=== PATIENT | female | born 1995 | race Caucasian/White ===

== ENCOUNTER 2018-02-06 08:43 | Inpatient (IN) | payer OTHER, SELFPAY ==
[2018-02-06] MEDS ORDERED: MIDAZOLAM HCL 2 MG/2 ML INJ IV PRN (10:30)
[2018-02-06] MEDS ORDERED: PROMETHAZINE 25 MG/ML VIAL IM PRN (10:30)
[2018-02-06] MEDS ORDERED: PENICILLIN G POT 5 MU/100 ML VIAL IV ONE (10:30)
[2018-02-06] MEDS ORDERED: CARBOPROST TROME 250 MCG/ML IM PRN (10:30)
[2018-02-06] MEDS ORDERED: METHYLERGONOVINE 0.2MG/ML AMP IM PRN (10:30)
[2018-02-06] MEDS ORDERED: MEPERIDINE HCL 25 MG/0.5 ML IV PRN (10:30)
[2018-02-06] MEDS ORDERED: Ringers Lactate 1,000 ML IV PRN (10:30)
[2018-02-06] MEDS ORDERED: BUTORPHANOL 1 MG/ML INJ IV PRN (10:30)
[2018-02-06] MEDS ORDERED: ROPIVACAINE HCL 100 ML IV PRN (10:43)
[2018-02-06] MEDS ORDERED: ROPIVACAINE HCL 0.2% 20ML AMP IV ONE (10:45)
[2018-02-06] MEDS ORDERED: FENTANYL CITR 100 MCG/2 ML IV ONE (10:45)
[2018-02-06 10:46] LABS: RPR Titer ND
[2018-02-06 10:49] LABS: Urine Appearance CLEAR; Urine Bilirubin NEGATIVE (NEG); Urine Blood NEGATIVE (NEG); Urine Color YELLOW; Urine Glucose NEGATIVE (NEG); Urine Protein NEGATIVE (NEG); Urine Specific Gravity 1.015 (1.005-1.030); Urine pH 6.5 (5.0-7.0)
[2018-02-06 10:54] LABS: Absolute Lymphocytes (CBC) 2.3 K/uL (0.7-4.9); Absolute Monocytes 0.8 K/uL (0.1-1.3); Absolute Neutrophil 10.4 K/uL (1.8-8.0); Basophils % 0.1 % (0-1.3); Eosinophils % 0.5 % (0-4.4); Hematocrit 31.7 % (36.0-45.0); Lymphocytes % 16.9 % (15.3-44.8); MCV 86.1 fL (80-100); MPV 8.7 fL (7.6-11.3); Monocytes % 5.7 % (3.3-12.3); RBC Red Blood Cell Count 3.69 M/uL (3.86-4.86)
[2018-02-06] MEDS ORDERED: Ringers Lactate 1,000 ML IV SCH (11:00)
[2018-02-06] MEDS ORDERED: OXYTOCIN/LR 20 UNIT/1,000 ML BAG IV SCH ×2 (11:00→18:00)
[2018-02-06 11:07] LABS: Urine Microscopic Reflex ORDER UMIC
[2018-02-06 11:14] LABS: Urine Bacteria <20 /HPF (<20); Urine Culture Reflex Order REFLEXED; Urine RBC <5 /HPF (NONE SEEN)
[2018-02-06 11:15] LABS: Urine Trichomonas PRESENT (NONE SEEN)
[2018-02-06 11:34] LABS: Glucose Level 83 mg/dL (65-120)
[2018-02-06 14:02] VITALS: BMI 35.4
--- NOTE | 2018-02-06 14:52 | PREOPHP ---
Date of Admission: 02/06/2018 Aisha Marie is a 22-year-old primigravida, 39 weeks 6 days, followed by [facility], but was not good ke eping her visits. Does not know her beta strep status. Discussion with the patient and she has been started on penicillin prophylaxis. Came into our institution in active labor. She is 4 cm on admis syed. She is now 5 cm, 70% effaced, vertex, well applied. Rupture of membranes, very light meconium . FHTs normal, reactive. We are attempting to get [facility] records, but at this point, they are not avai lable. She says she has had a very uneventful up to this point. The family history is noncontributory. The past medical history is noncontributory. She has no allergies. Physical exam is clear. HEENT clear. Pupils equal, round, reactive to light and accommodation. Con junctivae well perfused. No oral, lingual, or buccal lesions. The heart and lungs are grossly olvin l. Breast checks not done. Fundal height compatible with 39 weeks. Extremities are clear and cervi mike exam is as stated, 5 cm, 70% effaced, vertex, -1 station, and dick every 2-3 minutes. Anticipate delivery relatively soon. JAZMYNE/HEIDE Voice ID: [id number]
[2018-02-06] MEDS ORDERED: LIDOCAINE 2% INJ, 20 mL 20 ML ONE ×2 (16:50→17:04)
[2018-02-06] MEDS ORDERED: PENICILLIN 2.5 MU in NA CHLORIDE 0.9% 100 ML IV SCH (17:00)
--- NOTE | 2018-02-06 17:07 | PN ---
The patient is now 5 to 5.5 cm, 90% effaced, vertex, -1 station. She got her epidural. She cannot r eally feel anything. We may have to cut it back as time goes on. Baby still looks real good on the monitor. She will start doing pelvic rocks as I think the baby is in occiput posterior position and we expect more rapid progress once the baby rotates. JAZMYNE/HEIDE Voice ID: [id number] Report ID: [id number]
[2018-02-06] MEDS ORDERED: IBUPROFEN 200 MG TAB PO PRN (17:16)
[2018-02-06] MEDS ORDERED: DOCUSATE NA/SENNA CONC 1 TAB PO PRN (17:16)
[2018-02-06] MEDS ORDERED: DIPHENHYDRAMINE 25 MG TAB/CAP PO PRN (17:16)
[2018-02-06] MEDS ORDERED: BISACODYL 10 MG RECTAL SUPP RECT PRN (17:16)
[2018-02-06] MEDS ORDERED: Oxycodone HCl/Acetaminophen 1 TAB TAB PO PRN (17:16)
[2018-02-06] MEDS ORDERED: ACETAMINOPHEN 500 MG TAB PO PRN (17:16)
[2018-02-06] MEDS ORDERED: metroNIDAZOLE 500 MG TABLET PO ONE (18:49)
[2018-02-06] MEDS ORDERED: metroNIDAZOLE 500 MG TABLET ONE (20:01)
--- NOTE | 2018-02-06 22:43 | PREOPHP ---
Date of Admission: 02/06/2018 She is now complete, pushing quite well. Anticipate delivery relatively soon. JAZMYNE/HEIDE Voice ID: [id number]
[2018-02-06] MEDS: Oxycodone HCl/Acetaminophen 1 TAB TAB PO PRN (22:50)
[2018-02-06 23:48] LABS: RPR (Rapid Plasma Reagin) NON-REACT (NON-REACT)
--- NOTE | 2018-02-07 04:20 | OP ---
Surgeon: Emmanuel Tucker MD A 22-year-old primigravida, seen at [facility]. However, she did not attend regularly. Came into our [facility] itution. No records available. A 39 weeks and 6 days, best estimate. A 4 cm on admission. The patient received epidural anesthesia at 5 cm. Ruptured membranes with very light meconium. Ba by looked good throughout the labor. Second stage of about 30 minutes. Spontaneous vaginal delivery of a 9-pound and 3-ounce male infant. Mild shoulder dystocia. Apgars in my estimation 7 and 9 at 1 and 5 minutes. Midline second-degree laceration and 2 first-degree lacerations involving both labia minora. All sutured with 2-0 chromic after local infiltration. Melgar delivery of the placenta, wh ich was inspected and noted to be intact and normal. Estimated blood loss 400 cc. The patient had u nknown strep status, was given 2 doses of penicillin during the labor, 5 million units initial dose, 2.5 million second dose. Tolerated all procedures well. Final Diagnoses: Intrauterine gestation, 39 weeks and 6 days. Drop in delivery, epidural anesthesia , penicillin prophylaxis, mild shoulder dystocia. JAZMYNE/HEIDE Voice ID: [id number] Report ID: [id number]
[2018-02-07 07:31] VITALS: BP 125/65; TEMP 98
[2018-02-07] MEDS: Oxycodone HCl/Acetaminophen 1 TAB TAB PO PRN ×2 (09:30→19:45)
--- NOTE | 2018-02-08 05:47 | DS ---
Date of Discharge: 02/07/2018 Hospital Course: Radha Dumas 22-year-old, drop-in patient [facility] although she admits she did not go t o her visits on the regular on a regular basis, 39 weeks 6 days, best estimates. Patient came in act seamus labor 4 cm on admission. During the labor, received epidural anesthesia. Second stage of about 20-30 minutes. Spontaneous vaginal delivery of a 9 pounds, 3 ounce male , Apgars 9 at 7 and 9 according to me, 6 and 9 according the nurse, but I had the baby in my hands during the first minute. A midline second degree laceration, simulating episiotomy, repaired with 2-0 chromic, bilateral first -degree lacerations on the labia minora, both sides sutured with 2-0 chromic 2-3 stitches each side. Melgar delivery of the placenta, which was inspected and noted to be intact and normal. Estimated b lood loss approximately 400 cc. Unknown beta strep status. The patient received penicillin x2 durin g the labor. afebrile, ambulating and voiding. Lochia is normal. She will be dismissed later this evening. She can return to my office in 6 weeks for followup, or follow up with [facility], dis missed with tramadol for analgesia and full instructions. No post epidural problems. It was noted t hat she had Trichomonas in her urine. She has been treated for that and knows how this is transmitte d. Information printed has been given. Final Diagnoses: 1.Term intrauterine 39 weeks 6 days. 2.Vaginal delivery. 3.Epidural anesthesia. 4.Penicillin prophylaxis. 5.Mild shoulder dystocia. 6.Trichomonas vaginitis. JAZMYNE/HEIDE Voice ID: [id number] Report ID: [id number]
[2018-02-08 13:16] LABS: HBsAG Nonreactive (Nonreactive)
== END 2018-02-07 20:30 | disposition home or self-care (01) | DRG 774 ==
LOC: L&D 08:43 → 2ND-WC 09:22
PROVIDERS: ADMIT Specialist; ATTEND Specialist
PROC: 10907ZC Drainage of Amniotic Fluid, Therapeutic from Products of Conception, Via Natural or Artificial Opening (ICD-10-PCS; principal; 2018-02-06)
PROC: 10E0XZZ Delivery of Products of Conception, External Approach (ICD-10-PCS; 2018-02-06)
PROC: 0KQM0ZZ Repair Perineum Muscle, Open Approach (ICD-10-PCS; 2018-02-06)
DX: O70.1 Second degree perineal laceration during delivery (principal); O98.32 Other infections with a predominantly sexual mode of transmission complicating childbirth; Z37.0 Single live birth; O86.13 Vaginitis following delivery; O66.0 Obstructed labor due to shoulder dystocia; A59.01 Trichomonal vulvovaginitis; Z3A.39 39 weeks gestation of pregnancy
CPT/HCPCS: 36415; 81003; 81015; 82947; 85025; 86592; 86762; 86900; 86901; 87086; 87088; 87340; G0433; J2210; J2590; J2795; J3010

== ENCOUNTER 2021-01-20 15:24 | Emergency (ER) | payer OTHER ==
--- OUTSIDE RECORDS SUMMARY | 2021-01-20 15:27 | XMS REPORT | Continuity of Care Document ---
:1995 Author Organization [facility] t Address [address] [place] [address] Care Team Providers Name Role Phone Singer DIEZ Attending Clinician Mahamed HEADLEY Attending Clinician Doctor Unassigned, Name Attending Clinician Unavailable Problems This patient has no known problems. Allergies, Adverse Reactions, Alerts This patient has no known allergies or adverse reactions. Medications This patient has no known medications. Procedures This patient has no known procedures. Encounters Start End Encounter Admission Attending Care Care Encounter Source Date/Time Date/Time Type Type Clinicians Facility Department ID 2020-10-06 2020-10-06 Emergency Ge Tolbert [facility] [id number] 16:25:00 20:28:00 Ming Irby [id number] [place] [id number] [place] [id number] 2020-10-06 2020-10-06 Orders Doctor PIZANO [id number] 00:00:00 00:00:00 Only UnassHIEN white [id number] [place] [id number] 2019-04-17 2019-04-17 Orders Doctor PIZANO [id number] 00:00:00 00:00:00 Only UnassignedHIEN [id number] [place] [id number] Results This patient has no known results.
--- NOTE | 2021-01-20 17:31 | RAD REPORT ---
EXAM DESCRIPTION: RAD - Chest Single View - 01/20/2021 5:21 pm CLINICAL HISTORY: Cough;Chest pain Chest pain. COMPARISON: No comparisons FINDINGS: Portable technique limits examination quality. The lungs are grossly clear. The heart is normal in size. No displaced fractures. IMPRESSION: No acute intrathoracic process suspected.
--- NOTE | 2021-01-20 17:46 | ER ---
Nurse's Notes [facility] Name: Aisha Marie Age: 25 yrs Sex: Female : 1995 Arrival Date: 01/20/2021 Time: 15:27 Bed 16 Private MD: Diagnosis: Acute upper respiratory infection, unspecified;Other chest pain Presentation: 01/20 16:18 Chief complaint: Patient states: Woke up last night with dry cough and now every time I ca1 cough, makes my arm and chest hurt real bad. But no chest pain without the cough. Reports nausea x 4 - 5 days. Denies runny nose, congestion, fever. Also reports pain on throat. Coronavirus screen:. Ebola Screen: Patient negative for fever greater than or equal to 101.5 degrees Fahrenheit, and additional compatible Ebola Virus Disease symptoms Patient denies exposure to infectious person. Patient denies travel to an Ebola-affected area in the 21 days before illness onset. No symptoms or risks identified at this time. Initial Sepsis Screen: Does the patient meet any 2 criteria? No. Patient's initial sepsis screen is negative. Does the patient have a suspected source of infection? No. Patient's initial sepsis screen is negative. Risk Assessment: Do you want to hurt yourself or someone else? Patient reports no desire to harm self or others. Onset of symptoms was January 20, 2021. 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 - Social history:: Smoking status: Patient denies any tobacco usage or history of. Screenin:44 Abuse screen: Denies threats or abuse. Nutritional screening: No deficits noted. tw2 Tuberculosis screening: No symptoms or risk factors identified. Fall Risk None identified. Assessment: 16:30 General: Appears in no apparent distress. obese, well groomed, Behavior is calm, tw2 cooperative, appropriate for age. Pain: Pain does not radiate. Pain began 2-3 days ago. Neuro: Level of Consciousness is awake, alert, obeys commands, Oriented to person, place, time, situation. Cardiovascular: Patient's skin is warm and dry. Respiratory: Reports cough that is non-productive, persistent Airway is patent Respiratory effort is even, unlabored, Respiratory pattern is regular, symmetrical. GI: No signs and/or symptoms were reported involving the gastrointestinal system. : No signs and/or symptoms were reported regarding the genitourinary system. Musculoskeletal: Range of motion: intact in all extremities. 17:40 Reassessment: Patient appears in no apparent distress at this time. No changes from tw2 previously documented assessment. Patient and/or family updated on plan of care and expected duration. Pain level reassessed. Patient is alert, oriented x 3, equal unlabored respirations, skin warm/dry/pink. provider at bedside at this time. 18:40 Reassessment: Patient appears in no apparent distress at this time. No changes from tw2 previously documented assessment. Patient and/or family updated on plan of care and expected duration. Pain level reassessed. Patient is alert, oriented x 3, equal unlabored respirations, skin warm/dry/pink. Vital Signs: 16:18 BP 118 / 61; Pulse 96; Resp 18 S; Temp 97.1(TE); Pulse Ox 99% on R/A; Weight 108.86 kg ca1 (R); Height 5 ft. 5 in. (165.10 cm) (R); Pain 6/10; 16:18 Body Mass Index 39.94 (108.86 kg, 165.10 cm) ca1 ED Course: 15:27 Patient arrived in ED. as 16:21 Triage completed. ca1 16:22 Arm band placed on right wrist. ca1 16:26 Bed in low position. Call light in reach. Pulse ox on. NIBP on. tw2 16:27 Radha Leigh RN is Primary Nurse. tw2 16:27 Freddy Shay PA is PHCP. jr8 16:28 Tad Shaffer MD is Attending Physician. jr8 16:32 Strep Sent. ca1 16:44 Patient maintains SpO2 saturation greater than 95% on room air. tw2 17:21 XRAY Chest (1 view) In Process Unspecified. EDMS 18:41 No provider procedures requiring assistance completed. Patient did not have IV access tw2 during this emergency room visit. Administered Medications: No medications were administered Outcome: 17:45 Discharge ordered by . enrrique 18:41 Patient left the ED. kj1 18:41 Discharged to home ambulatory, with family. tw2 18:41 Condition: stable 18:41 Discharge instructions given to patient, family, Instructed on discharge instructions, follow up and referral plans. Demonstrated understanding of instructions, follow-up care. Signatures: Dispatcher [employer] EDMS Rachel Miles Josh, PA PA jr8 Radha Leigh RN RN tw2 Crystal Morales RN RN ca1 Lor Slaughter kj1 Corrections: (The following items were deleted from the chart) 17:43 16:32 CORONAVIRUS+MR.LAB.BRZ drawn and sent. oliva SPARKS
--- NOTE | 2021-01-20 17:46 | EDPHYS ---
Physician Documentation [facility] Name: Aisha Marie Age: 25 yrs Sex: Female : 1995 Arrival Date: 01/20/2021 Time: 15:27 Bed 16 Private MD: ED Physician Tad Shaffer HPI: 01/20 16:56 This 25 yrs old Female presents to ER via Ambulatory with complaints of r/o jr8 covid, Chest Pain, Cough. 17:43 Patient stated that she has had cough with pain from coughing along with sore throat jr8 and hoarseness. Denies fevers or other symptoms . Severity of symptoms: At their worst the symptoms were mild in the emergency department the symptoms are unchanged. The patient has not experienced similar symptoms in the past. The patient has not recently seen a physician. 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 - Social history:: Smoking status: Patient denies any tobacco usage or history of. ROS: 17:43 Eyes: Negative for injury, pain, redness, and discharge, Neck: Negative for injury, jr8 pain, and swelling, Abdomen/GI: Negative for abdominal pain, nausea, vomiting, diarrhea, and constipation, Back: Negative for injury and pain, MS/Extremity: Negative for injury and deformity, Skin: Negative for injury, rash, and discoloration, Neuro: Negative for headache, weakness, numbness, tingling, and seizure. 17:43 ENT: Positive for sore throat. 17:43 Cardiovascular: Positive for chest pain, with cough, Negative for edema, orthopnea, palpitations, paroxysmal nocturnal dyspnea. 17:43 Respiratory: Positive for cough, Negative for dyspnea on exertion, shortness of breath, sputum production, wheezing. Exam: 17:43 Eyes: Pupils equal round and reactive to light, extra-ocular motions intact. Lids and jr8 lashes normal. Conjunctiva and sclera are non-icteric and not injected. Cornea within normal limits. Periorbital areas with no swelling, redness, or edema. ENT: Nares patent. No nasal discharge, no septal abnormalities noted. Tympanic membranes are normal and external auditory canals are clear. Oropharynx with no redness, swelling, or masses, exudates, or evidence of obstruction, uvula midline. Mucous membranes moist. Neck: Trachea midline, no thyromegaly or masses palpated, and no cervical lymphadenopathy. Supple, full range of motion without nuchal rigidity, or vertebral point tenderness. No Meningismus. Chest/axilla: Normal chest wall appearance and motion. Nontender with no deformity. No lesions are appreciated. Cardiovascular: Regular rate and rhythm with a normal S1 and S2. No gallops, murmurs, or rubs. Normal PMI, no JVD. No pulse deficits. Respiratory: Lungs have equal breath sounds bilaterally, clear to auscultation and percussion. No rales, rhonchi or wheezes noted. No increased work of breathing, no retractions or nasal flaring. Abdomen/GI: Soft, non-tender, with normal bowel sounds. No distension or tympany. No guarding or rebound. No evidence of tenderness throughout. Back: No spinal tenderness. No costovertebral tenderness. Full range of motion. Skin: Warm, dry with normal turgor. Normal color with no rashes, no lesions, and no evidence of cellulitis. MS/ Extremity: Pulses equal, no cyanosis. Neurovascular intact. Full, normal range of motion. Neuro: Awake and alert, GCS 15, oriented to person, place, time, and situation. Cranial nerves II-XII grossly intact. Motor strength 5/5 in all extremities. Sensory grossly intact. Cerebellar exam normal. Normal gait. Vital Signs: 16:18 BP 118 / 61; Pulse 96; Resp 18 S; Temp 97.1(TE); Pulse Ox 99% on R/A; Weight 108.86 kg ca1 (R); Height 5 ft. 5 in. (165.10 cm) (R); Pain 6/10; 16:18 Body Mass Index 39.94 (108.86 kg, 165.10 cm) ca1 MDM: 16:28 Patient medically screened. jr8 17:43 Data reviewed: vital signs, nurses notes, lab test result(s), radiologic studies, plain jr8 films. Data interpreted: Pulse oximetry: on room air is 99 %. Interpretation: normal. Counseling: I had a detailed discussion with the patient and/or guardian regarding: the historical points, exam findings, and any diagnostic results supporting the discharge/admit diagnosis, lab results, radiology results, the need for outpatient follow up, a family practitioner, to return to the emergency department if symptoms worsen or persist or if there are any questions or concerns that arise at home. 01/20 16:25 Order name: Strep; Complete Time: 17:59 ca1 01/20 16:53 Order name: XRAY Chest (1 view); Complete Time: 17:33 jr8 01/20 17:57 Order name: Throat Culture EDMS 01/20 18:22 Order name: SARS-COV-2 RT PCR; Complete Time: 18:42 EDMS Administered Medications: No medications were administered Disposition: 19:07 Co-signature as Attending Physician, Tad Shaffer MD. rn Disposition: 01/20/21 17:45 Discharged to Home. Impression: Acute upper respiratory infection, unspecified, Other chest pain. - Condition is Stable. - Discharge Instructions: Chest Wall Pain, Upper Respiratory Infection, Adult. - Prescriptions for ketorolac 10 mg Oral tablet - take 1 tablet by ORAL route every 6 hours not to exceed 40 mg in 24hrs; 12 tablet. Prednisone 20 mg Oral Tablet - take 1 tablet by ORAL route once daily for 5 days; 5 tablet. Tessalon Perles 100 mg Oral Capsule - take 1 capsule by ORAL route every 8 hours As needed; 15 capsule. - Medication Reconciliation Form, Thank You Letter, Antibiotic Education, Prescription Opioid Use, Work release form, Family Work Release form. - Follow up: Private Physician; When: As needed; Reason: Recheck today's complaints, Continuance of care, Re-evaluation by your physician. - Problem is new. - Symptoms have improved. Signatures: Dispatcher [employer] EDVA Tad Shaffer MD MD rn Roszak, Josh, PA PA jr8 Crystal Morales RN RN ca1 Lor Slaughter kj1 Corrections: (The following items were deleted from the chart) 17:43 16:24 CORONAVIRUS+MR.LAB.BRZ ordered. [facility] 17:45 17:45 01/20/2021 17:45 Discharged to Home. Impression: Acute upper respiratory jr8 infection, unspecified. Condition is Stable. Forms are Work release form, Family Work Release, Medication Reconciliation Form, Thank You Letter, Antibiotic Education, Prescription Opioid Use. Follow up: Private Physician; When: As needed; Reason: Recheck today's complaints, Continuance of care, Re-evaluation by your physician. Problem is new. Symptoms have improved. jr8 18:41 17:45 01/20/2021 17:45 Discharged to Home. Impression: Acute upper respiratory kj1 infection, unspecified; Other chest pain. Condition is Stable. Forms are Work release form, Family Work Release, Medication Reconciliation Form, Thank You Letter, Antibiotic Education, Prescription Opioid Use. Follow up: Private Physician; When: As needed; Reason: Recheck today's complaints, Continuance of care, Re-evaluation by your physician. Problem is new. Symptoms have improved. jr8
[2021-01-20 18:53] VITALS: BP 118/61; TEMP 97.1; O2SAT 99
== END 2021-01-20 18:41 | disposition home or self-care (01) ==
LOC: ER 15:24
DX: J06.9 Acute upper respiratory infection, unspecified (principal); Z20.822 Contact with and (suspected) exposure to COVID-19
CPT/HCPCS: 87070; 87081; 71045; 99284; U0003

== ENCOUNTER 2025-01-17 15:05 | Emergency (ER) | payer SELFPAY ==
--- OUTSIDE RECORDS SUMMARY | 2025-01-17 15:14 | XMS REPORT | Continuity of Care Document ---
Author Name Unknown Address [address] [facility] [address] [place] [address] [facility] Address [address] [facility] [place] [address] Care Team Providers Care Communications Tower Technician Name Role Phone NO PHYSICIAN, . Primary Care Physician Unavailab MÓNICA Turk Attending Clinician UnavailELISE Bhakta Attending Clinician Unavailable ELISE IRBY Attending Clinician Unavailable CIARA TOLENTINO Attending Clinician Unavailable LINDY BLAIR Attending Clinician Unavailable Doctor Unassigned, [place] Attending Clinician Yasmine Dwyer MA Attending Clinician UnavailTRINITY Juarez Attending Clinician Unavailable Trinity Crabtree MD Attending Clinician Parker Dent CRNA Attending Clinician Stan Pike CRNA Attending Clinician Argueta MD, Kimberly Attending Clinician Only, Ad[facility] Test Attending Clinician Unavailable 2, [facility] Attending Clinician Unavailable HEATHER MOORE Attending Clinician UnavailHEATHER Yadav Attending Clinician Unavaila Brittany Ruano PA-C Attending Clinician [phone] Yin Morales MD Attending Clinician [phone] CARLENE Attending Clinician Unavailable Jannet_Lydia Attending Clinician Unavailable ARMANDO LOPEZ Attending Clinician Unavail able HI NUNEZ Attending Clinician Unavailable Mónica Marquez MD Attending Clinician [phone] Hi Basilio Attending Clinician [phone] Pob, [facility] Main Attending Clinician UnavailGe Pace DO Attending Clinician [phone] MÓNICA MARQUEZ Admitting Clinician Unavailabl RAMO Gong Admitting Clinician Unavailab ELISE Espino Admitting Clinician Unavailable LINDY BLAIR Admitting Clinician Unavailable TRINITY CRABTREE Admitting Clinician Unavailable Trinity Crabtree MD Admitting Clinician [phone] CARLENE Admitting Clinician Unavailable Andreia Admitting Clinician Unavailable Mónica Marquez MD Admitting Clinician [phone] Payers Payer Name Policy Type Policy Number Effective Date Expirati on Date Source [facility] MEDICAID [id number] 2019 00:00:00 [facility] [id number] 2021 00:00:00 [facility] (MEDICAID REPLACEMENT - HMO) [id number] Problems Condition Name Condition Details Condition Category Status Onset Date Resolution Date Last Treatment Date Treating Clinician Comments Source Encounter for elective induction of labor Encounter for elective induction of labor Disease Active 05-16 00:00: 00 [facility] Liveborn infant, of faith , born in hospital by vaginal delivery Liveborn , of faith , born in hospital by vaginal delivery Disease Active 05-16 00:00: 00 [facility] Insufficie nt care in third trimester Insufficie nt care in third trimester Disease Active 05-03 00:00: 00 [facility] Rubella non-immune status, antepartum Rubella non-immune status, antepartum Disease Active 8 00:00: 00 [facility] Obesity in Obesity in Disease Active 8 00:00: 00 [facility] High-risk in third trimester High-risk in third trimester Disease Active 8 00:00: 00 [facility] Anemia of mother in , antepartum Anemia of mother in , antepartum Disease Active 8 00:00: 00 [facility] GBS (group B Streptococ cus carrier), +RV culture, 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), +RV culture, currently Disease Active 8 00:00: 00 [facility] Anemia of mother in , antepartum Anemia of mother in , antepartum Disease Active 8 00:00: 00 [facility] Abnormal maternal glucose tolerance, antepartum Abnormal maternal glucose tolerance, antepartum Disease Active 730 00:00: 00 [facility] Anxiety Anxiety Problem Active 2020-10 014 00:00: 00 [facility] Attention deficit hyperactiv ity disorder Attention Deficit Hyperactiv ity Disorder Problem Active 2020-10 014 00:00: 00 [facility] Closed displaced fracture of proximal phalanx of left ring finger, initial encounter Closed displaced fracture of proximal phalanx of left ring finger, initial encounter Disease Active 05-05 00:00: 00 Overview: Formattin g of this note might be different from the original. Added automatic ally from request for surgery [id number] [facility] Obesity (BMI 30-39.9) Obesity (BMI 30-39.9) Disease Active 7-17 00:00: 00 [facility] Positive depression screening Positive depression screening Disease Active 02-04 00:00: 00 [facility] History of bipolar disorder History of bipolar disorder Disease Active 02-04 00:00: 00 [facility] Unspecifie d acute lower respirator y infection Unspecifie d acute lower respirator y infection Disease Resolve d 2021-0 7-30 00:00: 00 2022-05-03 00:00:00 2022-05-03 10:06:24 [facility] Morbid obesity with body mass index of 40.0-49.9 Morbid obesity with body mass index of 40.0-49.9 Disease Resolve d 2021-0 7-22 00:00: 00 2022-05-03 00:00:00 2022-05-03 10:06:44 [facility] Anemia, Anemia, Disease Resolve d 2018-0 7-19 00:00: 00 2022-05-03 00:00:00 2022-05-03 10:05:48 [facility] Back pain affecting in third trimester Back pain affecting in third trimester Disease Resolve d 2018-0 6-17 00:00: 00 2022-05-03 00:00:00 2022-05-03 10:05:52 [facility] Trichomona l vaginitis during in third trimester Trichomona l vaginitis during in third trimester Disease Resolve d 2018-0 5-07 00:00: 00 2022-05-03 00:00:00 2022-05-03 10:05:40 [facility] (normal spontaneou s vaginal delivery) (normal spontaneou s vaginal delivery) Disease Resolve d 2018-0 7-19 00:00: 00 2019-06-04 00:00:00 2019-06-04 15:19:04 [facility] Single live Single live Disease Resolve d 2019-0 7-19 00:00: 00 2019-06-04 00:00:00 2019-06-04 15:19:07 [facility] 39 weeks gestation of 39 weeks gestation of Disease Resolve d 2019-0 7-18 00:00: 00 2019-06-04 00:00:00 2019-06-04 15:19:02 [facility] Labor and delivery indication for care or interventi on Labor and delivery indication for care or interventi on Disease Resolve d 2019-0 7-17 00:00: 00 2019-06-04 00:00:00 2019-06-04 15:19:03 [facility] Primigravi da in third trimester Primigravi da in third trimester Disease Resolve d 05 00:00: 00 2019-02-04 00:00:00 2019-02-04 14:04:11 [facility] Contracept seamus management Contracept seamus management Disease Resolve d 10-29 00:00: 00 2019-02-04 00:00:00 2019-02-04 14:04:18 [facility]mate in correction al facility Inmate in correction al facility Disease Resolve d 10-29 00:00: 00 2019-02-04 00:00:00 2019-02-04 14:07:51 [facility] Bipolar 1 disorder Bipolar 1 disorder Disease Resolve d 10-08 00:00: 00 2017-12-03 00:00:00 2017-12-03 14:14:07 [facility] ADHD (attention deficit hyperactiv ity disorder) ADHD (attention deficit hyperactiv ity disorder) Disease Resolve d 10-08 00:00: 00 2017-12-03 00:00:00 2017-12-03 14:14:10 [facility] History of depression History of depression Disease Resolve d 10-08 00:00: 00 2017-12-03 00:00:00 2017-12-03 14:14:14 [facility] Dysmenorrh ea Dysmenorrh ea Disease Resolve d 10-08 00:00: 00 2017-10-29 00:00:00 2017-10-29 14:00:00 [facility] Allergies, Adverse Reactions, Alerts Allergy Name Allergy Type Status Severity Reaction(s) Onset Date Inactive Date Treating Clinician Comments Source [place] - Intraven ous Propensi ty to adverse reaction to drug Active 03-28 00:00: 00 NO KNOWN ALLERGIE S Drug Class Active [facility] Social History Social Habit Start Date Stop Date Quantity Comments Source ASSERTION [facility] Gender [facility] Alcoh[facility] beverage intake 2023-10-23 00:00:00 2023-10-23 00:00:00 Ex-drinker (finding) [facility] Alcohol intake 2023-09-03 00:00:00 2023-09-03 00:00:00 Ex-drinker (finding) [facility] History of Social function 2023-06-22 00:00:00 2023-06-22 00:00:00 [facility] Exposure to SARS-CoV-2 (event) 2022-05-06 00:00:00 2022-05-16 05:36:00 Not sure [facility] Tobacco use and exposure 2022-04-21 00:00:00 2022-04-21 00:00:00 Smokeless tobacco non-user [facility] Sex assigned at 1995 00:00:00 1995 00:00:00 [facility] Smoking Status Start Date Stop Date Source Former Smoker [facility] Never smoked tobacco [facility] Medications Ordered Medication Name Filled Medication Name Start Date Stop Date Current Medication? Ordering Clinician Indication Dosage Frequency Signature (SIG) Comments Components Source Nitrofurant oin (Macrobid *) 100 Mg CAP Nitrofurant oin (Macrobid *) 100 Mg CAP 12-17 23:03: 00 [facility] FENTanyl PF (SUBLIMAZE (PF)) injection 75 mcg 03-29 23:30: 00 03-29 22:25 :00 No 75ug 75 mcg, Slow IV Push, ONCE, 1 dose, On 03/29/24 at 1830, STAT [facility] morpHINE (4 mg/mL) injection 4 mg 03-29 21:45: 00 03-29 21:39 :00 No 4mg 4 mg, Slow IV Push, ONCE, 1 dose, On 03/29/24 at 1645, STAT [facility] ondansetron (ZOFRAN (PF)) injection 4 mg 03-29 21:30: 00 03-29 20:42 :00 No 4mg 4 mg, Slow IV Push, ONCE, 1 dose, On 03/29/24 at 1630, PETER [facility] NaCl 0.9% (NS) bolus infusion 1,000 mL 03-29 21:30: 00 03-29 22:20 :00 No 1000mL at 999 mL/hr, 1,000 mL, IV Infusion, ONCE, 1 dose, On 03/29/24 at 1630, STAT [facility] iopamidol (ISOVUE 370-500 mL) injection 130 mL 03-29 21:15: 00 03-29 21:12 :00 No [id number] 130mL 130 mL, Intravenou s, ONCE, 1 dose, On 03/29/24 at 1615, Routine [facility] cefTRIAXone (ROCEPHIN) 1,000 mg in NaCl 0.9% (NS) 100 mL MINI-BAG 03-29 21:00: 00 03-29 22:20 :00 No 1000mg 1,000 mg, IV Piggyback, ONCE, 1 dose, On 03/29/24 at 1600, Administer over 30 Minutes, 100 mL, Reason for Anti-Infec tive: Documented Infection, Documented Infection Site: Urine, Duration of Therapy: Once (ED) [facility] pantoprazol e (PROTONIX) injection 40 mg 03-29 20:30: 00 03-29 20:42 :00 No 40mg 40 mg, Slow IV Push, ONCE, 1 dose, On 03/29/24 at 1530 [facility] pantoprazol e 40 mg EC tablet 03-29 00:00: 00 Yes [id number] 40mg Take 1 tablet by mouth in the morning. [facility] ondansetron 4 mg disintegrat ing tablet 03-29 00:00: 00 Yes [id number] 4mg Take 1 tablet by mouth every 4 (four) hours as needed for Nausea and Vomiting (N/V). [facility] cephALEXin 500 mg capsule 03-29 00:00: 00 04-06 04:59 :00 No [id number] 500mg Take 1 capsule by mouth in the morning and 1 capsule at noon and 1 capsule in the evening. Do all this for 7 days. [facility] buPROPion XL (WELLBUTRIN XL) 150 mg 24 hr tablet 2022-10 10:07: 13 Yes 150mg Take 1 tablet by mouth in the morning. [facility] topiramate 100 mg tablet 2022-10 00:00: 00 Yes [id number] 100mg Take 1 tablet by mouth in the morning. [facility] topiramate 50 mg tablet 2022-10 00:00: 00 09-03 00:00 :00 No 50mg Take 1 tablet by mouth in the morning. [facility] iron,carb/v it C/vit B12/folic (IRON 100 PLUS ORAL) 06-22 15:50: 14 06-22 00:00 :00 No Take by mouth. [facility] 25/iron fum/folic/d kelsey (-1 ORAL) 06-22 15:50: 08 06-22 00:00 :00 No Take by mouth. [facility] buPROPion XL (WELLBUTRIN XL) 150 mg 24 hr tablet 06-22 15:34: 49 Yes 150mg Take 1 tablet by mouth in the morning. [facility] topiramate 25 mg tablet 06-22 00:00: 00 07-20 04:59 :00 No [id number] Take 1 tablet by mouth 2 (two) times daily for 7 days, THEN 2 tablets 2 (two) times daily for 21 days. [facility] topiramate 25 mg tablet 06-11 00:00: 00 06-22 00:00 :00 No 25mg Take 1 tablet by mouth in the morning. [facility] proMETHazin e 25 mg tablet 17 00:00: 00 Yes TAKE 1 TO 2 TABLETS BY MOUTH EVERY 6 HOURS NEEDED FOR NAUSEA AND VOMITING [facility] DISSOLVE 1 TABLET IN MOUTH EVERY 8 HOURS NEEDED FOR NAUSEA 2021-10 00:00: 00 No iron,carb/v it C/vit B12/folic (IRON 100 PLUS ORAL) 05-18 09:19: 19 Yes Take by mouth. [facility] iron,carb/v it C/vit B12/folic (IRON 100 PLUS ORAL) 05-17 18:48: 58 Yes Take by mouth. [facility] HYDROcodone -acetaminop hen (NORCO 5) 5-325 mg tablet 1 tablet 05-17 04:30: 50 Yes 1{tbl} 1 tablet, Oral, Q6HPRN, Starting on Sun05/16/22 at 2330, Until Discontinu ed, Routine, Pain (scale 7-10) [facility] ibuprofen (IBU) tablet 600 mg 05-17 04:30: 50 Yes 600mg 600 mg, Oral, Q6HPRN, Starting on Sun05/16/22 at 2330, Until Discontinu ed, Routine, Pain (scale 4-6) [facility] acetaminoph en (TYLENOL) tablet 650 mg 05-17 04:30: 49 Yes 650mg 650 mg, Oral, Q6HPRN, Starting on Sun05/16/22 at 2330, Until Discontinu ed, Routine, Pain (scale 1-3) [facility] diphenhydrA MINE (BENADRYL) tablet 25 mg 05-17 04:30: 49 Yes 25mg 25 mg, Oral, Q6HPRN, Starting on Sun05/16/22 at 2330, Until Discontinu ed, Routine, Sleep, Itching [facility] ondansetron (ZOFRAN (PF)) injection 4 mg 05-17 04:30: 49 Yes 4mg 4 mg, Slow IV Push, Q8HPRN, Starting on Sun05/16/22 at 2330, Until Discontinu ed, Routine, Nausea and Vomiting (N/V) [facility] simethicone (GAS RELIEF (SIMETHICON E)) chewable tablet 160 mg 05-17 04:30: 49 Yes 160mg 160 mg, Oral, PC+HSPRN, Starting on Sun05/16/22 at 2330, Until Discontinu ed, Routine, Gas [facility] docusate (COLACE) capsule 200 mg 05-17 04:30: 49 Yes 200mg 200 mg, Oral, QDAILYPRN, Starting on Sun05/16/22 at 2330, Until Discontinu ed, Routine, Constipati on [facility] magnesium hydroxide (MILK OF MAGNESIA) 400 mg/5 mL suspension 30 mL 05-17 04:30: 49 Yes 30mL 30 mL, Oral, QDAILYPRN, Starting on Sun05/16/22 at 2330, Until Discontinu ed, Routine, Constipati on [facility] benzocaine- menthol (DERMOPLAST ) 20-0.5 % topical spray 05-17 04:30: 49 Yes Topical, PRN, Starting on Sun05/16/22 at 2330, Until Discontinu ed, Routine, Perineum discomfort [facility] vitamin w/FA tablet 05-17 00:00: 00 Yes [id number] 1{tbl} Take 1 tablet by mouth in the morning. [facility] ibuprofen 600 mg tablet 05-17 00:00: 00 Yes [id number] 600mg Take 1 tablet by mouth every 6 (six) hours as needed (Pain). Take with food or milk. [facility] vitamin w/FA tablet 05-17 00:00: 00 06-22 00:00 :00 No [id number] 1{tbl} Take 1 tablet by mouth in the morning. [facility] docusate 100 mg capsule 05-17 00:00: 00 06-22 00:00 :00 No [id number] 200mg Take 2 capsules by mouth once daily as needed for Constipati on. [facility] ferrous sulfate 325 mg (65 mg iron) tablet 05-17 00:00: 00 06-22 00:00 :00 No [id number] 325mg Take 1 tablet by mouth in the morning and 1 tablet in the evening. [facility] fentaNYL 2 mcg/mL + bupivacaine 0.1% in NS 250 mL epidural bag 05-16 18:50: 00 05-17 12:01 :34 No Intra-op [facility] fentaNYL 2 mcg/mL + bupivacaine 0.1% in NS 250 mL epidural bag 05-16 18:49: 00 05-17 12:01 :34 No Intra-op [facility] lidocaine-e pinephrine (XYLOCAINE W/EPINEPHRI NE) 1.5 %-1:200,000 injection 05-16 18:47: 00 05-17 12:01 :34 No Intraderma l, ONCE INTRA PROCEDURE, Starting on Sun05/16/22 at 1347, Until Sun05/17/22 at 0701, Routine, Intra-op [facility] oxytocin (PITOCIN) 30 units in NS 500 mL IV infusion 05-16 10:38: 47 05-17 04:31 :45 No 2mU/min at 2-40 mL/hr, IV Infusion, TITRATE, Starting on Sun05/16/22 at 0538, Until Sun05/16/22 at 2331, PETER [facility] D5W-LR IV infusion 1,000 mL 05-16 09:45: 00 05-17 04:31 :45 No 1000mL at 125 mL/hr, IV Infusion, CONTINUOUS , Starting on Sun05/16/22 at 0445, Until Sun05/16/22 at 2331, Routine [facility] lactated ringers IV infusion 500 mL 05-16 09:32: 18 05-17 04:31 :45 No 500mL at 999 mL/hr, 500 mL, IV Infusion, PRN - SEE INSTRUCTIO NS, Starting on Sun05/16/22 at 0432, Until Sun05/16/22 at 2331, Routine [facility] iron,carb/v it C/vit B12/folic (IRON 100 PLUS ORAL) 05-16 04:19: 17 Yes Take by mouth. [facility] TAKE ONE TABLET EVERY 6 HOURS FOR 5 DAYS 8- 00:00: 00 No 500 ondansetron 4 mg disintegrat ing tablet 8 00:00: 00 03-29 00:00 :00 No [id number] 4mg Take 1 tablet by mouth every 8 (eight) hours as needed for Nausea and Vomiting (N/V). [facility] TAKE ONE TABLET EVERY 6 HOURS FOR 5 DAYS 04-04 00:00: 00 No 500 Dose Unknown 03-31 00:00: 00 No TAKE ONE TABLET EVERY 6 HOURS FOR 5 DAYS 03-30 00:00: 00 No 500 TAKE ONE TABLET EVERY 6 HOURS FOR 5 DAYS 03-28 00:00: 00 No 500 QUEtiapine 25 mg tablet 03-29 00:00: 00 06-22 00:00 :00 No TAKE 1 TABLET BY MOUTH AT BEDTIME FOR 7 DAYS THEN IF NO SIDE EFFECTS INCREASE TO 2 TABLET BY MOUTH AT BEDTIME [facility] gabapentin 100 mg capsule 03-18 00:00: 00 06-22 00:00 :00 No TAKE 1 CAPSULE BY MOUTH ONCE DAILY FOR 7 DAYS IF NOT SIDE EFFECTS INCREASE TO 1 CAPSULE TWICE DAILY [facility] tramadol 50 mg tablet tramadol 50 mg tablet No tramadol 50 mg tablet [facility] Xulane 150 mcg-35 mcg/24 hr transdermal patch Apply 1 patch every week by transdermal route. Xulane 150 mcg-35 mcg/24 hr transdermal patch Apply 1 patch every week by transdermal route. No 1patch( es) Q1W Xulane 150 mcg-35 mcg/24 hr transderma l patch Apply 1 patch every week by transderma l route. [facility] Immunizations Ordered Immunization Name Filled Immunization Name Date Status Comments Source TDAP 2019-02-04 00:00:00 Completed [facility] TDAP 2019-02-04 00:00:00 Completed [facility] TDAP 2019-02-04 00:00:00 Completed [facility] TDAP 2019-02-04 00:00:00 Completed [facility] TDAP 2019-02-04 00:00:00 Completed [facility] TDAP 2019-02-04 00:00:00 Completed [facility] TDAP 2019-02-04 00:00:00 Completed [facility] TDAP 2017-10-29 00:00:00 Completed [facility] TDAP 2017-10-29 00:00:00 Completed [facility] TDAP 2017-10-29 00:00:00 Completed [facility] TDAP 2017-10-29 00:00:00 Completed [facility] TDAP 2017-10-29 00:00:00 Completed [facility] TDAP 2017-10-29 00:00:00 Completed [facility] TDAP 2017-10-29 00:00:00 Completed [facility] PPD (TB) 2013-12-22 00:00:00 Completed [facility] PPD (TB) 2013-12-22 00:00:00 Completed [facility] PPD (TB) 2013-12-22 00:00:00 Completed [facility] PPD (TB) 2013-12-22 00:00:00 Completed [facility] PPD (TB) 2013-12-22 00:00:00 Completed [facility] PPD (TB) 2013-12-22 00:00:00 Completed [facility] PPD (TB) 2013-12-22 00:00:00 Completed [facility] HPV 2011-12-21 00:00:00 Completed [facility] HPV 2011-12-21 00:00:00 Completed [facility] HPV 2011-12-21 00:00:00 Completed [facility] HPV 2011-12-21 00:00:00 Completed [facility] HPV 2011-12-21 00:00:00 Completed [facility] HPV 2011-12-21 00:00:00 Completed [facility] HPV 2011-12-21 00:00:00 Completed [facility] HPV 2011-06-29 00:00:00 Completed [facility] Influenza Virus Vaccine 2011-06-29 00:00:00 Completed [facility] HPV 2011-06-29 00:00:00 Completed [facility] Influenza Virus Vaccine 2011-06-29 00:00:00 Completed [facility] HPV 2011-06-29 00:00:00 Completed [facility] Influenza Virus Vaccine 2011-06-29 00:00:00 Completed [facility] HPV 2011-06-29 00:00:00 Completed [facility] Influenza Virus Vaccine 2011-06-29 00:00:00 Completed [facility] HPV 2011-06-29 00:00:00 Completed [facility] Influenza Virus Vaccine 2011-06-29 00:00:00 Completed [facility] HPV 2011-06-29 00:00:00 Completed [facility] Influenza Virus Vaccine 2011-06-29 00:00:00 Completed [facility] HPV 2011-06-29 00:00:00 Completed [facility] Influenza Virus Vaccine 2011-06-29 00:00:00 Completed [facility] TDAP 2010-10-01 00:00:00 Completed [facility] TDAP 2010-10-01 00:00:00 Completed [facility] TDAP 2010-10-01 00:00:00 Completed [facility] TDAP 2010-10-01 00:00:00 Completed [facility] TDAP 2010-10-01 00:00:00 Completed [facility] TDAP 2010-10-01 00:00:00 Completed [facility] TDAP 2010-10-01 00:00:00 Completed [facility] HPV 2010-07-22 00:00:00 Completed [facility] Influenza Virus Vaccine 2010-07-22 00:00:00 Completed [facility] HPV 2010-07-22 00:00:00 Completed [facility] Influenza Virus Vaccine 2010-07-22 00:00:00 Completed [facility] HPV 2010-07-22 00:00:00 Completed [facility] Influenza Virus Vaccine 2010-07-22 00:00:00 Completed [facility] HPV 2010-07-22 00:00:00 Completed [facility] Influenza Virus Vaccine 2010-07-22 00:00:00 Completed [facility] HPV 2010-07-22 00:00:00 Completed [facility] Influenza Virus Vaccine 2010-07-22 00:00:00 Completed [facility] HPV 2010-07-22 00:00:00 Completed [facility] Influenza Virus Vaccine 2010-07-22 00:00:00 Completed [facility] HPV 2010-07-22 00:00:00 Completed [facility] Influenza Virus Vaccine 2010-07-22 00:00:00 Completed [facility] HPV 2009-09-13 00:00:00 Completed [facility] Influenza Virus Vaccine 2009-09-13 00:00:00 Completed [facility] HPV 2009-09-13 00:00:00 Completed [facility] Influenza Virus Vaccine 2009-09-13 00:00:00 Completed [facility] HPV 2009-09-13 00:00:00 Completed [facility] Influenza Virus Vaccine 2009-09-13 00:00:00 Completed [facility] HPV 2009-09-13 00:00:00 Completed [facility] Influenza Virus Vaccine 2009-09-13 00:00:00 Completed [facility] HPV 2009-09-13 00:00:00 Completed [facility] Influenza Virus Vaccine 2009-09-13 00:00:00 Completed [facility] HPV 2009-09-13 00:00:00 Completed [facility] Influenza Virus Vaccine 2009-09-13 00:00:00 Completed [facility] HPV 2009-09-13 00:00:00 Completed [facility] Influenza Virus Vaccine 2009-09-13 00:00:00 Completed [facility] DTAP 2008-09-10 00:00:00 Completed [facility] HEPATITIS A 2008-09-10 00:00:00 Completed [facility] Meningococcal Polysaccharide (groups A, C, Y and W-135) conjugate vaccine (MCV4P) 2008-09-10 00:00:00 Completed [facility] DTAP 2008-09-10 00:00:00 Completed [facility] HEPATITIS A 2008-09-10 00:00:00 Completed [facility] Meningococcal Polysaccharide (groups A, C, Y and W-135) conjugate vaccine (MCV4P) 2008-09-10 00:00:00 Completed [facility] DTAP 2008-09-10 00:00:00 Completed [facility] HEPATITIS A 2008-09-10 00:00:00 Completed [facility] Meningococcal Polysaccharide (groups A, C, Y and W-135) conjugate vaccine (MCV4P) 2008-09-10 00:00:00 Completed [facility] DTAP 2008-09-10 00:00:00 Completed [facility] HEPATITIS A 2008-09-10 00:00:00 Completed [facility] Meningococcal Polysaccharide (groups A, C, Y and W-135) conjugate vaccine (MCV4P) 2008-09-10 00:00:00 Completed [facility] DTAP 2008-09-10 00:00:00 Completed [facility] HEPATITIS A 2008-09-10 00:00:00 Completed [facility] Meningococcal Polysaccharide (groups A, C, Y and W-135) conjugate vaccine (MCV4P) 2008-09-10 00:00:00 Completed [facility] DTAP 2008-09-10 00:00:00 Completed [facility] HEPATITIS A 2008-09-10 00:00:00 Completed [facility] Meningococcal Polysaccharide (groups A, C, Y and W-135) conjugate vaccine (MCV4P) 2008-09-10 00:00:00 Completed [facility] DTAP 2008-09-10 00:00:00 Completed [facility] HEPATITIS A 2008-09-10 00:00:00 Completed [facility] Meningococcal Polysaccharide (groups A, C, Y and W-135) conjugate vaccine (MCV4P) 2008-09-10 00:00:00 Completed [facility] HEPATITIS A 2007-08-28 00:00:00 Completed [facility] Influenza Virus Vaccine 2007-08-28 00:00:00 Completed [facility] Varicella (varivax)(chicken pox) 2007-08-28 00:00:00 Completed [facility] HEPATITIS A 2007-08-28 00:00:00 Completed [facility] Influenza Virus Vaccine 2007-08-28 00:00:00 Completed [facility] Varicella (varivax)(chicken pox) 2007-08-28 00:00:00 Completed [facility] HEPATITIS A 2007-08-28 00:00:00 Completed [facility] Influenza Virus Vaccine 2007-08-28 00:00:00 Completed [facility] Varicella (varivax)(chicken pox) 2007-08-28 00:00:00 Completed [facility] HEPATITIS A 2007-08-28 00:00:00 Completed [facility] Influenza Virus Vaccine 2007-08-28 00:00:00 Completed [facility] Varicella (varivax)(chicken pox) 2007-08-28 00:00:00 Completed [facility] HEPATITIS A 2007-08-28 00:00:00 Completed [facility] Influenza Virus Vaccine 2007-08-28 00:00:00 Completed [facility] Varicella (varivax)(chicken pox) 2007-08-28 00:00:00 Completed [facility] HEPATITIS A 2007-08-28 00:00:00 Completed [facility] Influenza Virus Vaccine 2007-08-28 00:00:00 Completed [facility] Varicella (varivax)(chicken pox) 2007-08-28 00:00:00 Completed [facility] HEPATITIS A 2007-08-28 00:00:00 Completed [facility] Influenza Virus Vaccine 2007-08-28 00:00:00 Completed [facility] Varicella (varivax)(chicken pox) 2007-08-28 00:00:00 Completed [facility] DTAP 2001-08-31 00:00:00 Completed [facility] HIB 4 Dose Schedule 2001-08-31 00:00:00 Completed [facility] Polio (IPV/OPV) 2001-08-31 00:00:00 Completed [facility] DTAP 2001-08-31 00:00:00 Completed [facility] HIB 4 Dose Schedule 2001-08-31 00:00:00 Completed [facility] Polio (IPV/OPV) 2001-08-31 00:00:00 Completed [facility] DTAP 2001-08-31 00:00:00 Completed [facility] HIB 4 Dose Schedule 2001-08-31 00:00:00 Completed [facility] Polio (IPV/OPV) 2001-08-31 00:00:00 Completed [facility] DTAP 2001-08-31 00:00:00 Completed [facility] HIB 4 Dose Schedule 2001-08-31 00:00:00 Completed [facility] Polio (IPV/OPV) 2001-08-31 00:00:00 Completed [facility] DTAP 2001-08-31 00:00:00 Completed [facility] HIB 4 Dose Schedule 2001-08-31 00:00:00 Completed [facility] Polio (IPV/OPV) 2001-08-31 00:00:00 Completed [facility] DTAP 2001-08-31 00:00:00 Completed [facility] HIB 4 Dose Schedule 2001-08-31 00:00:00 Completed [facility] Polio (IPV/OPV) 2001-08-31 00:00:00 Completed [facility] DTAP 2001-08-31 00:00:00 Completed [facility] HIB 4 Dose Schedule 2001-08-31 00:00:00 Completed [facility] Polio (IPV/OPV) 2001-08-31 00:00:00 Completed [facility] DTAP 2001-04-23 00:00:00 Completed [facility] HIB 4 Dose Schedule 2001-04-23 00:00:00 Completed [facility] Polio (IPV/OPV) 2001-04-23 00:00:00 Completed [facility] DTAP 2001-04-23 00:00:00 Completed [facility] HIB 4 Dose Schedule 2001-04-23 00:00:00 Completed [facility] Polio (IPV/OPV) 2001-04-23 00:00:00 Completed [facility] DTAP 2001-04-23 00:00:00 Completed [facility] HIB 4 Dose Schedule 2001-04-23 00:00:00 Completed [facility] Polio (IPV/OPV) 2001-04-23 00:00:00 Completed [facility] DTAP 2001-04-23 00:00:00 Completed [facility] HIB 4 Dose Schedule 2001-04-23 00:00:00 Completed [facility] Polio (IPV/OPV) 2001-04-23 00:00:00 Completed [facility] DTAP 2001-04-23 00:00:00 Completed [facility] HIB 4 Dose Schedule 2001-04-23 00:00:00 Completed [facility] Polio (IPV/OPV) 2001-04-23 00:00:00 Completed [facility] DTAP 2001-04-23 00:00:00 Completed [facility] HIB 4 Dose Schedule 2001-04-23 00:00:00 Completed [facility] Polio (IPV/OPV) 2001-04-23 00:00:00 Completed [facility] DTAP 2001-04-23 00:00:00 Completed [facility] HIB 4 Dose Schedule 2001-04-23 00:00:00 Completed [facility] Polio (IPV/OPV) 2001-04-23 00:00:00 Completed [facility] MMR 1999-08-31 00:00:00 Completed [facility] MMR 1999-08-31 00:00:00 Completed [facility] MMR 1999-08-31 00:00:00 Completed [facility] MMR 1999-08-31 00:00:00 Completed [facility] MMR 1999-08-31 00:00:00 Completed [facility] MMR 1999-08-31 00:00:00 Completed [facility] MMR 1999-08-31 00:00:00 Completed [facility] DTAP 1999-05-02 00:00:00 Completed [facility] HIB 4 Dose Schedule 1999-05-02 00:00:00 Completed [facility] Hep B, Adol or Pedi Dosage 1999-05-02 00:00:00 Completed [facility] Polio (IPV/OPV) 1999-05-02 00:00:00 Completed [facility] DTAP 1999-05-02 00:00:00 Completed [facility] HIB 4 Dose Schedule 1999-05-02 00:00:00 Completed [facility] Hep B, Adol or Pedi Dosage 1999-05-02 00:00:00 Completed [facility] Polio (IPV/OPV) 1999-05-02 00:00:00 Completed [facility] DTAP 1999-05-02 00:00:00 Completed [facility] HIB 4 Dose Schedule 1999-05-02 00:00:00 Completed [facility] Hep B, Adol or Pedi Dosage 1999-05-02 00:00:00 Completed [facility] Polio (IPV/OPV) 1999-05-02 00:00:00 Completed [facility] DTAP 1999-05-02 00:00:00 Completed [facility] HIB 4 Dose Schedule 1999-05-02 00:00:00 Completed [facility] Hep B, Adol or Pedi Dosage 1999-05-02 00:00:00 Completed [facility] Polio (IPV/OPV) 1999-05-02 00:00:00 Completed [facility] DTAP 1999-05-02 00:00:00 Completed [facility] HIB 4 Dose Schedule 1999-05-02 00:00:00 Completed [facility] Hep B, Adol or Pedi Dosage 1999-05-02 00:00:00 Completed [facility] Polio (IPV/OPV) 1999-05-02 00:00:00 Completed [facility] DTAP 1999-05-02 00:00:00 Completed [facility] HIB 4 Dose Schedule 1999-05-02 00:00:00 Completed [facility] Hep B, Adol or Pedi Dosage 1999-05-02 00:00:00 Completed [facility] Polio (IPV/OPV) 1999-05-02 00:00:00 Completed [facility] DTAP 1999-05-02 00:00:00 Completed [facility] HIB 4 Dose Schedule 1999-05-02 00:00:00 Completed [facility] Hep B, Adol or Pedi Dosage 1999-05-02 00:00:00 Completed [facility] Polio (IPV/OPV) 1999-05-02 00:00:00 Completed [facility] DTAP 1998-12-15 00:00:00 Completed [facility] HIB 4 Dose Schedule 1998-12-15 00:00:00 Completed [facility] Hep B, Adol or Pedi Dosage 1998-12-15 00:00:00 Completed [facility] MMR 1998-12-15 00:00:00 Completed [facility] Polio (IPV/OPV) 1998-12-15 00:00:00 Completed [facility] Varicella (varivax)(chicken pox) 1998-12-15 00:00:00 Completed [facility] DTAP 1998-12-15 00:00:00 Completed [facility] HIB 4 Dose Schedule 1998-12-15 00:00:00 Completed [facility] Hep B, Adol or Pedi Dosage 1998-12-15 00:00:00 Completed [facility] MMR 1998-12-15 00:00:00 Completed [facility] Polio (IPV/OPV) 1998-12-15 00:00:00 Completed [facility] Varicella (varivax)(chicken pox) 1998-12-15 00:00:00 Completed [facility] DTAP 1998-12-15 00:00:00 Completed [facility] HIB 4 Dose Schedule 1998-12-15 00:00:00 Completed [facility] Hep B, Adol or Pedi Dosage 1998-12-15 00:00:00 Completed [facility] MMR 1998-12-15 00:00:00 Completed [facility] Polio (IPV/OPV) 1998-12-15 00:00:00 Completed [facility] Varicella (varivax)(chicken pox) 1998-12-15 00:00:00 Completed [facility] DTAP 1998-12-15 00:00:00 Completed [facility] HIB 4 Dose Schedule 1998-12-15 00:00:00 Completed [facility] Hep B, Adol or Pedi Dosage 1998-12-15 00:00:00 Completed [facility] MMR 1998-12-15 00:00:00 Completed [facility] Polio (IPV/OPV) 1998-12-15 00:00:00 Completed [facility] Varicella (varivax)(chicken pox) 1998-12-15 00:00:00 Completed [facility] DTAP 1998-12-15 00:00:00 Completed [facility] HIB 4 Dose Schedule 1998-12-15 00:00:00 Completed [facility] Hep B, Adol or Pedi Dosage 1998-12-15 00:00:00 Completed [facility] MMR 1998-12-15 00:00:00 Completed [facility] Polio (IPV/OPV) 1998-12-15 00:00:00 Completed [facility] Varicella (varivax)(chicken pox) 1998-12-15 00:00:00 Completed [facility] DTAP 1998-12-15 00:00:00 Completed [facility] HIB 4 Dose Schedule 1998-12-15 00:00:00 Completed [facility] Hep B, Adol or Pedi Dosage 1998-12-15 00:00:00 Completed [facility] MMR 1998-12-15 00:00:00 Completed [facility] Polio (IPV/OPV) 1998-12-15 00:00:00 Completed [facility] Varicella (varivax)(chicken pox) 1998-12-15 00:00:00 Completed [facility] DTAP 1998-12-15 00:00:00 Completed [facility] HIB 4 Dose Schedule 1998-12-15 00:00:00 Completed [facility] Hep B, Adol or Pedi Dosage 1998-12-15 00:00:00 Completed [facility] MMR 1998-12-15 00:00:00 Completed [facility] Polio (IPV/OPV) 1998-12-15 00:00:00 Completed [facility] Varicella (varivax)(chicken pox) 1998-12-15 00:00:00 Completed [facility] DTAP 1997 00:00:00 Completed [facility] Hep B, Adol or Pedi Dosage 1997 00:00:00 Completed [facility] Polio (IPV/OPV) 1997 00:00:00 Completed [facility] DTAP 1997 00:00:00 Completed [facility] Hep B, Adol or Pedi Dosage 1997 00:00:00 Completed [facility] Polio (IPV/OPV) 1997 00:00:00 Completed [facility] DTAP 1997 00:00:00 Completed [facility] Hep B, Adol or Pedi Dosage 1997 00:00:00 Completed [facility] Polio (IPV/OPV) 1997 00:00:00 Completed [facility] DTAP 1997 00:00:00 Completed [facility] Hep B, Adol or Pedi Dosage 1997 00:00:00 Completed [facility] Polio (IPV/OPV) 1997 00:00:00 Completed [facility] DTAP 1997 00:00:00 Completed [facility] Hep B, Adol or Pedi Dosage 1997 00:00:00 Completed [facility] Polio (IPV/OPV) 1997 00:00:00 Completed [facility] DTAP 1997 00:00:00 Completed [facility] Hep B, Adol or Pedi Dosage 1997 00:00:00 Completed [facility] Polio (IPV/OPV) 1997 00:00:00 Completed [facility] DTAP 1997 00:00:00 Completed [facility] Hep B, Adol or Pedi Dosage 1997 00:00:00 Completed [facility] Polio (IPV/OPV) 1997 00:00:00 Completed [facility] Hep B, Adol or Pedi Dosage 1997 00:00:00 Completed [facility] Hep B, Adol or Pedi Dosage 1997 00:00:00 Completed [facility] Hep B, Adol or Pedi Dosage 1997 00:00:00 Completed [facility] Hep B, Adol or Pedi Dosage 1997 00:00:00 Completed [facility] Hep B, Adol or Pedi Dosage 1997 00:00:00 Completed [facility] Hep B, Adol or Pedi Dosage 1997 00:00:00 Completed [facility] Hep B, Adol or Pedi Dosage 1997 00:00:00 Completed [facility] DTAP Unknown Completed [facility] HIB 4 Dose Schedule Unknown Completed [facility] HEPATITIS A Unknown Completed [facility] Hep B, Adol or Pedi Dosage Unknown Completed [facility] HPV Unknown Completed [facility] Influenza Virus Vaccine Unknown Completed [facility] Meningococcal Polysaccharide (groups A, C, Y and W-135) conjugate vaccine (MCV4P) Unknown Completed [facility] MMR Unknown Completed [facility] Polio (IPV/OPV) Unknown [facility] Varicella (varivax)(chicken pox) Unknown Completed [facility] PPD (TB) Unknown Completed [facility] TDAP Unknown Completed [facility] DTAP Unknown Completed [facility] HIB 4 Dose Schedule Unknown Completed [facility] HEPATITIS A Unknown Completed [facility] Hep B, Adol or Pedi Dosage Unknown Completed [facility] HPV Unknown Completed [facility] Influenza Virus Vaccine Unknown Completed [facility] Meningococcal Polysaccharide (groups A, C, Y and W-135) conjugate vaccine (MCV4P) Unknown Completed [facility] MMR Unknown Completed [facility] Polio (IPV/OPV) Unknown Completed [facility] Varicella (varivax)(chicken pox) Unknown Completed [facility] PPD (TB) Unknown Completed [facility] TDAP Unknown Completed [facility] DTAP Unknown Completed [facility] HIB 4 Dose Schedule Unknown Completed [facility] HEPATITIS A Unknown Completed [facility] Hep B, Adol or Pedi Dosage Unknown Completed [facility] HPV Unknown Completed [facility] Influenza Virus Vaccine Unknown Completed [facility] Meningococcal Polysaccharide (groups A, C, Y and W-135) conjugate vaccine (MCV4P) Unknown Completed [facility] MMR Unknown Completed [facility] Polio (IPV/OPV) Unknown Completed [facility] Varicella (varivax)(chicken pox) Unknown Completed [facility] PPD (TB) Unknown Completed [facility] TDAP Unknown Completed [facility] DTAP Unknown Completed [facility] HIB 4 Dose Schedule Unknown Completed [facility] HEPATITIS A Unknown Completed [facility] Hep B, Adol or Pedi Dosage Unknown Completed [facility] HPV Unknown Completed [facility] Influenza Virus Vaccine Unknown Completed [facility] Meningococcal Polysaccharide (groups A, C, Y and W-135) conjugate vaccine (MCV4P) Unknown Completed [facility] MMR Unknown Completed [facility] Polio (IPV/OPV) Unknown [facility] Varicella (varivax)(chicken pox) Unknown Completed [facility] PPD (TB) Unknown Completed [facility] TDAP Unknown Completed [facility] Meningococcal Polysaccharide (groups A, C, Y and W-135) conjugate vaccine (MCV4P) Unknown Completed [facility] PPD (TB) Unknown Completed [facility] TDAP Unknown Completed [facility] DTAP Unknown Completed [facility] HIB 4 Dose Schedule Unknown Completed [facility] HEPATITIS A Unknown Completed [facility] Hep B, Adol or Pedi Dosage Unknown Completed [facility] HPV Unknown Completed [facility] Influenza Virus Vaccine Unknown Completed [facility] MMR Unknown Completed [facility] Polio (IPV/OPV) Unknown Completed [facility] Varicella (varivax)(chicken pox) Unknown Completed [facility] TDAP Unknown Completed [facility] DTAP Unknown Completed [facility] HIB 4 Dose Schedule Unknown Completed [facility] HEPATITIS A Unknown Completed [facility] Hep B, Adol or Pedi Dosage Unknown Completed [facility] HPV Unknown Completed [facility] Influenza Virus Vaccine Unknown Completed [facility] Meningococcal Polysaccharide (groups A, C, Y and W-135) conjugate vaccine (MCV4P) Unknown Completed [facility] MMR Unknown Completed [facility] Polio (IPV/OPV) Unknown Completed [facility] Varicella (varivax)(chicken pox) Unknown Completed [facility] PPD (TB) Unknown Completed [facility] TDAP Unknown Completed [facility] DTAP Unknown Completed [facility] HIB 4 Dose Schedule Unknown Completed [facility] HEPATITIS A Unknown Completed [facility] Hep B, Adol or Pedi Dosage Unknown Completed [facility] HPV Unknown Completed [facility] Influenza Virus Vaccine Unknown Completed [facility] Meningococcal Polysaccharide (groups A, C, Y and W-135) conjugate vaccine (MCV4P) Unknown Completed [facility] MMR Unknown Completed [facility] Polio (IPV/OPV) Unknown Completed [facility] Varicella (varivax)(chicken pox) Unknown Completed [facility] PPD (TB) Unknown Completed [facility] TDAP Unknown Completed [facility] DTAP Unknown Completed [facility] HIB 4 Dose Schedule Unknown Completed [facility] HEPATITIS A Unknown Completed [facility] Hep B, Adol or Pedi Dosage Unknown Completed [facility] HPV Unknown Completed [facility] Influenza Virus Vaccine Unknown Completed [facility] Meningococcal Polysaccharide (groups A, C, Y and W-135) conjugate vaccine (MCV4P) Unknown Completed [facility] MMR Unknown Completed [facility] Polio (IPV/OPV) Unknown [facility] Varicella (varivax)(chicken pox) Unknown Completed [facility] PPD (TB) Unknown Completed [facility] TDAP Unknown Completed [facility] DTAP Unknown Completed [facility] HIB 4 Dose Schedule Unknown Completed [facility] HEPATITIS A Unknown Completed [facility] Hep B, Adol or Pedi Dosage Unknown Completed [facility] HPV Unknown Completed [facility] Influenza Virus Vaccine Unknown Completed [facility] Meningococcal Polysaccharide (groups A, C, Y and W-135) conjugate vaccine (MCV4P) Unknown Completed [facility] MMR Unknown Completed [facility] Polio (IPV/OPV) Unknown Completed [facility] Varicella (varivax)(chicken pox) Unknown Completed [facility] PPD (TB) Unknown Completed [facility] TDAP Unknown Completed [facility] DTAP Unknown Completed [facility] HIB 4 Dose Schedule Unknown Completed [facility] HEPATITIS A Unknown Completed [facility] Hep B, Adol or Pedi Dosage Unknown Completed [facility] HPV Unknown Completed [facility] Influenza Virus Vaccine Unknown Completed [facility] Meningococcal Polysaccharide (groups A, C, Y and W-135) conjugate vaccine (MCV4P) Unknown Completed [facility] MMR Unknown Completed [facility] Polio (IPV/OPV) Unknown [facility] Varicella (varivax)(chicken pox) Unknown Completed [facility] PPD (TB) Unknown Completed [facility] TDAP Unknown Completed [facility] DTAP Unknown Completed [facility] HIB 4 Dose Schedule Unknown Completed [facility] HEPATITIS A Unknown Completed [facility] Hep B, Adol or Pedi Dosage Unknown Completed [facility] HPV Unknown Completed [facility] Influenza Virus Vaccine Unknown Completed [facility] Meningococcal Polysaccharide (groups A, C, Y and W-135) conjugate vaccine (MCV4P) Unknown Completed [facility] MMR Unknown Completed [facility] Polio (IPV/OPV) Unknown Completed [facility] Varicella (varivax)(chicken pox) Unknown Completed [facility] PPD (TB) Unknown Completed [facility] Vital Signs Vital Name Observation Time Observation Value Comments S our Height 2024-12-17 18:49:00 165.161423 cm [facility] Weight 2024-12-17 18:49:00 104.396743 kg [facility] BMI (Body Mass Index) 2024-12-17 18:49:00 38.3 kg/m2 [facility] Systolic blood pressure 2024-03-29 22:25:00 125 mm[Hg] [facility] Diastolic blood pressure 2024-03-29 22:25:00 76 mm[Hg] [facility] Heart rate 2024-03-29 22:25:00 73 /min [facility] Body temperature 2024-03-29 22:25:00 37.17 Jul[place]eta [facility] Respiratory rate 2024-03-29 22:25:00 16 /min [facility] Oxygen saturation in Arterial blood by Pulse oximetry 2024-03-29 22:25:00 100 /min [facility] Body height 2024-03-29 19:17:00 165.1 cm [facility] Body weight 2024-03-29 19:17:00 104.327 kg [facility] BMI 2024-03-29 19:17:00 38.27 kg/m2 [facility] Systolic blood pressure 2023-09-03 16:05:00 114 mm[Hg] [facility] Diastolic blood pressure 2023-09-03 16:05:00 71 mm[Hg] [facility] Heart rate 2023-09-03 16:05:00 90 /min [facility] Body height 2023-09-03 16:05:00 165.1 cm [facility] Body weight 2023-09-03 16:05:00 116.121 kg [facility] BMI 2023-09-03 16:05:00 42.60 kg/m2 [facility] Oxygen saturation in Arterial blood by Pulse oximetry 2023-09-03 16:05:00 100 /min [facility] Systolic blood pressure 2023-06-22 20:32:00 121 mm[Hg] [facility] Diastolic blood pressure 2023-06-22 20:32:00 84 mm[Hg] [facility] Heart rate 2023-06-22 20:32:00 91 /min Un[facility] Body height 2023-06-22 20:32:00 165.1 cm [facility] Body weight 2023-06-22 20:32:00 108.364 kg [facility] BMI 2023-06-22 20:32:00 39.76 kg/m2 [facility] Oxygen saturation in Arterial blood by Pulse oximetry 2023-06-22 20:32:00 99 /min [facility] Systolic blood pressure 2022-05-18 12:47:00 131 mm[Hg] [facility] Diastolic blood pressure 2022-05-18 12:47:00 73 mm[Hg] [facility] Heart rate 2022-05-18 12:47:00 81 /min [facility] Body temperature 2022-05-18 12:47:00 36.11 Julieta [facility] Respiratory rate 2022-05-18 12:47:00 16 /min [facility] Oxygen saturation in Arterial blood by Pulse oximetry 2022-05-18 12:47:00 100 /min [facility] Body height 2022-05-16 09:53:00 167.6 cm [facility] Body weight 2022-05-16 09:53:00 114.397 kg [facility] BMI 2022-05-16 09:53:00 40.71 kg/m2 [facility] Height 2021-07-14 00:00:00 65 [in_i] Vincenzo villa [facility] BMI (Body Mass Index) 2021-07-14 00:00:00 38.3 kg/m2 Lindsey [facility] Body Weight 2021-07-14 00:00:00 230 [lb_av] Sundeep dejesusrdtheresa [facility] BP Diastolic 2019-11-11 00:00:00 87 mm[Hg] Sundeep dejesusrdtheresa [facility] Height 2019-11-11 00:00:00 65 [in_i] Vincenzo villa [facility] BMI (Body Mass Index) 2019-11-11 00:00:00 30.8 kg/m2 Douglas [facility] BP Systolic 2019-11-11 00:00:00 146 mm[Hg] Darshan macdonald [facility] Body Weight 2019-11-11 00:00:00 185 [lb_av] Sundeep ortega [facility] BP Systolic 2022-04-10 11:35:00 119 mm[Hg] BP Diastolic 2022-04-10 11:35:00 77 mm[Hg] Weight Measured 2022-04-10 11:35:00 245.00 pounds Height Measured 2022-04-10 11:35:00 65.00 inches Body Temperature 2022-04-10 11:35:00 98.10 degrees Heart Rate 2022-04-10 11:35:00 96.00 /min Respiratory Rate 2022-04-10 11:35:00 18.00 /min BP Systolic 2022-03-28 14:41:00 118 mm[Hg] BP Diastolic 2022-03-28 14:41:00 76 mm[Hg] Weight Measured 2022-03-28 14:41:00 243.00 pounds Height Measured 2022-03-28 14:41:00 65.00 inches Body Temperature 2022-03-28 14:41:00 98.30 degrees Heart Rate 2022-03-28 14:41:00 108.00 /min Respiratory Rate 2022-03-28 14:41:00 18.00 /min Procedures Procedure Date / Time Performed Performing Clinicia n Source CT ANGIOGRAM ABDOMEN/PELVIS 2024-03-29 21:27:48 Elise Irby [facility] POCT TEST 2024-03-29 19:46:00 Silke Irby [facility] LIPASE 2024-03-29 19:44:00 Elise Irby [facility] COMP. METABOLIC PANEL (89047) 2024-03-29 19:44:00 Elise Irby [facility] CBC WITH DIFF 2024-03-29 19:44:00 Elise Irby [facility] URINALYSIS 2024-03-29 19:44:00 [facility] XR SCOLIOSIS SURVEY 2 VW 2023-09-03 17:47:[facility] 2023-06-29 14:33:00 Lindy Blair [facility] ASSIGNMENT OF BENEFITS 2023-06-22 20:24:02 Docto r Unassigned, [place] [facility] EXTERNAL PROVIDER RECORDS 2022-05-22 05:01:00 Doctor Unassigned, [place] [facility] CBC WITH DIFF 2022-05-17 09:41:00 Adum, [facility] EXTERNAL PROVIDER RECORDS 2022-05-17 05:01:00 Doctor Unassigned, [place] [facility] CENTRAL NEURAXIAL BLOCK 2022-05-16 22:11:38 Kimberly Argueta [facility] CENTRAL NEURAXIAL BLOCK 2022-05-16 19:35:58 Stan Pike [facility] CBC WITH DIFF 2022-05-16 10:27:00 Adum, Trinity Agarwal [facility] RUBELLA SCREEN IGG 2022-05-16 10:27:00 Adum, Trinity Alvarez [facility] HEPATITIS B SURFACE ANTIGEN 2022-05-16 10:27:00 Adum, Trinity Alvarez [facility] ADC OR KAMILLA ONLY - RPR 2022-05-16 10:27:00 Adum, Trinity Alvarez [facility] HB ABO GROUPING 2022-05-16 10:20:00 Leyda Trinity Alvarez Disha [facility] HOSPITAL ADMISSION 2022-05-16 05:01:00 Doctor Un assigned, [place] [facility] Plan of Care Planned Activity Planned Date Details Comments Source Diagnostic Test Pending 2021-07-14 00:00:00 CMP, serum or plasma [code = CMP, serum or plasma] [facility] Diagnostic Test Pending 2021-07-14 00:00:00 CBC w/ auto diff [code = CBC w/ auto diff] [facility] Diagnostic Test Pending 2021-07-14 00:00:00 cytology report, thin prep, smear or scraping, cervical or vaginal [code = cytology report, thin prep, smear or scraping, cervical or vaginal] [facility] Diagnostic Test Pending 2021-07-14 00:00:00 HIV 1+2 AB + HIV 1 p24 Ag, qualitative immunoassay, serum [code = HIV 1+2 AB + HIV 1 p24 Ag, qualitative immunoassay, serum] [facility] Diagnostic Test Pending 2021-07-14 00:00:00 HBsAg (hepatitis B surface Ag), EIA, serum [code = HBsAg (hepatitis B surface Ag), EIA, serum] [facility] Diagnostic Test Pending 2021-07-14 00:00:00 RPR (rapid plasma reagin), serum [code = RPR (rapid plasma reagin), serum] [facility] Diagnostic Test Pending 2021-07-14 00:00:00 TSH + free T4, serum [code = TSH + free T4, serum] [facility] Diagnostic Test Pending 2021-07-14 00:00:00 lipid panel, serum [code = lipid panel, serum] [facility] Test Pending 2021-07-14 00:00:00 test, urine [code = test, urine] [facility] Goal Plan of Care Not e [code = 87048-4] Goal Plan of Care Not e [code = 17502-0] Goal Plan of Care Not e [code = 82880-6] Goal Plan of Care Not e [code = 61740-8] Goal Plan of Care Not e [code = 24052-5] Goal Plan of Care Not e [code = 62225-8] Goal Plan of Care Not e [code = 87009-9] Goal Plan of Care Not e [code = 95589-5] Goal Plan of Care Not e [code = 36192-8] Goal Plan of Care Not e [code = 33045-2] Goal Plan of Care Not e [code = 71165-4] Encounters Start Date/Time End Date/Time Encounter Type Admission Type Attending [facility] Facility Care Department Encounter ID Source 2022-08-18 13:58:57 Inpatient [facility] [id number] [facility] 2021-08-01 14:01:22 Outpatient MÓNICA HUNT [facility] [id number] [facility] 2021-08-01 13:27:01 Outpatient MÓNICA HUNT [facility] SOR [id number] [facility] 2021-07-30 15:31:43 Emergency [facility] [id number] [facility] 2024-12-18 18:12:00 2024-12-18 23:13:00 Emergency ELISE QUINTEROS DONNELL [facility] ERT [id number] [facility] 2024-12-17 18:35:00 2024-12-17 23:12:00 Emergency ER RANDA SERGIOJOON [facility] [id number] [facility] 2024-12-17 18:35:00 2024-12-17 23:12:00 Departed Emergency Room [facility] [id number] [facility] 2024-03-29 14:14:00 2024-03-29 17:58:00 Emergency ELISE QUINTEROS DONNELL [facility] ERT [id number] [facility] 2024-03-29 14:14:00 2024-03-29 17:58:00 Emergency Elise Irby [facility] 1.2.840.114 350.1.13.10 4.2.7.2.686 [id number] [facility] 2023-10-11 10:00:00 2023-10-11 10:00:00 [id number] 2023-10-04 10:00:00 2023-10-04 10:00:00 [id number] [facility] 2023-09-03 11:06:01 2023-09-03 23:59:00 Hospital Encounter Zak Blairssica [facility] 1.2.840.114 350.1.13.10 4.2.7.2.686 [id number] [facility] 2023-09-03 10:29:37 2023-09-03 11:05:00 [facility] 1.2840.114 350.1.13.10 4.2.7.2.686 [id number] [facility] 2023-09-03 10:24:36 2023-09-03 10:28:00 Outpatient R LINDY BLAIR [facility] [id number] [facility] 2023-09-03 10:24:36 2023-09-03 10:28:00 [facility] 1.2840.114 350.1.13.10 4.2.7.2.686 [id number] [facility] 2023-09-03 10:24:36 2023-09-03 10:28:00 Hospital Encounter Johnnie [facility] 1.2.840.114 350.1.13.10 4.2.7.2.686 [id number] [facility] 2023-09-03 10:24:35 2023-09-03 10:28:00 [facility] 1.84.114 350.1.13.10 4.2.7.2.686 [id number] [facility] 2023-09-03 10:00:00 2023-09-03 10:23:38 [facility] 1.84.114 350.1.13.10 4.2.7.2.686 [id number] [facility] 2023-07-02 00:00:00 2023-07-02 00:00:00 Telephone Johnnie [facility] 1.84.114 350.1.13.10 4.2.7.2.686 [id number] [facility] 2023-06-29 09:23:21 2023-06-29 23:59:00 Outpatient R LINDY BLAIR [facility] [id number] [facility] 2023-06-29 09:23:21 2023-06-29 23:59:00 Hospital Encounter Lindy Blair [facility] 1.84.114 350.1.13.10 4.2.7.2.686 [id number] [facility] 2023-06-25 14:30:00 2023-06-25 14:30:00 Outpatient R [facility] [id number] [facility] 2023-06-22 15:30:00 2023-06-22 16:30:00 Office Visit Johnnie [facility] 1.84.114 350.1.13.10 4.2.7.2.686 [id number] [facility] 2023-06-22 15:30:00 2023-06-22 15:30:00 Outpatient Sam BLAIRLINDY [facility] [id number] [facility] 2023-06-22 00:00:00 2023-06-22 00:00:00 Orders Only Doctor Unassigned, [place] [facility] 1..840.114 350.1.13.10 4.2.7.2.686 [id number] [facility] 2023-05-25 00:00:00 2023-05-25 00:00:00 Case Management Yasmine Stanley 1.2.840.114 350.1.13.10 4.2.7.2.686 [id number] [facility] 2023-05-01 10:56:45 2023-05-01 10:56:45 Outpatient [facility] [id number] Gualberto Sam 2023-04-16 15:56:20 2023-04-16 15:56:20 Outpatient [facility] [id number] Gualberto Sam 2022-11-06 09:47:54 2022-11-06 09:47:54 Outpatient [facility] [id number] Gualberto Sam 2022-09-12 13:01:07 2022-09-12 13:01:07 Outpatient SFA [facility] Sam 2022-08-19 08:52:10 2022-08-19 08:52:10 Outpatient SFA [facility] Sam 2022-08-18 14:50:25 2022-08-18 14:50:25 Outpatient SFA [facility] Sam 2022-08-18 00:00:00 2022-08-18 00:00:00 Outpatient Visit [id number] 2022-06-07 11:00:00 2022-06-07 11:00:00 Outpatient R TRINITY CRABTREE [facility] [id number] [facility] 2022-05-22 00:00:00 2022-05-22 00:00:00 Orders Only Doctor Unassigned, [place] [facility] 1.2840.114 350.1.13.10 4.2.7.2.686 [id number] [facility] 2022-05-16 04:19:00 2022-05-18 09:10:00 Inpatient P TRINITY CRABTREE [facility] ALEXIS [id number] [facility] 2022-05-16 04:19:00 2022-05-18 09:10:00 Hospital Encounter Trinity Crabtree [facility] 1.2840.114 350.1.13.10 4.2.7.2.686 [id number] [facility] 2022-05-17 07:38:37 2022-05-17 07:38:37 Anesthesia Event Filipe [facility] 1.2.840.114 350.1.13.10 4.2.7.2.686 [id number] [facility] 2022-05-17 07:36:41 2022-05-17 07:36:41 Anesthesia Event Filipe [facility] 1.2.840.114 350.1.13.10 4.2.7.2.686 [id number] [facility] 2022-05-16 13:05:00 2022-05-17 00:18:00 [facility] 1.2840.114 350.1.13.10 4.2.7.2.686 [id number] [facility] 2022-05-16 00:00:00 2022-05-16 00:00:00 Orders Only Doctor Unassigned, [place] [facility] 1.840.114 350.1.13.10 4.2.7.2.686 [id number] [facility] 2022-05-15 15:15:00 2022-05-15 15:30:00 Laboratory Only Only, Adc Test Ad [facility] 1.840.114 350.1.13.10 4.2.7.2.686 [id number] [facility] 2022-05-15 15:15:00 2022-05-15 15:15:00 Outpatient R LEYDA [facility] [id number] [facility] 2022-05-15 15:15:00 2022-05-15 15:15:00 Outpatient R LEYDA [facility] ALEXIS [id number] [facility] 2022-05-15 00:00:00 2022-05-15 00:00:00 Orders Only Doctor Unassigned, [place] [facility] 1.840.114 350..13.10 4.2.7.2.686 [id number] [facility] 2022-05-10 09:45:00 2022-05-10 10:27:38 Outpatient R ADVENKATA [facility] [id number] [facility] 2022-05-10 09:45:00 2022-05-10 10:27:38 Routine Visit Advenkata [facility] 1.840.114 350.1.13.10 4.2.7.2.686 [id number] [facility] 2022-05-10 09:45:00 2022-05-10 09:45:00 Outpatient R ADVENKATA [facility] [id number] [facility] 2022-05-09 09:45:00 2022-05-09 10:00:00 Telecom Manager Visit 2, Adc Lab Trinity Crabtree [facility] 1..840.114 350.1.13.10 4.2.7.2.686 [id number] [facility] 2022-05-09 09:45:00 2022-05-09 09:45:00 [id number] 2022-05-09 09:15:00 2022-05-09 09:15:00 Outpatient R [facility] [id number] [facility] 2022-05-06 00:00:00 2022-05-06 00:00:00 Case Management SteveTrinity pressley [facility] 1.840.114 350.1.13.10 4.2.7.2.686 [id number] [facility] 2022-05-03 09:30:00 2022-05-03 10:04:02 Outpatient HEATHER TAYLOR CHERYAL [facility] [id number] [facility] 2022-05-03 09:30:00 2022-05-03 10:04:02 Routine Visit Trinity Crabtree Cheryal [facility] 1.114 350.1.13.10 4.2.7.2.686 [id number] [facility] 2022-04-27 00:00:00 2022-04-27 00:00:00 Case Management Brittany [facility]c [facility] 1.114 350.1.13.10 4.2.7.2.686 [id number] [facility] 2022-04-26 15:30:00 2022-04-26 16:30:27 Outpatient R HEATHER MOORE CHERYAL [facility] [id number] [facility] 2022-04-26 15:30:00 2022-04-26 16:30:27 Routine Visit Heather Moore [facility] 1.2.840.114 350.1.13.10 4.2.7.2.686 [id number] [facility] 2022-04-26 11:00:00 2022-04-26 11:00:00 Outpatient R LEYDA TRINITY [facility] [id number] [facility] 2022-04-26 00:00:00 2022-04-26 00:00:00 Orders Only Doctor Unassigned, [place] [facility] 1.2.840.114 350.1.13.10 4.2.7.2.686 [id number] [facility] 2022-04-26 00:00:00 2022-04-26 00:00:00 [facility] 1.2.840.114 350.1.13.10 4.2.7.2.686 [id number] [facility] 2022-04-24 09:00:00 2022-04-24 09:15:00 Telecom Manager Visit 2, Adc Lab AdTrinity pressley [facility] 1.2840.114 350.1.13.10 4.2.7.2.686 [id number] [facility] 2022-04-24 09:00:00 2022-04-24 09:00:00 Outpatient R TRINITY CRABTREE [facility] [id number] [facility] 2022-04-24 00:00:00 2022-04-24 00:00:00 Telephone AdTrinity pressley [facility] 1.2.840.114 350.1.13.10 4.2.7.2.686 [id number] [facility] 2022-04-21 13:00:00 2022-04-21 13:05:39 Outpatient TRNIITY GONZALEZ [facility] [id number] [facility] 2022-04-21 13:00:00 2022-04-21 13:05:39 Initial Visit Yin Morales Vivian L [facility] 1..840.114 350.1.13.10 4.2.7.2.686 [id number] [facility] 2022-04-21 13:00:00 2022-04-21 13:05:39 Outpatient Sam TRINITY CRABTREE [facility] [id number] [facility] 2022-04-21 00:00:00 2022-04-21 00:00:00 Telephone Yin Morales [facility] ..840.114 350.1.13.10 4.2.7.2.686 [id number] [facility] 2022-01-02 12:25:00 2022-01-02 12:25:00 Outpatient LISTER_MELI [facility] 2022-01-02 12:25:00 2022-01-02 12:25:00 Outpatient LISTER_MELI [facility] 2022-01-02 12:25:00 2022-01-02 12:25:00 Outpatient LISTER_MELI [facility] 2022-01-02 12:08:00 2022-01-02 12:08:00 Outpatient White_M [id number] [facility] 2021-12-08 09:30:00 2021-12-08 09:30:00 Outpatient R ARMANDO LOPEZ [facility] [id number] [facility] 2021-07-20 04:57:00 2021-07-20 04:57:00 Outpatient KATIE_JUAQUINI [facility] [id number] [facility] 2021-07-14 05:36:00 2021-07-14 05:36:00 Outpatient LISTER_JUAQUINI [facility] [id number] [facility] 2021-07-14 00:00:00 2021-07-14 00:00:00 Annamaria Woods, B[employer] BOX BUILDER: [address], [place] [address] , Ph. [facility] H[facility] - [facility] QUARTER INSPECTOR [id number] [facility] 2021-06-22 13:30:00 2021-06-22 13:30:00 Outpatient R HI NUNEZ [facility] [id number] [facility] 2021-06-01 14:05:00 2021-06-01 23:59:00 Outpatient R MÓNICA MARQUEZ [facility] [id number] [facility] 2021-06-01 14:05:00 2021-06-01 23:59:00 Hospital Encounter Mónica Marquez [facility] 1.2.840.114 350.1.13.10 4.2.7.2.686 [id number] [facility] 2021-06-01 13:45:52 2021-06-01 14:00:52 Office Visit Hi Nunez Craig [facility] 1.2.840.114 350.1.13.10 4.2.7.2.686 [id number] [facility] 2021-06-01 00:00:00 2021-06-01 00:00:00 Letter (Out) Mónica Marquez [facility] Fernandez?Sanchez coy [facility] 1.2840.114 350.1.13.10 4.2.7.2.686 [id number] [facility] 2021-05-18 16:54:53 2021-05-18 23:59:00 Outpatient HI FONTAINE [facility] [id number] [facility] 2021-05-18 00:00:00 2021-05-18 00:00:00 Telephone Mónica Marquez [facility] 1.2840.114 350.1.13.10 4.2.7.2.686 [id number] [facility] 2021-05-18 00:00:00 2021-05-18 00:00:00 Telephone Mónica Marquez [facility] 1.2840.114 350.1.13.10 4.2.7.2.686 [id number] [facility] 2021-05-12 00:00:00 2021-05-12 00:00:00 Orders Only Doctor Unassigned, [place] [facility] 1.2840.114 350.1.13.10 4.2.7.2.686 [id number] [facility] 2021-05-11 00:00:00 2021-05-11 00:00:00 Telephone Zan [facility] 1.2.840.114 350.1.13.10 4.2.7.2.686 [id number] [facility] 2021-05-11 00:00:00 2021-05-11 00:00:00 Letter (Out) Doctor Unassigned, [place] [facility] 1.2840.114 350.1.13.10 4.2.7.2.686 [id number] [facility] 2021-05-11 00:00:00 2021-05-11 00:00:00 Letter (Out) Doctor Unassigned, [place] [facility] 1.2840.114 350.1.13.10 4.2.7.2.686 [id number] [facility] 2021-05-09 09:02:00 2021-05-09 14:24:00 Hospital Encounter Mónica Marquez [facility] 1.2840.114 350.1.13.10 4.2.7.2.686 [id number] [facility] 2021-05-09 11:15:00 2021-05-09 13:23:00 Surgery Mónica Marquez [facility] 1.2840.114 350.1.13.10 4.2.7.2.686 [id number] [facility] 2021-05-06 14:54:34 2021-05-06 15:09:34 Laboratory Only Only, Adc Test Mónica Marquez [facility] 1.2840.114 350.1.13.10 4.2.7.2.686 [id number] [facility] 2021-05-06 14:53:39 2021-05-06 15:08:39 Telecom Manager Visit Pob, Adc Lab Main Mónica Marquez [facility] 1.2840.114 350.1.13.10 4.2.7.2.686 [id number] [facility] 2021-05-06 11:45:00 2021-05-06 11:45:00 Outpatient R ALEX MARQUEZIG [facility] [id number] [facility] 2021-05-06 00:00:00 2021-05-06 00:00:00 Orders Only Doctor Unassigned, [place] [facility] 1.2.840.114 350.1.13.10 4.2.7.2.686 [id number] [facility] 2021-05-05 00:00:00 2021-05-05 00:00:00 Telephone [facility] 1.2.840.114 350.1.13.10 4.2.7.2.686 [id number] [facility] 2021-05-04 14:39:38 2021-05-04 23:59:00 Outpatient R MÓNICA MARQUEZ [facility] [id number] [facility] 2021-05-04 14:39:38 2021-05-04 23:59:00 Hospital Encounter Mónica Marquez [facility] [place] 1.2.840.114 350.1.13.10 4.2.7.2.686 [id number] [facility] 2021-05-04 14:14:56 2021-05-04 15:19:21 Office Visit Mónica Marquez [facility] [place] 1.2.840.114 350.1.13.10 4.2.7.2.686 [id number] [facility] 2021-05-04 00:00:00 2021-05-04 00:00:00 Prep For Surgery Mónica Marquez [facility] [place] 1.2.840.114 350.1.13.10 4.2.7.2.686 [id number] [facility] 2021-04-28 00:00:00 2021-04-28 00:00:00 Orders Only Doctor Unassigned, [place] [facility] 1.2.840.114 350.1.13.10 4.2.7.2.686 [id number] [facility] 2020-10-06 16:25:00 2020-10-06 20:28:00 Emergency [facility] 1.2.840.114 350.1.13.10 4.2.7.2.686 [id number] [facility] 2020-10-06 16:25:00 2020-10-06 20:28:00 Emergency [facility] 1.2.840.114 350.1.13.10 4.2.7.2.686 [id number] 2020-10-06 00:00:00 2020-10-06 00:00:00 Orders Only Doctor Unassigned, [place] [facility] 1.2.840.114 350.1.13.10 4.2.7.2.686 [id number] [facility] 2020-10-06 00:00:00 2020-10-06 00:00:00 Orders Only Doctor Unassigned, [place] [facility] 1.2.840.114 350.1.13.10 4.2.7.2.686 [id number] 2019-11-11 05:43:00 2019-11-11 05:43:00 Outpatient [facility] [id number] [facility] [facility] 2019-11-11 00:00:00 2019-11-11 00:00:00 Annamaria Woods, BINDER AND BOX BUILDER: [address], [place] [address] , Ph. [facility] QUARTER INSPECTOR [id number] [facility] 2019-11-10 04:35:00 2019-11-10 04:35:00 Outpatient [facility]PA [facility] [id number] [facility] 2019-04-17 00:00:00 2019-04-17 00:00:00 Orders Only Doctor Unassigned, [place] [id number] [facility] 2019-04-17 00:00:00 2019-04-17 00:00:00 Orders Only Doctor Unassigned, [place] [facility] [id number] Results Test Description Test Time Test Comments Results Result Co mments Source [facility] CtrCalcium rkmve2288-24-51 19:40:00* Test Item Value Reference Range Interpretation Comme nts Calcium Level (test code = 42157841) 9.6 [facility] CtrGlobulin rpy1555-86-54 19:40:00* Test Item Value Reference Range Interpretation Comme nts Globulin (test code = 584400582) 3.3 [facility] CtrALT (SGPT) ser/njbo3943-35-49 19:40:00* Test Item Value Reference Range Interpretation Comme nts Alanine Aminotransferase (AL T/SGPT) (test code = 1742-6) 99 [facility] LuaQwrrnj2753-75-64 19:40:00* Test Item Value Reference Range Interpretation Comme nts Lipase (test code = 003541269) 52 [facility] CtrALP ser/hjcm1047-38-31 19:40:00* Test Item Value Reference Range Interpretation Comme nts Total Alkaline Phosphatase ( test code = 6768-6) 118 [facility] CtrBilirubin axyaa5359-63-89 19:40:00* Test Item Value Reference Range Interpretation Comme nts Total Bilirubin (test code = LJW3543) 0.3 [facility] CtrSerum or plasma urea nitrogen measurement (mass/volume)2024-12-17 19:40:00* Test Item Value Reference Range Interpretation Comme nts Blood Urea Nitrogen (test co de = 3094-0) 11 [facility] XnmQML4908-46-09 19:40:00* Test Item Value Reference Range Interpretation Comme nts Aspartate Amino Transf (AST/ SGOT) (test code = JEX3566) 48 [facility] CtrCreatinine sjjjx4574-66-30 19:40:00* Test Item Value Reference Range Interpretation Comme nts Creatinine (test code = 182214510) 0.82 [facility] CtrEstimated glomerular filtration rate (GFR) jfdlhayydrbrs3004-62-10 19:40:00* Test Item Value Reference Range Interpretation Comme [facility] Glomerular Filtration Rate C alc (test code = 235818645) > 60.00 [facility] CtrBUN/creatinine cerxn3099-87-91 19:40:00* Test Item Value Reference Range Interpretation Comme nts BUN/Creatinine Ratio (test c ode = 54787450) 13.4 [facility] CtrBody fluid potassium xtdkbuusozw3918-77-61 19:40:00* Test Item Value Reference Range Interpretation Comme nts Potassium Level (test code = 2821-7) 4.1 [facility] DvrSN66985-13-65 19:40:00* Test Item Value Reference Range Interpretation Comme nts Carbon Dioxide Level (test c ode = 39347774) 23 [facility] CtrAnion gap knnoblegrap9733-99-64 19:40:00* Test Item Value Reference Range Interpretation Comme nts Anion Gap (test code = 79795314) 16.1 [facility] CtrUrine bmtzllv5408-96-33 19:36:00* Test Item Value Reference Range Interpretation Comme nts Urine Culture (test code = 630-4) SPECIMEN HAS BEEN RECEIVED IN LAB AND IS IN PROGRESS. [facility] CtrUrine leukocyte esterase ogdpvxasw4247-17-64 19:35:00* Test Item Value Reference Range Interpretation Comme [facility] Urine Leukocyte Esterase (te st code = 437360-5) 2+ [facility] CtrRBC count ur vejo0021-48-18 19:34:00* Test Item Value Reference Range Interpretation Comme [facility] Urine RBC (test code = 798-9) 51-100 [facility] CtrUrine examination for white blood cells (WBC) 2024-12-17 19:34:00* Test Item Value Reference Range Interpretation Comme [facility] Urine WBC (test code = 763498041) >100 [facility] CtrAutomated epithelial cells count in urine sediment (number/area)2024-12-17 19:34:00* Test Item Value Reference Range Interpretation Comme nts Urine Epithelial Cells (test code = 56572-1) 0-2 [facility] CtrBacteria detection in urine sediment by light cejozhossq0063-03-39 19:34:00* Test Item Value Reference Range Interpretation Comme nts Urine Bacteria (test code = 56389-5) Large [facility] CtrUrine casts detection by automated method 2024-12-17 19:34:00* Test Item Value Reference Range Interpretation Comme nts Urine Casts (test code = 20202-0) 0-2 [facility] CtrHCG ur [id number] 19:30:00* Test Item Value Reference Range Interpretation Comme nts Urine HCG, Qualitative (test code = 2106-3) POSITIVE [facility] CtrColor of Urine by Avui0280-33-77 19:29:00* Test Item Value Reference Range Interpretation Comme nts Urine Color (test code = 18004-3) Yellow [facility] CtrAppearance of Jynkz4316-36-92 19:29:00* Test Item Value Reference Range Interpretation Comme nts Urine Appearance (test code = 5767-9) Cloudy [facility] glucose xoltudlqa3833-03-13 19:29:00* Test Item Value Reference Range Interpretation Comme nts Urine Glucose (UA) (test cod e = 2349-9) Negative [facility] CtrBilirubin ho9492-35-35 19:29:00* Test Item Value Reference Range Interpretation Comme nts Urine Bilirubin (test code = 226944131) Negative [facility] CtrKetones ou2854-48-62 19:29:00* Test Item Value Reference Range Interpretation Comme nts Urine Ketones (test code = 55369909) Negative [facility] CtrSpecific gravity of Urine by Automated test strip 2024-12-17 19:29:00* Test Item Value Reference Range Interpretation Comme nts Urine Specific Ramer (test code = 13841-6) 1.020 [facility] ChildrenU[facility] blood obfjdgowz0518-98-09 19:29:00* Test Item Value Reference Range Interpretation Comme nts Urine Blood (test code = 020277-3) 2+ (MODERATE) [facility] CtrpH sm8100-28-08 19:29:00* Test Item Value Reference Range Interpretation Comme [facility] Urine pH (test code = 2756-5) 6.500 [facility] CtrProtein fy4318-13-84 19:29:00* Test Item Value Reference Range Interpretation Comme [facility] Urine Protein (test code = 39324468) 2+ [facility] CtrUrobilinogen, urine, xq9543-20-25 19:29:00* Test Item Value Reference Range Interpretation Comme [facility] Urine Urobilinogen (test cod e = 618493235) 1.0 [facility] CtrUrine nitrate vtqxbiyyr8189-45-40 19:29:00* Test Item Value Reference Range Interpretation Comme [facility] Urine Nitrate (test code = 42477-2) Positive [facility] CtrAbsolute eosinophil yzzoz1519-60-77 19:24:00* Test Item Value Reference Range Interpretation Comme [facility] Eosinophils # (Auto) (test c ode = OWX9343) 0.20 [facility] CtrRBC oemwo2421-90-11 19:24:00* Test Item Value Reference Range Interpretation Comme [facility] Red Blood Count (test code = 07620381) 4.19 [facility] QgpXelqqdbdtx3785-89-32 19:24:00* Test Item Value Reference Range Interpretation Comme [facility] Hematocrit (test code = 63842367) 38.0 [facility] CtrMCV (mean corpuscular volume) determination 2024-12-17 19:24:00* Test Item Value Reference Range Interpretation Comme [facility] Mean Corpuscular Volume (bandar t code = 37413-3) 90.7 [facility] CtrMean corpuscular hemoglobin (MCH) determination 2024-12-17 19:24:00* Test Item Value Reference Range Interpretation Comme [facility] Mean Corpuscular Hemoglobin (test code = 11814679) 30.3 [facility] ChildrenMean corpuscular hemoglobin concentration (MCHC) lqrfgwkdtbmcp9377-47-77 19:24:00* Test Item Value Reference Range Interpretation Comme [facility] Mean Corpuscular Hemoglobin Concent (test code = 20826625) 33.4 [facility] CtrRBC distribution width coefficient of variation 2024-12-17 19:24:00* Test Item Value Reference Range Interpretation Comme [facility] Red Cell Distribution Width (test code = 75749840) 13.8 [facility] CtrPlatelet bbyrb7551-07-93 19:24:00* Test Item Value Reference Range Interpretation Comme [facility] Platelet Count (test code = 12790510) 317 [facility] CtrMean platelet zibhgu8101-94-62 19:24:00* Test Item Value Reference Range Interpretation Comme nts Mean Platelet Volume (test c ode = 09008625) 8.9 [facility] CtrNeutrophils seg % fvq4703-26-37 19:24:00* Test Item Value Reference Range Interpretation Comme nts Neutrophils (%) (Auto) (test code = 47029-1) 66.6 [facility] CtrAbsolute immature granulocyte lcvdk1819-91-54 19:24:00* Test Item Value Reference Range Interpretation Comme [facility] Absolute Immature Granulocyt e (auto (test code = 65356-9) 0.05 [facility] CtrBasophil % irweeq9106-20-26 19:24:00* Test Item Value Reference Range Interpretation Comme nts Basophils (%) (Auto) (test c ode = 67811-3) 0.3 [facility] CtrBlood band neutrophils count (number/volume) 2024-12-17 19:24:00* Test Item Value Reference Range Interpretation Comme [facility] Neutrophils # (Auto) (test c ode = 12626-0) 6.88 [facility] CtrAbsolute lymphocyte atprv9025-08-16 19:24:00* Test Item Value Reference Range Interpretation Comme nts Lymphocytes # (Auto) (test c ode = 87426-9) 2.63 [facility] CtrAbsolute basophil rxpst8153-81-42 19:24:00* Test Item Value Reference Range Interpretation Comme [facility] Basophils # (Auto) (test cod e = 67096486) 0.03 [facility] CtrAbsolute NRBC huiny4903-17-76 19:24:00* Test Item Value Reference Range Interpretation Comme nts Nucleated Red Blood Cells # (test code = 123841130) 0 [facility] CtrCT ANGIOGRAM ABDOMEN/AHRCYE3206-47-08 21:43:56CT ANGIOGRAM ABDOMEN/PELVIS 03/29/2024 3:58 PM HISTORY: GI bleed. Hematemesis with nausea. COMPARISON: None. TECHNIQUE: Axial images of the abdomen and pelvis were acquired before andafter administration of intravenous contrast. Coronal and sagittalreconstructions were also created. FINDINGS: LOWER CHEST: The lungs bases are clear. ? HEPATOBILIARY: The liver is enlarged and measuring 20.6 cm in length.Decreased parenchymal attenuation. No focal hepatic lesion.The gallbladder is normal.No biliaryductal dilatation. SPLEEN: Normal in size. ?No lesion. PANCREAS: The parenchyma is unremarkable. Noductal dilatation. No masses. ADRENAL GLANDS: No adrenal nodules. KIDNEYS: No hydronephrosis or stone. No solid mass. GI TRACT: An irregular hyperdensity within the proximal stomach iscompatible witha hyperdense ingested material no active extravasation ofcontrast.No bowel inflammation.Submucosal fatty infiltration of colon could be of no clinical significanceor related to obesity, insulin resistance or sequela of chronic colitis.The appendix is normal. PERITONEUM AND RETROPERITONEUM: No free air or free fluid. LYMPH NODES: No lymphadenopathy is seen. PELVIS/BLADDER: The urinary bladder is normal. The reproductive organs arewithin normal limits. VESSELS: Within normal limits. BONES AND SOFT TISSUES: No aggressive osseous lesion or acute osseousabnormality. No concerning soft tissue abnormality. [facility]. METABOLIC PANEL (97235)2024-03-29 20:19:07* Test Item Value Reference Range Interpretation Comme nts NA (test code = 2587791524) 138 mmol/L 135-145 K (test code = 2396521599) 4.2 mmol/L 3.5-5.0 CL (test code = 0467173631) 104 mmol/L 98-108 CO2 TOTAL (test code = 5441064080) 24 mmol/L 23-31 AGAP (test code = 1509074987) 10 2-16 BUN (test code = 8009364551) 6 mg/dL 7-23 L GLUCOSE (test code = 3211221990) 99 mg/dL 70-110 CREATININE (test code = 2160-0) 0.70 mg/dL 0.50-1.04 TOTAL BILI (test code = 9293832684) 0.9 mg/dL 0.1-1.1 CALCIUM (test code = 4309127797) 9.8 mg/dL 8.6-10.6 T PROTEIN (test code = 7361957542) 7.4 g/dL 6.3-8.2 ALBUMIN (test code = 0061086217) 4.4 g/dL 3.5-5.0 ALK PHOS (test code = 8531160075) 109 U/L 34-122 ALTv (test code = 1742-6) 192 U/L 5-35 H AST(SGOT) (test code = 6530650028) 234 U/L 13-40 H eGFR (test code = 09363-9) 122.5 mL/min/1.73m2 CKD-EPI eGFR (2020). Assuming creatinine has been stable day-to-day for at least three months, the eGFR indicates Category G1 (>= 90 mL/min/1.73 m2) Lab Interpretation (test code = 84789-1) [facility]normal [facility]IPASE20[facility] 20:19:06* Test Item Value Reference Range Interpretation Comme nts LIPASE (test code = 2051305222) 139 U/L 0-220 Lab Interpretation (test cod e = 36710-5) Normal [facility] WITH NDOD5099-68-30 20:10:26* Test Item Value Reference Range Interpretation Comme nts WBC (test code = 6690-2) 8.04 4.30-11.10 RBC (test code = 789-8) 4.12 3.93-5.25 HGB (test code = 718-7) 13.2 g/dL 11.6-15.0 HCT (test code = 4544-3) 39.9 % 35.7-45.2 MCV (test code = 787-2) 96.8 fL 80.6-95.5 H MCH (test code = 785-6) 32.0 pg 25.9-32.8 MCHC (test code = 786-4) 33.1 g/dL 31.6-35.1 RDW-SD (test code = 95506-8) 48.5 fL 39.0-49.9 RDW-CV (test code = 788-0) 13.6 % 12.0-15.5 PLT (test code = 777-3) 236 166-358 MPV (test code = 20657-4) 9.7 fL 9.5-12.9 NRBC/100 WBC (test code = 1133978727) 0.0 0.0-10.0 NRBC x10^3 (test code = 5164711660) See_Comment [Automated messa ge] The system which generated this result transmitted reference range: 10*3/?L. The reference range was not used to interpret this result as normal/abnormal. GRAN MAT (NEUT) % (test code = 770-8) 62.9 % IMM GRAN % (test code = 7835372011) 1.40 % LYMPH % (test code = 736-9) 27.1 % MONO % (test code = 5905-5) 5.8 % EOS % (test code = 713-8) 2.4 % BASO % (test code = 706-2) 0.4 % GRAN MAT x10^3(ANC) (test code = 1528372810) 5.06 10*3/uL 1.88-7.09 IMM GRAN x10^3 (test code = 5218717828) 0.11 10*3/uL 0.00-0.06 H LYMPH x10^3 (test code = 731-0) 2.18 10*3/uL 1.32-3.29 MONO x10^3 (test code = 742-7) 0.47 10*3/uL 0.33-0.92 EOS x10^3 (test code = 711-2) 0.19 10*3/uL 0.03-0.39 BASO x10^3 (test code = 704-7) 0.03 10*3/uL 0.01-0.07 Lab Interpretation (test code = 55191-6) [facility]normal [facility] CenterPO[facility] JYGS5071-99-00 19:46:00* Test Item Value Reference Range Interpretation Comme nts POCT PREG (test code = 1605) Negative On board controls acceptable with C Line (test code = 3574) Yes POCT PREG LOT # (test code = 3575) [id number] POCT PREG TEST DATE ( test code = 3576) 2025-07-05 Lab Interpretation (test cod e = 95888-4) Normal [facility] CenterRubella Screen ([facility]) UuR5599-34-37 17:12:59 * Test Item Value Reference Range Interpretation Comme nts Rubella screen IgG (test code = 9672199271) Negative Negative LISA (test code = LISA) Positive - Indicat es the patient was exposed to Rubella through infection or vaccination.Negative - Indicates the patient could be susceptible to Rubella infection.Equivocal - A second specimen should be sent. [facility] CenterCB with Bcgwzjxlziwk1197-07-98 10:09:16* Test Item Value Reference Range Interpretation Comme nts WBC (test code = 6690-2) See_Comment H [Automated message] The system which generated this result transmitted reference range: 4.30 - 11.10 10*3/?L. The reference range was not used to interpret this result as normal/abnormal. RBC (test code = 789-8) See_Comment L [Automated message] The system which generated this result transmitted reference range: 3.93 - 5.25 10*6/?L. The reference range was not used to interpret this result as normal/abnormal. HGB (test code = 718-7) 9.2 g/dL 11.6-15 L HCT (test code = 4544-3) 28.7 % 35.7-45.2 L MCV (test code = 787-2) 87.2 fL 80.6-95.5 MCH (test code = 785-6) 28.0 pg 25.9-32.8 MCHC (test code = 786-4) 32.1 g/dL 31.6-35.1 RDW-SD (test code = 56764-1) 44.1 fL 39-49.9 RDW-CV (test code = 788-0) 13.9 % 12-15.5 PLT (test code = 777-3) See_Comment [Automated message] The system which generated this result transmitted reference range: 166 - 358 10*3/?L. The reference range was not used to interpret this result as normal/abnormal. MPV (test code = 30956-6) 9.6 fL 9.5-12.9 NRBC/100 WBC (test code = 5675304683) See_Comment [Automated message] The system which generated this result transmitted reference range: 0.0 - 10.0 /100 WBCs. The reference range was not used to interpret this result as normal/abnormal. NRBC x10^3 (test code = 0723246801) See_Comment [Automated message] The system which generated this result transmitted reference range: 10*3/?L. The reference range was not used to interpret this result as normal/abnormal. GRAN MAT (NEUT) % (test code = 770-8) 82.7 % IMM GRAN % (test code = 3483931682) 0.90 % LYMPH % (test code = 736-9) 10.6 % MONO % (test code = 5905-5) 5.4 % EOS % (test code = 713-8) 0.3 % BASO % (test code = 706-2) 0.1 % GRAN MAT x10^3(ANC) (test code = 6392597525) 12.50 10*3/uL 1.88-7.09 H IMM GRAN x10^3 (test code = 5565240594) 0.14 10*3/uL 0-0.06 H LYMPH x10^3 (test code = 731-0) 1.61 10*3/uL 1.32-3.29 MONO x10^3 (test code = 742-7) 0.81 10*3/uL 0.33-0.92 EOS x10^3 (test code = 711-2) 0.05 10*3/uL 0.03-0.39 BASO x10^3 (test code = 704-7) 0.01-0.07 Lab Interpretation (test code = 24785-4) Abnormal [facility] CenterAD OR [facility] ONLY - VPQ3831-74-08 07:33:32* Test Item Value Reference Range Interpretation Comme nts RPR (Qualitative) (test code = 57474-0) Nonreactive Nonreactive Lab Interpretation (test cod e = 71340-1) Normal [facility] CenterHepatitis B Surface Ayljgxk6714-09-76 15:27:48 * Test Item Value Reference Range Interpretation Comme nts HBsAg Semi-Quantitative (bandar t code = 5195-3) Negative Negative [facility] CenterType and Screen - ONCE UCQI1030-51-22 11:39:32 * Test Item Value Reference Range Interpretation Comme nts ABO & RH (test code = 20) A Positive Performed at [facility] Laboratory [facility] Blood [address] [place], [place] [address]Toll Free: [phone] No. [id number] IAT (test code = 1185) Negative Performed at [facility] Blood [place] [address]Toll Free: [phone] No. [id number] [facility] CenterCBC with Pjiaupgzhbup8102-52-93 11:38:48* Test Item Value Reference Range Interpretation Comme nts WBC (test code = 6690-2) See_Comment H [Automated messa ge] The system which generated this result transmitted reference range: 4.30 - 11.10 10*3/?L. The reference range was not used to interpret this result as normal/abnormal. RBC (test code = 789-8) See_Comment L [Automated messa ge] The system which generated this result transmitted reference range: 3.93 - 5.25 10*6/?L. The reference range was not used to interpret this result as normal/abnormal. HGB (test code = 718-7) 9.6 g/dL 11.6-15 L HCT (test code = 4544-3) 29.4 % 35.7-45.2 L MCV (test code = 787-2) 88.0 fL 80.6-95.5 MCH (test code = 785-6) 28.7 pg 25.9-32.8 MCHC (test code = 786-4) 32.7 g/dL 31.6-35.1 RDW-SD (test code = 80004-8) 46.1 fL 39-49.9 RDW-CV (test code = 788-0) 14.4 % 12-15.5 PLT (test code = 777-3) See_Comment [Automated messa ge] The system which generated this result transmitted reference range: 166 - 358 10*3/?L. The reference range was not used to interpret this result as normal/abnormal. MPV (test code = 93207-7) 9.8 fL 9.5-12.9 NRBC/100 WBC (test code = 9780344626) See_Comment [Automated me ssage] The system which generated this result transmitted reference range: 0.0 - 10.0 /100 WBCs. The reference range was not used to interpret this result as normal/abnormal. NRBC x10^3 (test code = 8326769746) See_Comment [Automated messa ge] The system which generated this result transmitted reference range: 10*3/?L. The reference range was not used to interpret this result as normal/abnormal. GRAN MAT (NEUT) % (test code = 770-8) 71.0 % IMM GRAN % (test code = 7100154417) 1.90 % LYMPH % (test code = 736-9) 19.7 % MONO % (test code = 5905-5) 5.7 % EOS % (test code = 713-8) 1.5 % BASO % (test code = 706-2) 0.2 % GRAN MAT x10^3(ANC) (test code = 5239715562) 7.92 10*3/uL 1.88-7.09 H IMM GRAN x10^3 (test code = 6211876417) 0.21 10*3/uL 0-0.06 H LYMPH x10^3 (test code = 731-0) 2.19 10*3/uL 1.32-3.29 MONO x10^3 (test code = 742-7) 0.63 10*3/uL 0.33-0.92 EOS x10^3 (test code = 711-2) 0.17 10*3/uL 0.03-0.39 BASO x10^3 (test code = 704-7) 0.01-0.07 Lab Interpretation (test code = 51863-3) Abnormal [facility] W/AUTO DIFF WITH PFONXKUJL4410-92-34 04:43:17* Test Item Value Reference Range Interpretation Comme nts WBC (test code = 1001) 10.1 K/UL 3.5-11.0 RBC (test code = 1002) 3.57 M/UL 3.80-5.40 L HEMOGLOBIN (test code = 1003) 10.2 G/DL 11.5-15.5 L HEMATOCRIT (test code = 1004) 30.5 % 34.0-45.0 L MCV (test code = 1005) 85.4 fL 80.0-99.0 MCH (test code = 1006) 28.6 PG 25.0-33.0 MCHC (test code = 1007) 33.4 G/DL 31.0-36.0 RDW (test code = 1038) 12.8 % 11.5-15.0 NEUTROPHILS (test code = 1008) 75.5 % LYMPHOCYTES (test code = 1010) 16.9 % MONOCYTES (test code = 1011) 4.2 % EOSINOPHILS (test code = 1012) 1.7 % BASOPHILS (test code = 1013) 0.2 % IMMATURE GRANULOCYTES (test code = 1036) 1.5 % NUCLEATED RBCS (test code = 1065) 0.0 /100 WBC'S See_Comment [Automated message] The system which generated this result transmitted reference range: 0.0. The reference range was not used to interpret this result as normal/abnormal. PLATELET COUNT (test code = 1015) 363 K/UL 130-400 ABSOLUTE NEUTROPHILS (test code = 1066) 7.61 K/UL 1.50-7.50 H ABSOLUTE LYMPHOCYTES (test code = 1067) 1.70 K/UL 1.00-4.00 ABSOLUTE MONOCYTES (test code = 1068) 0.42 K/UL 0.20-1.00 ABSOLUTE EOSINOPHILS (test code = 1040) 0.17 K/UL 0.00-0.50 ABSOLUTE BASOPHILS (test code = 1069) 0.02 K/UL 0.00-0.20 ABS IMMATURE GRANULOCYTES (test code = 1020) 0.15 K/UL 0.00-0.10 H ABS NUCLEATED RBCS (test code = 06735) 0.00 K/UL 0.00-0.11 UNLESS OTHER MILLAN INDICATED, ALL TESTING PERFORMED ATCLINICAL PATHOLOGY [employer] [address] [place] [address] APICULTURIST: BRIAN JAUREGUI M.D. CLIA NUMBER [id number] [place]. [id number] CBC W/AUTO [id number] 00:00:00* Test Item Value Reference Range Interpretation Comme nts WBC (test code = 1001) 10.1 K/UL RBC (test code = 1002) 3.57 M/UL HEMOGLOBIN (test code = 1003) 10.2 G/DL HEMATOCRIT (test code = 1004) 30.5 % MCV (test code = 1005) 85.4 fL MCH (test code = 1006) 28.6 PG MCHC (test code = 1007) 33.4 G/DL RDW (test code = 1038) 12.8 % NEUTROPHILS (test code = 1008) 75.5 % LYMPHOCYTES (test code = 1010) 16.9 % MONOCYTES (test code = 1011) 4.2 % EOSINOPHILS (test code = 1012) 1.7 % BASOPHILS (test code = 1013) 0.2 % IMMATURE GRANULOCYTES (test code = 1036) 1.5 % NUCLEATED RBCS (test code = 1065) 0.0 /100WBC'S PLATELET COUNT (test code = 1015) 363 K/UL ABSOLUTE NEUTROPHILS (test c ode = 1066) 7.61 K/UL ABSOLUTE LYMPHOCYTES (test c ode = 1067) 1.70 K/UL ABSOLUTE MONOCYTES (test cod e = 1068) 0.42 K/UL ABSOLUTE EOSINOPHILS (test c ode = 1040) 0.17 K/UL ABSOLUTE BASOPHILS (test cod e = 1069) 0.02 K/UL ABS IMMATURE GRANULOCYTES (t est code = 1020) 0.15 K/UL ABS NUCLEATED RBCS (test cod e = 05010) 0.00 K/UL CULTURE, [id number] 08:19:48SPECIMEN NUMBER: [id number] CULTURE, URINE SPECIMEN NUMBER: [id number] SPECIMEN COMMENT: URINE SOURCE: URINE REPORT STATUS: FINAL FINAL REPORT: 03/31/2022 50-100,000 CFU/ML UROGENITAL LINDSAY PRESENT NO C OMMON PATHOGENSCULTURE, [id number] 00:00:00* Test Item Value Reference Range Interpretation Comme nts CULTURE, URINE (test code = 94979) SPECIMEN NUMBER: [id number] CT/NG, NAAT, [id number] 18:50:49* Test Item Value Reference Range Interpretation Comme nts GONORRHEA, NAAT (test code = 89652) NEGATIVE NEGATIVE IMPORTANT NO DEDE: SEE ANNOUNCEMENT AT [email or web address] Note: Assay methodology is nucleic acid amplification by mechanical apprentice mediated amplification (TMA) utilizing the Aptima Combo 2 Assay. CHLAMYDIA, NAAT (test code = 75163) NEGATIVE NEGATIVE IMPORTANT NO DEDE: SEE ANNOUNCEMENT AT [email or web address] Note: Assay methodology is nucleic acid amplification by mechanical apprentice mediated amplification (TMA) utilizing the Aptima Combo 2 Assay. UNLESS OTHERWISE INDICATED, ALL TESTING PERFORMED [facility] [employer] [address] [place] [id number] APICULTURIST: BRIAN JAUREGUI M.D. [place] NUMBER [id number] [facility] [place]. [id number] VARICELLA ZOSTER [id number] 17:05:21* Test Item Value Reference Range Interpretation Comme nts VARICELLA ZOSTER IgG (test code = 74720) 330 INDEX SEE BELOW INTERPRETATI ON VZV IgG NEGATIVE . . . . . . . . . . . . INDEX <135 EQUIVOCAL. . . . . . . . . . . . INDEX 135-164 NOTE: CONSIDER RETESTING IN A CLINICALLY SUITABLE PERIOD OF TIME, NO SOONER THAN 1-2 WEEKS. POSITIVE . . . . . . . . . . . . INDEX >=165 OBSTETRIC PANEL + [id number] 03:07:18* Test Item Value Reference Range Interpretation Comme nts WBC (test code = 1001) 12.6 K/UL 3.5-11.0 H RBC (test code = 1002) 3.51 M/UL 3.80-5.40 L HEMOGLOBIN (test code = 1003) 10.3 G/DL 11.5-15.5 L HEMATOCRIT (test code = 1004) 30.0 % 34.0-45.0 L MCV (test code = 1005) 85.5 fL 80.0-99.0 MCH (test code = 1006) 29.3 PG 25.0-33.0 MCHC (test code = 1007) 34.3 G/DL 31.0-36.0 RDW (test code = 1038) 12.8 % 11.5-15.0 NEUTROPHILS (test code = 1008) 75.4 % LYMPHOCYTES (test code = 1010) 14.8 % MONOCYTES (test code = 1011) 5.2 % EOSINOPHILS (test code = 1012) 2.0 % BASOPHILS (test code = 1013) 0.3 % IMMATURE GRANULOCYTES (test code = 1036) 2.3 % NUCLEATED RBCS (test code = 1065) 0.0 /100 WBC'S See_Comment [Automated me ssage] The system which generated this result transmitted reference range: 0.0. The reference range was not used to interpret this result as normal/abnormal. PLATELET COUNT (test code = 1015) 382 K/UL 130-400 ABSOLUTE NEUTROPHILS (test code = 1066) 9.51 K/UL 1.50-7.50 H ABSOLUTE LYMPHOCYTES (test code = 1067) 1.87 K/UL 1.00-4.00 ABSOLUTE MONOCYTES (test code = 1068) 0.66 K/UL 0.20-1.00 ABSOLUTE EOSINOPHILS (test code = 1040) 0.25 K/UL 0.00-0.50 ABSOLUTE BASOPHILS (test code = 1069) 0.04 K/UL 0.00-0.20 ABS IMMATURE GRANULOCYTES (test code = 1020) 0.29 K/UL 0.00-0.10 H ABS NUCLEATED RBCS (test code = 86808) 0.00 K/UL 0.00-0.11 BLOOD TYPE AND RH (test code = 3901) A POSITIVE A HISTORICAL RECORD CHECK FOR PREVIOUS RESULTS IS NOT PERFORMED.THESE RESULTS SHOULD BE CORRELATED WITH RESULTS OF PRIOR BLOODTYPING AND ANTIBODY SCREEN STUDIES. ANTIBODY SCREEN (test code = 3902) NEGATIVE NEGATIVE A HISTORICAL RECORD CHECK FOR PREVIOUS RESULTS IS NOT PERFORMED.THESE RESULTS SHOULD BE CORRELATED WITH RESULTS OF PRIOR BLOODTYPING AND ANTIBODY SCREEN STUDIES. RUBELLA ANTIBODY SCREEN (test code = 4600) 13 IU/ML SEE BELOW INTERPRETATION RUBELLA IgG NON-REACTIVE/NON-IMM UNE . . . . . . . IU/ML <10 REACTIVE/IMMUNE . . . . . . . . . . . IU/ML >=10 RUBELLA IgG INTERP (test code = 39541) REACTIVE REACTIVE HEPATITIS B SURF AG (test code = 2739) NON-REACTIVE NON-REACTIVE RPR (test code = 53566) NON-REACTIVE NON-REACTIVE RPR TITER (test code = 3500) NOT INDIC. TITER NOT INDIC. HIV 1/2 4TH GEN, RFLX CONF (test code = 3514) NON-REACTIVE NON-REACTIVE HEPATITIS C REFLEX [id number] 03:07:18* Test Item Value Reference Range Interpretation Comme nts HEPATITIS C ANTIBODY (test c ode = 4675) NON-REACTIVE NON-REACTIVE [id number] 03:01:15* Test Item Value Reference Range Interpretation Comme nts RPR RESULT (test code = 3501) NON-REACTIVE NON-REACTIVE RPR TITER (test code = 3500) NOT INDIC. TITER NOT INDIC. OBSTETRIC PANEL + [id number] 00:00:00* Test Item Value Reference Range Interpretation Comme nts WBC (test code = 1001) 12.6 K/UL RBC (test code = 1002) 3.51 M/UL HEMOGLOBIN (test code = 1003) 10.3 G/DL HEMATOCRIT (test code = 1004) 30.0 % MCV (test code = 1005) 85.5 fL MCH (test code = 1006) 29.3 PG MCHC (test code = 1007) 34.3 G/DL RDW (test code = 1038) 12.8 % NEUTROPHILS (test code = 1008) 75.4 % LYMPHOCYTES (test code = 1010) 14.8 % MONOCYTES (test code = 1011) 5.2 % EOSINOPHILS (test code = 1012) 2.0 % BASOPHILS (test code = 1013) 0.3 % IMMATURE GRANULOCYTES (test code = 1036) 2.3 % NUCLEATED RBCS (test code = 1065) 0.0 /100WBC'S PLATELET COUNT (test code = 1015) 382 K/UL ABSOLUTE NEUTROPHILS (test code = 1066) 9.51 K/UL ABSOLUTE LYMPHOCYTES (test code = 1067) 1.87 K/UL ABSOLUTE MONOCYTES (test code = 1068) 0.66 K/UL ABSOLUTE EOSINOPHILS (test code = 1040) 0.25 K/UL ABSOLUTE BASOPHILS (test code = 1069) 0.04 K/UL ABS IMMATURE GRANULOCYTES (test code = 1020) 0.29 K/UL ABS NUCLEATED RBCS (test code = 86243) 0.00 K/UL BLOOD TYPE AND RH (test code = 3901) A POSITIVE ANTIBODY SCREEN (test code = 3902) NEGATIVE RUBELLA ANTIBODY SCREEN (test code = 4600) 13 IU/ML RUBELLA IgG INTERP (test code = 14916) REACTIVE HEPATITIS B SURF AG (test code = 2739) NON-REACTIVE RPR (test code = 84579) NON-REACTIVE RPR TITER (test code = 3500) NOT INDIC. TITER HIV 1/2 4TH GEN, RFLX CONF (test code = 3514) NON-REACTIVE HEPATITIS C REFLEX [id number] 00:00:00* Test Item Value Reference Range Interpretation Comme nts HEPATITIS C ANTIBODY (test c ode = 4675) NON-REACTIVE [id number] 00:00:00* Test Item Value Reference Range Interpretation Comme nts RPR RESULT (test code = 3501) NON-REACTIVE RPR TITER (test code = 3500) NOT INDIC. TITER VARICELLA ZOSTER [id number] 00:00:00* Test Item Value Reference Range Interpretation Comme nts VARICELLA ZOSTER IgG (test c ode = 23818) 330 INDEX GC AND CHLAMYDIA, AMPLIFIED, [id number] 00:00:00* Test Item Value Reference Range Interpretation Comme nts GONORRHEA, NAAT (test code = 55426) NEGATIVE CHLAMYDIA, NAAT (test code = 29642) NEGATIVE Free T4 and TSH panel - Serum or [id number] 00:00:00* Test Item Value Reference Range Interpretation Comme nts Thyrotropin [Units/volume] i n Serum or Plasma by Detection limit <= 0.005 mIU/L (test code = 54766-1) 3.180 uIU/mL 0.450-4.500 Thyroxine (T4) free [Mass/volume] in Serum or Plasma (test code = 3024-7) 1.15 NG/dL 0.82-1.77 [facility] W Auto Differential panel - Blood 2021-07-15 00:00:00* Test Item Value Reference Range Interpretation Comme nts Leukocytes [#/volume] in Blo od by Automated count (test code = 6690-2) 7.6 x10e3/uL 3.4-10.8 Erythrocytes [#/volume] in Blood by Automated count (test code = 789-8) 4.54 x10e6/uL 3.77-5.28 Hemoglobin [Mass/volume] in Blood (test code = 718-7) 13.3 g/dL 11.1-15.9 Hematocrit [Volume Fraction] of Blood by Automated count (test code = 4544-3) 40.9 % 34.0-46.6 MCV [Entitic volume] by Automated count (test code = 787-2) 90 fL 79-97 MCH [Entitic mass] by Automa timi count (test code = 785-6) 29.3 pg 26.6-33.0 MCHC [Mass/volume] by Automa timi count (test code = 786-4) 32.5 g/dL 31.5-35.7 Erythrocyte distribution wid th [Ratio] by Automated count (test code = 788-0) 13.0 % 11.7-15.4 Platelets [#/volume] in Bloo d by Automated count (test code = 777-3) 283 x10e3/uL 150-450 Neutrophils/100 leukocytes i n Blood by Automated count (test code = 770-8) 53 % not estab. Lymphocytes/100 leukocytes i n Blood by Automated count (test code = 736-9) 37 % not estab. Monocytes/100 leukocytes in Blood by Automated count (test code = 5905-5) 7 % not estab. Eosinophils/100 leukocytes i n Blood by Automated count (test code = 713-8) 2 % not estab. Basophils/100 leukocytes in Blood by Automated count (test code = 706-2) 0 % not estab. immature cells (test code = immature cells) matrix worker Neutrophils [#/volume] in Bl ood by Automated count (test code = 751-8) 4.1 x10e3/uL 1.4-7.0 Lymphocytes [#/volume] in Bl ood by Automated count (test code = 731-0) 2.8 x10e3/uL 0.7-3.1 Monocytes [#/volume] in Bloo d by Automated count (test code = 742-7) 0.5 x10e3/uL 0.1-0.9 Eosinophils [#/volume] in Bl ood by Automated count (test code = 711-2) 0.2 x10e3/uL 0.0-0.4 Basophils [#/volume] in Bloo d by Automated count (test code = 704-7) 0.0 x10e3/uL 0.0-0.2 Immature granulocytes/100 leukocytes in Blood by Automated count (test code = 16556-6) 1 % not estab. Immature granulocytes [#/volume] in Blood by Automated count (test code = 06550-0) 0.0 x10e3/uL 0.0-0.1 Nucleated erythrocytes/100 leukocytes [Ratio] in Blood by Automated count (test code = 62107-5) matrix worker Morphology [Interpretation] in Blood Narrative (test code = 11721-2) matrix worker [facility] - Serum or [id number] 00:00:00* Test Item Value Reference Range Interpretation Comme nts Glucose [Mass/volume] in Serum or Plasma (test code = 2345-7) 95 mg/dL 65-99 Urea nitrogen [Mass/volume] in Serum or Plasma (test code = 3094-0) 10 mg/dL 6-20 Creatinine [Mass/volume] in Serum or Plasma (test code = 2160-0) 0.72 mg/dL 0.57-1.00 Glomerular filtration rate/1.73 sq M.predicted among non-blacks [Volume Rate/Area] in Serum, Plasma or Blood by Creatinine-based formula (CKD-EPI) (test code = 15796-4) 118 mL/min/1.73 >59 Glomerular filtration rate/1.73 sq M.predicted among blacks [Volume Rate/Area] in Serum, Plasma or Blood by Creatinine-based formula (CKD-EPI) (test code = 29995-2) 136 mL/min/1.73 >59 Urea nitrogen/Creatinine [Mass Ratio] in Serum or Plasma (test code = 3097-3) 14 9-23 Sodium [Moles/volume] in Serum or Plasma (test code = 2951-2) 140 mmol/L 134-144 Potassium [Moles/volume] in Serum or Plasma (test code = 2823-3) 4.3 mmol/L 3.5-5.2 Chloride [Moles/volume] in Serum or Plasma (test code = 5-0) 105 mmol/L 96-106 Carbon dioxide, total [Moles/volume] in Serum or Plasma (test code = 2027-9) 21 mmol/L 20-29 Calcium [Mass/volume] in Serum or Plasma (test code = 15848-9) 9.5 mg/dL 8.7-10.2 Protein [Mass/volume] in Serum or Plasma (test code = 2885-2) 6.6 g/dL 6.0-8.5 Albumin [Mass/volume] in Serum or Plasma (test code = 1751-7) 4.5 g/dL 3.9-5.0 Globulin [Mass/volume] in Serum by calculation (test code = 71601-6) 2.1 g/dL 1.5-4.5 Albumin/Globulin [Mass Ratio ] in Serum or Plasma (test code = 1759-0) 2.1 1.2-2.2 Bilirubin.total [Mass/volume ] in Serum or Plasma (test code = 1975-2) 0.4 mg/dL 0.0-1.2 Alkaline phosphatase [Enzymatic activity/volume] in Serum or Plasma (test code = 6768-6) 128 IU/L 44-121 H Aspartate aminotransferase [Enzymatic activity/volume] in Serum or Plasma (test code = 1920-8) 116 IU/L 0-40 H Alanine aminotransferase [Enzymatic activity/volume] in Serum or Plasma (test code = 1742-6) 264 IU/L 0-32 H [facility] - Serum or Plasma 2021-07-15 00:00:00* Test Item Value Reference Range Interpretation Comme nts Cholesterol [Mass/volume] in Serum or Plasma (test code = 2093-3) 176 mg/dL 100-199 Triglyceride [Mass/volume] i n Serum or Plasma (test code = 2571-8) 163 mg/dL 0-149 H Cholesterol in HDL [Mass/vol ume] in Serum or Plasma (test code = 2085-9) 45 mg/dL >39 Cholesterol in VLDL [Mass/vo lume] in Serum or Plasma by calculation (test code = 55012-6) 28 mg/dL 5-40 Cholesterol in LDL [Mass/vol ume] in Serum or Plasma by calculation (test code = 26274-1) 103 mg/dL 0-99 H Laboratory comment [Text] in Report Narrative (test code = 94540-3) matrix worker [facility] [Presence] in Serum by RPR 2021-07-15 00:00:00* Test Item Value Reference Range Interpretation Comme nts Reagin Ab [Presence] in Seru m by RPR (test code = 35297-1) non reactive non reactive [facility] Ab+HIV1 p24 Ag [Presence] in Serum or Plasma by [id number] 00:00:00* Test Item Value Reference Range Interpretation Comme nts HIV 1+2 Ab+HIV1 p24 Ag [Presence] in Serum or Plasma by Immunoassay (test code = 27614-6) non reactive non reactive [facility]atitis B virus surface Ag [Presence] in Serum or Plasma by [id number] 00:00:00* Test Item Value Reference Range Interpretation Comme nts Hepatitis B virus surface Ag [Presence] in Serum or Plasma by Immunoassay (test code = 5196-1) negative negative [facility] panel, [id number] 00:00:00* Test Item Value Reference Range Interpretation Comme nts Interpretation and review of laboratory results (test code = 07461-2) note Report (test code = 83830-3) . [facility] test, [id number] 15:04:00* Test Item Value Reference Range Interpretation Comme nts HCG (test code = HCG) negative [facility] Notes <thead> Date/Time Note Provider Source [facility]2025-03-19 23:20:30 [facility]2025-03-19 23:20:30 Please follow up with NATURAL SCIENCE CURATOR information to be provided within 48 hours. Please call to make an appointment no later than 12/19/2024 Future Tests Future scheduled test information is unavailable Pending Tests Pending diagnostic test information is unavailable Future Visits Future appointment information is unavailable Referrals to Other Providers <thead> Reason for Referral Referral Start Date Provider Provider Contact Information Provider Address NO PHYSICIAN Future Procedures <thead> Procedure Name Ordered Date Scheduled Date NPO except Meds December 17, 2024 6:56pm December 172024 6:55pm Insert Peripheral IV Access December 17, 2024 6:5 6pm December 17, 2024 6:55pm VS - Adult December 17, 2024 6:56pm December 172024 6:55pm Remove Clothing/Place in Gown December 17, 2024 7 :35pm December 17, 2024 7:34pm Cardiac, BP, Pulse Ox Monitor December 17, 2024 7 :35pm December 17, 2024 7:34pm Future Medications Future medication information is unavailable Patient Instructions <tbody> Subchorionic Hematoma Trichomonas Test [facility] [id number] 17:54:00 Pt discharged with diagnosis of hematemesis with nausea, fatty liver, and UGI bleed. Printed and verbal instructions reviewed with and given to pt. Prescriptions given x 3. Pt verbalized understanding of teaching, medications, and recommended follow-up. Denies questions or concerns at this time. Pt ambulatory at discharge. Appears in no apparent distress. No ataxia noted. Accompanied by family. [facility]2024-06-29 16:00:00 Pt resting in bed, NAD. Pending results. Call light within reach. [facility]2024-06-29 15:32:00 Report from Sana HEARD. [facility]2024-06-29 14:13:45 Pt to ED CO vomiting blood and blood in her stool for 5 weeks. States she has also had burning lower abd pain. States multiple episodes per day. Reports bright red and also dark red blood in her emesis. Drinks 2-3 beers daily. [facility] Rebecca Barney [facility]
[2025-01-17] MEDS ORDERED: ONDANSETRON 4 MG/2 ML VIAL ONE (15:33)
[2025-01-17] MEDS ORDERED: MORPHINE 2 MG/ML SYR ONE (15:37)
[2025-01-17 15:48] LABS: Absolute Basophils 0.1 K/uL (0-0.5); Absolute Eosinophils 0.2 K/uL (0-0.5); Absolute Lymphocytes (CBC) 2.4 K/uL (0.7-4.9); Absolute Monocytes 0.5 K/uL (0.1-1.3); Absolute Neutrophil 6.7 K/uL (1.8-8.0); Basophils % 0.5 % (0-1.3); Eosinophils % 2.2 % (0-4.4); Hematocrit 36.3 % (36.0-45.0); Hemoglobin 12.6 g/dL (12.0-15.0); Lymphocytes % 24.8 % (15.3-44.8); MCH 31.4 pg (27.0-35.0); MCHC 34.7 g/dL (32.0-36.0); MCV 90.5 fL (80-100); MPV 7.3 fL (7.6-11.3); Monocytes % 5.1 % (3.3-12.3); Neutrophils % 67.4 % (41.7-73.7); Nucleated Red Blood Cells % 0.1 % (0-0); Platelets 309 thou/uL (152-406); RBC Red Blood Cell Count 4.01 M/uL (3.86-4.86); Red Cell Distribution Width 13.5 % (12.1-15.2)
[2025-01-17 16:11] LABS: Anion Gap 10.6 mEq/L (5.0-15.0); Potassium 3.6 mEq/L (3.5-5.1)
[2025-01-17 17:14] LABS: Specific Gravity 1.021 (1.005-1.030); Sqamous Epithelial <5 /HPF (None Seen); Urine Bacteria <20 /HPF (<20); Urine Bilirubin NEGATIVE (Negative); Urine Blood 3+ (OVER) (Negative); Urine Clarity Extremely Turbid (Clear); Urine Color Brown (Yellow); Urine Culture Reflex Order REFLEXED; Urine Glucose NEGATIVE (Negative); Urine Ketones NEGATIVE (Negative); Urine Microscopic Reflex YN ORDER UMIC; Urine Mucus Slight /HPF (None Seen); Urine Nitrite NEGATIVE (Negative); Urine Protein 1+ (Negative); Urine RBC >50 /HPF (None Seen); Urine Urobilinogen Normal (Normal); Urine WBC >50 /HPF (<5); Urine pH 6.5 (5.0-7.0)
--- NOTE | 2025-01-17 17:22 | RAD REPORT ---
EXAM: Transvaginal OB HISTORY: Abd cramping, ;Vaginal bleeding COMPARISON: None TECHNIQUE: Multiple grayscale and color Doppler images were obtained in a transvaginal pelvic ultraso und. Spectral analysis of the Doppler waveforms of the ovaries were performed. FINDINGS: UTERUS: No IUP identified. Complex cystic and solid contents present within the endometrial canal arlette suring approximately 2 cm and with areas of possible vascular flow. No free fluid is seen in the pelvis. RIGHT OVARY: Normal flow without focal mass. LEFT OVARY: Normal flow without focal mass. IMPRESSION: No IUP identified. Complex cystic and solid contents within the endometrial canal could reflect retai earnest products of conception or molar . Per patient history, there was suspicion of a failed first trimester approximately 2 weeks prior. Recommend gynecologic consultation.
--- NOTE | 2025-01-17 17:37 | EDPHYS ---
Physician Documentation [facility] Name: Aisha Marie Age: 29 yrs Sex: Female : 1995 Arrival Date: 01/17/2025 Time: 15:05 Bed 7 Private MD: BRIAN Physician Roe Kaba HPI: 01/17 17:03 This 29 yrs old Female presents to ER via Ambulatory with complaints of 13 Weeks sb4 , Vaginal Bleeding, Abdominal Pain. 17:03 The patient presents to the emergency department with abdominal pain, of the suprapubic sb4 area, right lower quadrant and left lower quadrant, that started today, described as sharp, vaginal bleeding, that is moderate, with clots. The estimated gestational age is 12 weeks. course: care: none, Leakage of Fluid: none appreciated, Ultrasound: the patient had an ultrasound, which showed no pole, blood around gestational sac. Previous pregnancies: in previous pregnancies patient has had no complications. Patient reports mild vaginal bleeding x 2 weeks. States that she has been seen at 2 separate ERs, had 2 workups and was told conflicting things regarding her . States that she woke up today with severe lower abdominal pain with an increase in her vaginal bleeding. She does not have insurance and does not have any establish care with an OB. 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 - Infectious Disease History:: Denies. - Social history:: Smoking status: Patient denies any tobacco usage or history of. ROS: 17:03 Constitutional: Negative for fever, chills, and weight loss, sb4 17:03 : Positive for pelvic pain, vaginal bleeding, 17:03 All other systems are negative, Exam: 17:03 Constitutional: This is a well developed, well nourished patient who is awake, alert, sb4 and in no acute distress. Head/Face: Normocephalic, atraumatic. Eyes: Extra-ocular motions intact. Periorbital areas with no swelling, redness, or edema. ENT: Mucous membranes moist. Cardiovascular: Regular rate and rhythm with a normal S1 and S2. Respiratory: No increased work of breathing, no retractions or nasal flaring. Abdomen/GI: Soft, non-tender, no distension. MS/ Extremity: Pulses equal, no cyanosis. Neurovascular intact. Full, normal range of motion. 17:37 : Pelvic Exam: External exam: is normal, Speculum exam: moderate bleeding, blood sb4 clots in vaginal vault, no cervicitis, os that is closed, the nurse was present for the exam, Vital Signs: 15:24 BP 118 / 82; Pulse 105; Resp 18; Temp 97.3(TE); Pulse Ox 100% on R/A; Weight 113.4 kg; ld1 Height 5 ft. 6 in. ; Pain 10/10; 17:49 BP 132 / 72; Pulse 95; Resp 16; Temp 97.7; Pulse Ox 100% ; am7 19:04 BP 122 / 77; Pulse 84; Resp 16; Pulse Ox 100% ; ll1 19:35 BP 120 / 70; Pulse 85; Resp 18; Pulse Ox 99% ; al5 15:24 Body Mass Index 40.35 (113.40 kg, 167.64 cm) ld1 15:24 Pain Scale: Adult ld1 MDM: 15:16 Medical Screening Exam initiated sb4 17:05 Differential diagnosis: threatened Ab, inevitable Ab, complete Ab, retained Ab, missed sb4 Ab, ectopic . 17:38 Data reviewed: vital signs, nurses notes, lab test result(s), radiologic studies, I sb4 have discussed the patient's presentation/case with the attending Emergency Department Physician;. Counseling: I had a detailed discussion with the patient and/or guardian regarding the historical points, exam findings, and any diagnostic results supporting the discharge/admit diagnosis, lab results, radiology results, the need to transfer to another facility, [facility] does not immediately have the required specialist. 01/17 15:28 Order name: Basic Metabolic Panel; Complete Time: 16:35 sb4 01/17 15:28 Order name: CBC with Diff; Complete Time: 15:58 sb4 01/17 15:28 Order name: Test, Urine; Complete Time: 17:17 sb4 01/17 15:28 Order name: Quantitative Hcg; Complete Time: 16:35 sb4 01/17 15:28 Order name: Urinalysis w/ reflexes; Complete Time: 17:17 4 01/17 17:19 Order name: Urine Culture [facility] 01/17 18:10 Order name: Abo/rh Typing; Complete Time: 09:03 [facility] 01/17 15:28 Order name: US Transvaginal Ob; Complete Time: 17:23 4 01/17 15:28 Order name: IV Saline Lock; Complete Time: 15:29 [facility] 01/17 15:28 Order name: Labs collected and sent; Complete Time: 15:28 [facility] 01/17 16:51 Order name: Pelvic Exam Setup; Complete Time: 16:57 [facility] 01/17 18:14 Order name: NPO; Complete Time: 18:15 [place] Administered Medications: 15:35 Not Given (Physician Discretion): butorphanol1 mg IVP once sb4 15:39 Drug: Ondansetron IVP 4 mg IVP once; over 2 minutes Route: IVP; Site: right antecubital;bp 16:57 Follow up: Response: No adverse reaction ll1 15:39 Drug: morphine IVP or IV 2 mg IVP once over 4 mins Route: IVP; Infused Over: 4 mins; bp Site: right antecubital; 16:57 Follow up: Response: No adverse reaction; Pain is decreased ll1 17:49 Drug: ceFAZolin IVPB 1 grams 50 ml IVPB once over 30 mins Volume: 50 ml; Route: IVPB; ll1 Infused Over: 30 mins; Site: right antecubital; 19:35 Follow up: Response: No adverse reaction; IV Status: Completed infusion al5 17:49 Drug: fentaNYL (PF) IVP 50 mcg IVP once Route: IVP; Site: right antecubital; ll1 19:34 Follow up: Response: No adverse reaction; Pain is unchanged, physician notified al5 17:49 Drug: NS 0.9% IV 1000 ml IV at 1000 ml once; to be given as a bolus over 60 minutes ll1 Route: IV; Rate: 1000 ml; Site: right antecubital; 19:35 Follow up: Response: No adverse reaction; IV Status: Infusion continued upon transfer al5 19:34 Drug: fentaNYL (PF) IVP 50 mcg IVP once Route: IVP; Site: right antecubital; al5 19:35 Follow up: Response: No adverse reaction; Medication Administered at Departure al5 Disposition: 01/18 12:59 Co-signature as Attending Physician, Roe Kaba MD I agree with the assessment and [facility] plan of care. 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 EDMS EDMS 18:14 17:37 culinary internship sb4 [facility] 18:14 17:37 [facility] sb4 [facility] 19:48 18:14 culinary internship [facility] al5
--- NOTE | 2025-01-17 17:37 | ER ---
Nurse's Notes [facility] Name: Aisha Marie Age: 29 yrs Sex: Female : 1995 Arrival Date: 01/17/2025 Time: 15:05 Bed 7 Private MD: Diagnosis: Retained products of conception versus molar Presentation: 01/17 15:19 Coronavirus screen: At this time, the client does not indicate any symptoms associated ld1 with coronavirus-19. Ebola Screen: No symptoms or risks identified at this time. Initial Sepsis Screen: Does the patient meet any 2 criteria? No. Patient's initial sepsis screen is negative. Does the patient have a suspected source of infection? No. Patient's initial sepsis screen is negative. Risk Assessment: Do you want to hurt yourself or someone else? Patient reports no desire to harm self or others. Onset of symptoms was January 17, 2025. 15:19 Method Of Arrival: Ambulatory ld1 15:19 Acuity: CODY 3 ld1 15:24 Chief complaint: Patient states: Spotting 2-3 days. Pt reports large clot coming out ld1 today. Lower abdominal pain. Triage Assessment: 15:24 General: Appears in no apparent distress. uncomfortable, Behavior is calm, cooperative, ld1 appropriate for age. Pain: Complains of pain in suprapubic area Pain does not radiate. Pain currently is 10 out of 10 on a pain scale. Quality of pain is described as throbbing, Pain began suddenly, Is continuous. EENT: No signs and/or symptoms were reported regarding the EENT system. Neuro: Level of Consciousness is awake, alert, obeys commands, Oriented to person, place, time, situation. Cardiovascular: Capillary refill < 3 seconds Patient's skin is warm and dry. Respiratory: Airway is patent Respiratory effort is even, unlabored. GI: Abdomen is round non-distended, Reports lower abdominal pain, cramping. : Reports vaginal bleeding that is with clots. Derm: No signs and/or symptoms reported regarding the dermatologic system. Musculoskeletal: No signs and/or symptoms reported regarding the musculoskeletal system. 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 - Infectious Disease History:: Denies. - Social history:: Smoking status: Patient denies any tobacco usage or history of. Screenin:36 [facility] ED Fall Risk Assessment (Adult) History of falling in the last 3 months, ll1 including since admission No falls in past 3 months (0 pts) Confusion or Disorientation No (0 pts) Intoxicated or Sedated No (0 pts) Impaired Gait No (0 pts) Mobility Assist Device Used No (0 pt) Altered Elimination No (0 pt) Score/Fall Risk Level 0 - 2 = Low Risk Maintained a safe environment, Hourly rounding (assess needs \T\ fall precautionary measures) done. Abuse screen: Denies threats or abuse. Nutritional screening: No deficits noted. Tuberculosis screening: No symptoms or risk factors identified. Assessment: 15:37 Reassessment: No changes from previously documented assessment. Patient and/or family hb updated on plan of care and expected duration. Pain level reassessed. Patient is alert, oriented x 3, equal unlabored respirations, skin warm/dry/pink. 17:09 Reassessment: No changes from previously documented assessment. Patient and/or family ll1 updated on plan of care and expected duration. Pain level reassessed. Patient is alert, oriented x 3, equal unlabored respirations, skin warm/dry/pink. 17:37 Reassessment: No changes from previously documented assessment. Patient and/or family ll1 updated on plan of care and expected duration. Pain level reassessed. Patient is alert, oriented x 3, equal unlabored respirations, skin warm/dry/pink. 17:50 Reassessment: No changes from previously documented assessment. Patient and/or family ll1 updated on plan of care and expected duration. Pain level reassessed. Patient is alert, oriented x 3, equal unlabored respirations, skin warm/dry/pink. 18:44 Reassessment: No changes from previously documented assessment. Patient and/or family ll1 updated on plan of care and expected duration. Pain level reassessed. 19:04 Reassessment: No changes from previously documented assessment. Patient and/or family ll1 updated on plan of care and expected duration. Pain level reassessed. 19:36 General: Appears in no apparent distress. uncomfortable, Behavior is calm, cooperative. al5 Pain: Complains of pain in left lower quadrant and right lower quadrant and suprapubic area. Neuro: Level of Consciousness is awake, alert, obeys commands, Oriented to person, place, time, situation. Cardiovascular: Capillary refill < 3 seconds Patient's skin is warm and dry. Respiratory: Airway is patent Respiratory effort is even, unlabored, Respiratory pattern is regular, symmetrical. Derm: Skin is intact, is healthy with good turgor, Skin is pink, warm \T\ dry. normal. Musculoskeletal: No signs and/or symptoms reported regarding the musculoskeletal system. Vital Signs: 15:24 BP 118 / 82; Pulse 105; Resp 18; Temp 97.3(TE); Pulse Ox 100% on R/A; Weight 113.4 kg; ld1 Height 5 ft. 6 in. ; Pain 10/10; 17:49 BP 132 / 72; Pulse 95; Resp 16; Temp 97.7; Pulse Ox 100% ; am7 19:04 BP 122 / 77; Pulse 84; Resp 16; Pulse Ox 100% ; ll1 19:35 BP 120 / 70; Pulse 85; Resp 18; Pulse Ox 99% ; al5 15:24 Body Mass Index 40.35 (113.40 kg, 167.64 cm) ld1 15:24 Pain Scale: Adult ld1 ED Course: 15:09 Patient arrived in ED. im 15:10 Suze Bishop PA-C is PHCP. sb4 15:10 Roe Kaba MD is Attending Physician. sb4 15:19 Triage completed. ld1 15:23 Shoaib Romano, [place] is Primary Nurse. ll1 15:24 Arm band placed on right wrist. ld1 15:30 Patient has correct armband on for positive identification. Provided Education on: ER ll1 procedures and process. 15:37 Initial lab(s) drawn, by me, sent to lab. Inserted saline lock: 22 gauge in right hb antecubital area, using aseptic technique. Blood collected. Flushed with 10 mL NS. 16:24 US Transvaginal Ob In Process Unspecified. EDMS 16:58 Test, Urine Sent. ll1 16:58 Urinalysis w/ reflexes Sent. ll1 17:35 Assist provider with pelvic exam: Performed by Suze Bishop PA-C Patient tolerated well.ll1 17:51 called [facility] for Transfer talked to Saleem. sp 18:[address] Robin Arnold accepted pt to [facility] [place] [address] to the ER sp [phone] fax number [phone]. 18:39 Abo/rh Typing Sent. ll1 18:45 Patient transferred, IV remains in place. ll1 18:52 called [facility] for transfer talked to Brea. sp 19:45 Primary Nurse role handed off by Shoaib Romano, RN rv1 19:48 Alejandrina Trujillo, [place] is Primary Nurse. al5 Administered Medications: 15:35 Not Given (Physician Discretion): butorphanol1 mg IVP once sb4 15:39 Drug: Ondansetron IVP 4 mg IVP once; over 2 minutes Route: IVP; Site: right antecubital;bp 16:57 Follow up: Response: No adverse reaction ll1 15:39 Drug: morphine IVP or IV 2 mg IVP once over 4 mins Route: IVP; Infused Over: 4 mins; bp Site: right antecubital; 16:57 Follow up: Response: No adverse reaction; Pain is decreased ll1 17:49 Drug: ceFAZolin IVPB 1 grams 50 ml IVPB once over 30 mins Volume: 50 ml; Route: IVPB; ll1 Infused Over: 30 mins; Site: right antecubital; 19:35 Follow up: Response: No adverse reaction; IV Status: Completed infusion al5 17:49 Drug: fentaNYL (PF) IVP 50 mcg IVP once Route: IVP; Site: right antecubital; ll1 19:34 Follow up: Response: No adverse reaction; Pain is unchanged, physician notified al5 17:49 Drug: NS 0.9% IV 1000 ml IV at 1000 ml once; to be given as a bolus over 60 minutes ll1 Route: IV; Rate: 1000 ml; Site: right antecubital; 19:35 Follow up: Response: No adverse reaction; IV Status: Infusion continued upon transfer al5 19:34 Drug: fentaNYL (PF) IVP 50 mcg IVP once Route: IVP; Site: right antecubital; al5 19:35 Follow up: Response: No adverse reaction; Medication Administered at Departure al5 Medication: 17:37 VIS not applicable for this client. ll1 Outcome: 17:37 ER care complete, transfer ordered by sb4 19:47 Transferred by [facility] to [facility], al5 19:47 Condition: stable 19:47 Instructed on the need for transfer, 19:48 Patient left the ED. al5 Signatures: Dispatcher [employer] EDMS Geeta Forbes Heather, RN RN Daniel Lima RN RN Shoaib Dawkins RN RN ll1 Charlette Nazario RN RN ld1 Suze Bishop, PA-Valdo PA-Valdo sb4 Alba Leyva rv1 Camila Edwards Amanda, RN RN al5 Yu Herman am7 Corrections: (The following items were deleted from the chart) 18:27 18:[address] Robin Arnold accepted pt to [facility] [address] to the ER sp [phone] fax number [phone] sp 18:27 18:[address] Robin Arnold accepted pt to [facility] [address] to the ER sp [phone] fax number [phone] sp 20:22 18:44 Condition: stable ll1 al5 20:22 18:44 Transferred by ground EMS to [facility], Transfer form al5 completed. Note: report called to Alexa Mays RN at [facility] ED ll1 20:22 18:44 Instructed on the need for transfer, ll1 al5
[2025-01-17] MEDS ORDERED: NA CHLORIDE 0.9% 1,000 ML ONE (17:40)
[2025-01-17] MEDS ORDERED: CEFEPIME 1 GM/VIAL ONE (17:40)
[2025-01-17] MEDS ORDERED: FENTANYL CITR 100 MCG/2 ML ONE ×2 (17:40→19:27)
[2025-01-17 20:15] VITALS: TEMP 97.7
[2025-01-17 20:17] VITALS: BP 120/70; O2SAT 99
== END 2025-01-17 19:48 | disposition short-term general hospital (02) ==
LOC: ER 15:05
DX: O20.9 Hemorrhage in early pregnancy, unspecified (principal); Z3A.13 13 weeks gestation of pregnancy
CPT/HCPCS: 36415; 76817; 80048; 81001; 81025; 84702; 85025; 86900; 86901; 87086; 87088; 96365; 96366; 96375; 99285; J0692; J2270; J2405; J3010; J7030

== ENCOUNTER 2025-05-23 15:46 | Emergency (ER) | payer SELFPAY ==
--- OUTSIDE RECORDS SUMMARY | 2025-05-23 15:57 | XMS REPORT | Continuity of Care Document ---
Author Name Unknown Address [address] [facility] [address] [place] [address] [facility] [place] Address [address] [facility] [address] [place] [address] Care Team Providers Care Aviation Electronics Technician Name Role Phone NO PHYSICIAN, . Primary Care Physician Unavailab MÓNICA Turk Attending Clinician UnavailJenna Dtuton MD Attending Clinician TAY ARNOLD Attending Clinician Unavailable TAY ARNOLD Attending Clinician Unavailable Tay Arnold DO Attending Clinician ELISE IRBY Attending Clinician Unavailable ELISE IRBY Attending Clinician Unavailable CIARA TOLENTINO Attending Clinician Unavailable LINDY GAUTHIER Attending Clinician Unavailable Doctor Unassigned, [place] Attending Clinician Yasmine Dwyer MA Attending Clinician UnavailTRINITY Juarez Attending Clinician Unavailable Trinity Crabtree MD Attending Clinician Parker Dent CRNA Attending Clinician + [phone] Stan Pike CRNA Attending Clinician [phone] Kimberly Argueta MD Attending Clinician [phone] Only, Adc Test Attending Clinician Unavailable 2, [facility] Attending Clinician Unavailable HEATHER MOORE Attending Clinician Unavaila HEATHER Shannon Attending Clinician Unavaila Brittany Ruano PA-C Attending Clinician [phone] Yin Morales MD Attending Clinician [phone] CARLENE Attending Clinician Unavailable Andreia Attending Clinician Unavailable ARMANDO LOPEZ Attending Clinician Unavail able HI NUNEZ Attending Clinician Unavailable Mónica Marquez MD Attending Clinician [phone] Hi Basilio Attending Clinician [phone] Pob, [facility] Main Attending Clinician UnavailGe Pace DO Attending Clinician [phone] MÓNICA MARQUEZ Admitting Clinician UnavailTAY Lopez Admitting Clinician Unavailable RAMO MURRY Admitting Clinician Unavailab ELISE Espino Admitting Clinician Unavailable LINDY GAUTHIER Admitting Clinician Unavailable TRINITY CRABTREE Admitting Clinician Unavailable Trinity Crabtree MD Admitting Clinician [phone] CARLENE Admitting Clinician Unavailable Andreia Admitting Clinician Unavailable Mónica Marquez MD Admitting Clinician [phone] Payers Payer Name Policy Type Policy Number Effective Date Expirati on Date Source [facility] MEDICAID [id number] 2019 00:00:00 [facility] [id number] 2021 00:00:00 [facility] (MEDICAID REPLACEMENT - HMO) [id number] Problems Condition Name Condition Details Condition Category Status Onset Date Resolution Date Last Treatment Date Treating Clinician Comments Source Vaginal bleeding Vaginal bleeding Disease Active 01-17 00:00: 00 [facility] Incomplete Incomplete Disease Active 01-17 00:00: 00 [facility] Encounter for elective induction of labor Encounter for elective induction of labor Disease Active 8-16 00:00: 00 [facility] Liveborn infant, of faith , born in hospital by vaginal delivery Liveborn , of faith , born in hospital by vaginal delivery Disease Active 8-16 00:00: 00 [facility] Insufficie nt care in third trimester Insufficie nt care in third trimester Disease Active 8-03 00:00: 00 [facility] Rubella non-immune status, antepartum Rubella non-immune status, antepartum Disease Active 8-03 00:00: 00 [facility] Obesity in Obesity in Disease Active 8-03 00:00: 00 [facility] High-risk in third trimester High-risk in third trimester Disease Active 8-03 00:00: 00 [facility] Anemia of mother in , antepartum Anemia of mother in , antepartum Disease Active 8-03 00:00: 00 [facility] GBS (group B Streptococ cus carrier), +RV culture, 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), +RV culture, currently Disease Active 8-03 00:00: 00 [facility] Anemia of mother in , antepartum Anemia of mother in , antepartum Disease Active 8-03 00:00: 00 [facility] Abnormal maternal glucose tolerance, antepartum Abnormal maternal glucose tolerance, antepartum Disease Active 730 00:00: 00 [facility] Anxiety Anxiety Problem Active 2020-10 0-14 00:00: 00 [facility] Attention deficit hyperactiv ity disorder Attention Deficit Hyperactiv ity Disorder Problem Active 2020-10 0-14 00:00: 00 [facility] Closed displaced fracture of proximal phalanx of left ring finger, initial encounter Closed displaced fracture of proximal phalanx of left ring finger, initial encounter Disease Active 8-05 00:00: 00 Overview: Formattin g of this note might be different from the original. Added automatic ally from request for surgery [id number] [facility] Obesity (BMI 30-39.9) Obesity (BMI 30-39.9) Disease Active 717 00:00: 00 [facility] Positive depression screening Positive depression screening Disease Active 02-04 00:00: 00 [facility] History of bipolar disorder History of bipolar disorder Disease Active 02-04 00:00: 00 [facility] Unspecifie d acute lower respirator y infection Unspecifie d acute lower respirator y infection Disease Resolve d 7-30 00:00: 00 2022-05-03 00:00:00 2022-05-03 10:06:24 [facility] Morbid obesity with body mass index of 40.0-49.9 Morbid obesity with body mass index of 40.0-49.9 Disease Resolve d 722 00:00: 00 2022-05-03 00:00:00 2022-05-03 10:06:44 [facility] Anemia, Anemia, Disease Resolve d 7-19 00:00: 00 2022-05-03 00:00:00 2022-05-03 10:05:48 [facility] Back pain affecting in third trimester Back pain affecting in third trimester Disease Resolve d 617 00:00: 00 2022-05-03 00:00:00 2022-05-03 10:05:52 [facility] Trichomona l vaginitis during in third trimester Trichomona l vaginitis during in third trimester Disease Resolve d 02-04 00:00: 00 2022-05-03 00:00:00 2022-05-03 10:05:40 [facility] (normal spontaneou s vaginal delivery) (normal spontaneou s vaginal delivery) Disease Resolve d 0 7-19 00:00: 00 2019-06-04 00:00:00 2019-06-04 15:19:04 [facility] Single live Single live Disease Resolve d 2018-0 7-19 00:00: 00 2019-06-04 00:00:00 2019-06-04 15:19:07 [facility] 39 weeks gestation of 39 weeks gestation of Disease Resolve d 2018-0 7-18 00:00: 00 2019-06-04 00:00:00 2019-06-04 15:19:02 [facility] Labor and delivery indication for care or interventi on Labor and delivery indication for care or interventi on Disease Resolve d 2018-0 7-17 00:00: 00 2019-06-04 00:00:00 2019-06-04 15:19:03 [...] 1 disorder Disease Resolve d 10-08 00:00: 2017-12-03 00:00:00 2017-12-03 14:14:07 [facility] [...] Date Stop Date Quantity Comments Source ASSERTION Not [facility] Gender identity [facility] Alcoholic beverage intake 2025-01-19 00:00:00 2025-01-19 00:00:00 Ex-drinker (finding) [facility] Tobacco use and exposure 2025-01-18 00:00:00 2025-01-18 00:00:00 Smokeless tobacco non-user [facility] Alcohol intake 2023-09-03 00:00:00 2023-09-03 00:00:00 Ex-drinker (finding) [facility] History of Social function 2023-06-22 00:00:00 2023-06-22 00:00:00 [facility] Exposure to SARS-CoV-2 (event) 2022-05-06 00:00:00 2022-05-16 05:36:00 Not sure [facility] Sex assigned at 1995 00:00:00 1995 00:00:00 [facility] Smoking Status Start Date Stop Date Source Former Smoker [facility] Never smoked tobacco [facility] Medications Ordered Medication Name Filled Medication Name Start Date Stop Date Current Medication? Ordering Clinician Indication Dosage Frequency Signature (SIG) Comments Components Source metoclopram soumya HCl (REGLAN) injection 10 mg metoclopram soumya HCl (REGLAN) injection 10 mg 01-18 17:00: 00 01-18 16:56 :00 No 10mg 10 mg, Slow IV Push, Once, 1 dose, On 01/18/25 at 1200, Routine [facility] lactated ringers IV infusion 1,000 mL 01-18 16:45: 00 01-18 18:31 :36 No 1000mL at 42 mL/hr, 1,000 mL, IV Infusion, CONTINUOUS , Starting on Sun01/18/25 at 1145, Until 01/18/25 at 1331, Routine [facility] HYDROcodone -acetaminop hen (NORCO 5) tablet 1 tablet 01-18 16:00: 00 01-18 15:53 :00 No 1{tbl} 1 tablet, Oral, ONCE, 1 dose, On Sun01/18/25 at 1100, Routine, PACU [facility] fentanyl PF (SUBLIMAZE (PF)) injection 25 mcg 01-18 15:48: 07 01-18 16:30 :56 No 25ug 25 mcg, Slow IV Push, Q5MIN PRN, 4 doses, Starting on Sun01/18/25 at 1048, Until 01/18/25 at 1130, Routine, Pain Scale 4-6, PACU [facility] HYDROcodone -acetaminop hen (NORCO 5) tablet 2 tablet HYDROcodone -acetaminop hen (NORCO 5) tablet 2 tablet 01-18 15:37: 41 01-18 18:31 :36 No 2{tbl} 2 tablet, Oral, Q6HPRN, Starting on Sun01/18/25 at 1037, Until 01/18/25 at 1331, Routine, Pain (scale 7-10) [facility] HYDROcodone -acetaminop hen (NORCO 5) tablet 1 tablet 01-18 15:37: 38 01-18 18:31 :36 No 1{tbl} 1 tablet, Oral, Q6HPRN, Starting on Sun01/18/25 at 1037, Until 01/18/25 at 1331, Routine, Pain (scale 4-6) [facility] ibuprofen (IBU) tablet 600 mg ibuprofen (IBU) tablet 600 mg 01-18 15:37: 32 01-18 18:31 :36 No 600mg 600 mg, Oral, Q6HPRN, Starting on Sun01/18/25 at 1037, Until 01/18/25 at 1331, Routine, Pain (scale 1-3) [facility] simethicone (GAS RELIEF (SIMETHICON E)) chewable tablet 160 mg 01-18 14:00: 00 01-18 18:31 :36 No 160mg [facility] acetaminoph en (TYLENOL) tablet 1,000 mg acetaminoph en (TYLENOL) tablet 1,000 mg 01-18 05:00: 00 01-18 18:31 :36 No 1000mg 1,000 mg, Oral, Q8H, First dose (after last modificati on) on 01/18/25 at 0000, Until Discontinu ed, Routine [facility] morpHINE injection 4 mg morpHINE injection 4 mg 01-18 04:21: 00 01-18 06:19 :00 No 4mg 4 mg, Slow IV Push, ONCE, 1 dose, On 01/17/25 at 2330, Routine [facility] ondansetron (ZOFRAN (PF)) injection 4 mg ondansetron (ZOFRAN (PF)) injection 4 mg 01-18 02:54: 27 01-18 15:29 :00 No 4mg 4 mg, Slow IV Push, Q30MIN PRN, 2 doses, Starting on 01/17/25 at 2154, Until 01/18/25 at 1029, 2 mL [facility] FENTanyl (PF) (SUBLIMAZE) injection 50 mcg FENTanyl (PF) (SUBLIMAZE) injection 50 mcg 01-18 02:53: 15 01-18 12:32 :00 No 50ug 50 mcg, Slow IV Push, Q30MIN PRN, 3 doses, Starting on 01/17/25 at 2153, Until 01/18/25 at 0732, PETER, Pain (scale 7-10) [facility] ibuprofen 600 mg tablet 01-18 00:00: 00 Yes [id number] 600mg Take 1 tablet by mouth every 6 (six) hours as needed for Pain (scale 4-6) for up to 14 doses. [facility] acetaminoph en (TYLENOL) 325 mg tablet 20 00:00: 00 Yes [id number] 650mg Take 2 tablets by mouth every 6 (six) hours as needed for Pain (scale 4-6) for up to 14 doses. [facility] oxyCODONE 5 mg immediate release tablet 01-18 00:00: 00 Yes [id number] 5mg Take 1 tablet by mouth every 6 (six) hours as needed for Pain (scale 7-10) for up to 5 doses. Indication s: acute pain [facility] Nitrofurant oin (Macrobid *) 100 Mg CAP Nitrofurant oin (Macrobid *) 100 Mg CAP 19 23:03: 00 Yes 1 [facility] FENTanyl PF (SUBLIMAZE (PF)) injection 75 mcg [...] 03-29 21:15: 00 03-29 21:12 :00 No [id number] 130mL 130 mL, Intravenou s, ONCE, 1 [...] mg EC tablet 03-29 00:00: 00 Yes [id number] 40mg Take 1 tablet by mouth in the morning. [facility] ondansetron 4 mg disintegrat ing tablet 03-29 00:00: 00 Yes [id number] 4mg Take 1 tablet by mouth every 4 (four) hours as needed for Nausea and Vomiting (N/V). [facility] cephALEXin 500 mg capsule 03-29 00:00: 00 04-06 04:59 :00 No [id number] 500mg Take 1 capsule by mouth in the morning and 1 capsule at noon and 1 capsule in the evening. Do all this for 7 days. [facility] buPROPion XL (WELLBUTRIN XL) 150 mg 24 hr tablet 2022-10 10:07: 13 Yes 150mg Take 1 tablet by mouth in the morning. [facility] topiramate 100 mg tablet 2022-10 00:00: 00 Yes [id number] 100mg Take 1 tablet by mouth in [...] 06-22 00:00: 00 07-20 04:59 :00 No [id number] Take 1 tablet by mouth 2 (two) times daily for 7 days, THEN 2 tablets 2 (two) times daily for 21 days. [facility] topiramate 25 mg tablet 06-11 00:00: 00 06-22 00:00 :00 No 25mg Take 1 tablet by mouth in the morning. [facility] proMETHazin e 25 mg tablet 04-16 00:00: 00 Yes TAKE 1 TO 2 [...] at 2330, Until Discontinu ed, Routine, [facility] docusate (COLACE) capsule 200 mg [...] vitamin w/FA tablet 05-17 00:00: 00 Yes [id number] 1{tbl} Take 1 tablet by mouth in the morning. [facility] ibuprofen 600 mg tablet 05-17 00:00: 00 Yes [id number] 600mg Take 1 tablet by mouth every 6 (six) hours as needed (Pain). Take with food or milk. [facility] vitamin w/FA tablet 05-17 00:00: 00 06-22 00:00 :00 No [id number] 1{tbl} Take 1 tablet by mouth in the morning. [facility] docusate 100 mg capsule 05-17 00:00: 00 06-22 00:00 :00 No [id number] 200mg Take 2 capsules by mouth once daily as needed for Constipati on. [facility] ferrous sulfate 325 mg (65 mg iron) tablet 05-17 00:00: 00 06-22 00:00 :00 No [id number] 325mg Take 1 tablet by mouth in [...] TABLET EVERY 6 HOURS FOR 5 DAYS 05-09 00:00: 00 No 500 ondansetron 4 mg disintegrat ing tablet 05-03 00:00: 00 03-29 00:00 :00 No [id number] 4mg Take 1 tablet by mouth every [...] mg tablet No tramadol 50 mg tablet [facility] Xulane 150 mcg-35 mcg/24 hr transdermal patch Apply 1 patch every week by transdermal route. Xulane 150 mcg-35 mcg/24 hr transdermal patch Apply 1 patch every week by transdermal route. No 1patch( es) Q1W Xulane 150 mcg-35 mcg/24 hr transderma l patch Apply 1 patch every week by transderma l route. [facility] Immunizations Ordered Immunization Name Filled Immunization Name Date Status Comments Source TDAP 2024-03-29 14:14:00 Completed [facility] DTAP 2024-03-29 14:14:00 Completed [facility] HIB 4 Dose Schedule 2024-03-29 14:14:00 Completed [facility] HEPATITIS A 2024-03-29 14:14:00 Completed [facility] Hep B, Adol or Pedi Dosage 2024-03-29 14:14:00 Completed [facility] HPV 2024-03-29 14:14:00 Completed [facility] Influenza Virus Vaccine 2024-03-29 14:14:00 Completed [facility] Meningococcal Polysaccharide (groups A, C, Y and W-135) conjugate vaccine (MCV4P) 2024-03-29 14:14:00 Completed [facility] MMR 2024-03-29 14:14:00 Completed [facility] Polio (IPV/OPV) 2024-03-29 14:14:00 Completed [facility] Varicella (varivax)(chicken pox) 2024-03-29 14:14:00 Completed [facility] PPD (TB) 2024-03-29 14:14:00 Completed [facility] TDAP 2023-09-03 11:06:01 Completed [facility] DTAP 2023-09-03 11:06:01 Completed [facility] HIB 4 Dose Schedule 2023-09-03 11:06:01 Completed [facility] HEPATITIS A 2023-09-03 11:06:01 Completed [facility] Hep B, Adol or Pedi Dosage 2023-09-03 11:06:01 Completed [facility] HPV 2023-09-03 11:06:01 Completed [facility] Influenza Virus Vaccine 2023-09-03 11:06:01 Completed [facility] Meningococcal Polysaccharide (groups A, C, Y and W-135) conjugate vaccine (MCV4P) 2023-09-03 11:06:01 Completed [facility] MMR 2023-09-03 11:06:01 Completed [facility] Polio (IPV/OPV) 2023-09-03 11:06:01 Completed [facility] Varicella (varivax)(chicken pox) 2023-09-03 11:06:01 Completed [facility] PPD (TB) 2023-09-03 11:06:01 Completed [facility] TDAP 2023-09-03 10:29:37 Completed [facility] DTAP 2023-09-03 10:29:37 Completed [facility] HIB 4 Dose Schedule 2023-09-03 10:29:37 Completed [facility] HEPATITIS A 2023-09-03 10:29:37 Completed [facility] Hep B, Adol or Pedi Dosage 2023-09-03 10:29:37 Completed [facility] HPV 2023-09-03 10:29:37 Completed [facility] Influenza Virus Vaccine 2023-09-03 10:29:37 Completed [facility] Meningococcal Polysaccharide (groups A, C, Y and W-135) conjugate vaccine (MCV4P) 2023-09-03 10:29:37 Completed [facility] MMR 2023-09-03 10:29:37 Completed [facility] Polio (IPV/OPV) 2023-09-03 10:29:37 Completed [facility] Varicella (varivax)(chicken pox) 2023-09-03 10:29:37 Completed [facility] PPD (TB) 2023-09-03 10:29:37 Completed [facility] TDAP 2023-09-03 10:24:36 Completed [facility] DTAP 2023-09-03 10:24:36 Completed [facility] HIB 4 Dose Schedule 2023-09-03 10:24:36 Completed [facility] HEPATITIS A 2023-09-03 10:24:36 Completed [facility] Hep B, Adol or Pedi Dosage 2023-09-03 10:24:36 Completed [facility] HPV 2023-09-03 10:24:36 Completed [facility] Influenza Virus Vaccine 2023-09-03 10:24:36 Completed [facility] Meningococcal Polysaccharide (groups A, C, Y and W-135) conjugate vaccine (MCV4P) 2023-09-03 10:24:36 Completed [facility] MMR 2023-09-03 10:24:36 Completed [facility] Polio (IPV/OPV) 2023-09-03 10:24:36 Completed [facility] Varicella (varivax)(chicken pox) 2023-09-03 10:24:36 Completed [facility] PPD (TB) 2023-09-03 10:24:36 Completed [facility] TDAP 2023-09-03 10:24:36 Completed [facility] DTAP 2023-09-03 10:24:36 Completed [facility] HIB 4 Dose Schedule 2023-09-03 10:24:36 Completed [facility] HEPATITIS A 2023-09-03 10:24:36 Completed [facility] Hep B, Adol or Pedi Dosage 2023-09-03 10:24:36 Completed [facility] HPV 2023-09-03 10:24:36 Completed [facility] Influenza Virus Vaccine 2023-09-03 10:24:36 Completed [facility] Meningococcal Polysaccharide (groups A, C, Y and W-135) conjugate vaccine (MCV4P) 2023-09-03 10:24:36 Completed [facility] MMR 2023-09-03 10:24:36 Completed [facility] Polio (IPV/OPV) 2023-09-03 10:24:36 Completed [facility] Varicella (varivax)(chicken pox) 2023-09-03 10:24:36 Completed [facility] PPD (TB) 2023-09-03 10:24:36 Completed [facility] TDAP 2023-09-03 10:24:35 Completed [facility] DTAP 2023-09-03 10:24:35 Completed [facility] HIB 4 Dose Schedule 2023-09-03 10:24:35 Completed [facility] HEPATITIS A 2023-09-03 10:24:35 Completed [facility] Hep B, Adol or Pedi Dosage 2023-09-03 10:24:35 Completed [facility] HPV 2023-09-03 10:24:35 Completed [facility] Influenza Virus Vaccine 2023-09-03 10:24:35 Completed [facility] Meningococcal Polysaccharide (groups A, C, Y and W-135) conjugate vaccine (MCV4P) 2023-09-03 10:24:35 Completed [facility] MMR 2023-09-03 10:24:35 Completed [facility] Polio (IPV/OPV) 2023-09-03 10:24:35 Completed [facility] Varicella (varivax)(chicken pox) 2023-09-03 10:24:35 Completed [facility] PPD (TB) 2023-09-03 10:24:35 Completed [facility] Meningococcal Polysaccharide (groups A, C, Y and W-135) conjugate vaccine (MCV4P) 2023-09-03 10:00:00 Completed [facility] PPD (TB) 2023-09-03 10:00:00 Completed [facility] TDAP 2023-09-03 10:00:00 Completed [facility] DTAP 2023-09-03 10:00:00 Completed [facility] HIB 4 Dose Schedule 2023-09-03 10:00:00 Completed [facility] HEPATITIS A 2023-09-03 10:00:00 Completed [facility] Hep B, Adol or Pedi Dosage 2023-09-03 10:00:00 Completed [facility] HPV 2023-09-03 10:00:00 Completed [facility] Influenza Virus Vaccine 2023-09-03 10:00:00 Completed [facility] MMR 2023-09-03 10:00:00 Completed [facility] Polio (IPV/OPV) 2023-09-03 10:00:00 Completed [facility] Varicella (varivax)(chicken pox) 2023-09-03 10:00:00 Completed [facility] DTAP 2023-07-02 00:00:00 Completed [facility] HIB 4 Dose Schedule 2023-07-02 00:00:00 Completed [facility] HEPATITIS A 2023-07-02 00:00:00 Completed [facility] Hep B, Adol or Pedi Dosage 2023-07-02 00:00:00 Completed [facility] HPV 2023-07-02 00:00:00 Completed [facility] Influenza Virus Vaccine 2023-07-02 00:00:00 Completed [facility] Meningococcal Polysaccharide (groups A, C, Y and W-135) conjugate vaccine (MCV4P) 2023-07-02 00:00:00 Completed [facility] MMR 2023-07-02 00:00:00 Completed [facility] Polio (IPV/OPV) 2023-07-02 00:00:00 Completed [facility] Varicella (varivax)(chicken pox) 2023-07-02 00:00:00 Completed [facility] PPD (TB) 2023-07-02 00:00:00 Completed [facility] TDAP 2023-07-02 00:00:00 Completed [facility] DTAP 2023-06-29 09:23:21 Completed [facility] HIB 4 Dose Schedule 2023-06-29 09:23:21 Completed [facility] HEPATITIS A 2023-06-29 09:23:21 Completed [facility] Hep B, Adol or Pedi Dosage 2023-06-29 09:23:21 Completed [facility] HPV 2023-06-29 09:23:21 Completed [facility] Influenza Virus Vaccine 2023-06-29 09:23:21 Completed [facility] Meningococcal Polysaccharide (groups A, C, Y and W-135) conjugate vaccine (MCV4P) 2023-06-29 09:23:21 Completed [facility] MMR 2023-06-29 09:23:21 Completed [facility] Polio (IPV/OPV) 2023-06-29 09:23:21 Completed [facility] Varicella (varivax)(chicken pox) 2023-06-29 09:23:21 Completed [facility] PPD (TB) 2023-06-29 09:23:21 Completed [facility] TDAP 2023-06-29 09:23:21 Completed [facility] DTAP 2023-06-22 15:30:00 Completed [facility] HIB 4 Dose Schedule 2023-06-22 15:30:00 Completed [facility] HEPATITIS A 2023-06-22 15:30:00 Completed [facility] Hep B, Adol or Pedi Dosage 2023-06-22 15:30:00 Completed [facility] HPV 2023-06-22 15:30:00 Completed [facility] Influenza Virus Vaccine 2023-06-22 15:30:00 Completed [facility] Meningococcal Polysaccharide (groups A, C, Y and W-135) conjugate vaccine (MCV4P) 2023-06-22 15:30:00 Completed [facility] MMR 2023-06-22 15:30:00 Completed [facility] Polio (IPV/OPV) 2023-06-22 15:30:00 Completed [facility] Varicella (varivax)(chicken pox) 2023-06-22 15:30:00 Completed [facility] PPD (TB) 2023-06-22 15:30:00 Completed [facility] TDAP 2023-06-22 15:30:00 Completed [facility] DTAP 2023-06-22 00:00:00 Completed [facility] HIB 4 Dose Schedule 2023-06-22 00:00:00 Completed [facility] HEPATITIS A 2023-06-22 00:00:00 Completed [facility] Hep B, Adol or Pedi Dosage 2023-06-22 00:00:00 Completed [facility] HPV 2023-06-22 00:00:00 Completed [facility] Influenza Virus Vaccine 2023-06-22 00:00:00 Completed [facility] Meningococcal Polysaccharide (groups A, C, Y and W-135) conjugate vaccine (MCV4P) 2023-06-22 00:00:00 Completed [facility] MMR 2023-06-22 00:00:00 Completed [facility] Polio (IPV/OPV) 2023-06-22 00:00:00 Completed [facility] Varicella (varivax)(chicken pox) 2023-06-22 00:00:00 Completed [facility] PPD (TB) 2023-06-22 00:00:00 Completed [facility] TDAP 2023-06-22 00:00:00 Completed [facility] TDAP 2019-02-04 00:00:00 Completed [facility] TDAP 2019-02-04 00:00:00 Completed [facility] TDAP 2019-02-04 00:00:00 Completed [facility] TDAP 2019-02-04 00:00:00 Completed [facility] TDAP 2019-02-04 00:00:00 Completed [facility] TDAP 2019-02-04 00:00:00 Completed [facility] TDAP 2019-02-04 00:00:00 Completed [facility] TDAP 2019-02-04 00:00:00 Completed [facility] TDAP 2017-10-29 00:00:00 Completed [facility] TDAP 2017-10-29 00:00:00 Completed [facility] TDAP 2017-10-29 00:00:00 Completed [facility] TDAP 2017-10-29 00:00:00 Completed [facility] TDAP 2017-10-29 00:00:00 Completed [facility] TDAP 2017-10-29 00:00:00 Completed [facility] TDAP 2017-10-29 00:00:00 Completed [facility] TDAP 2017-10-29 00:00:00 Completed [facility] PPD (TB) 2013-12-22 00:00:00 Completed [facility] PPD (TB) 2013-12-22 00:00:00 Completed [facility] PPD (TB) 2013-12-22 00:00:00 Completed [facility] PPD (TB) 2013-12-22 00:00:00 Completed [facility] PPD (TB) 2013-12-22 00:00:00 Completed [facility] PPD (TB) 2013-12-22 00:00:00 Completed [facility] PPD (TB) 2013-12-22 00:00:00 Completed [facility] HPV 2011-12-21 00:00:00 Completed [facility] HPV 2011-12-21 00:00:00 Completed [facility] HPV 2011-12-21 00:00:00 Completed [facility] HPV 2011-12-21 00:00:00 Completed [facility] HPV 2011-12-21 00:00:00 Completed [facility] HPV 2011-12-21 00:00:00 Completed [facility] HPV 2011-12-21 00:00:00 Completed [facility] HPV 2011-12-21 00:00:00 Completed HPV 2011-06-29 00:00:00 Completed [facility] Influenza Virus Vaccine 2011-06-29 00:00:00 Completed [facility] HPV 2011-06-29 00:00:00 Completed [facility] Influenza Virus Vaccine 2011-06-29 00:00:00 Completed [facility] HPV 2011-06-29 00:00:00 Completed [facility] Influenza Virus Vaccine 2011-06-29 00:00:00 Completed [facility] HPV 2011-06-29 00:00:00 Completed [facility] Influenza Virus Vaccine 2011-06-29 00:00:00 Completed [facility] HPV 2011-06-29 00:00:00 Completed [facility] Influenza Virus Vaccine 2011-06-29 00:00:00 Completed [facility] HPV 2011-06-29 00:00:00 Completed [facility] Influenza Virus Vaccine 2011-06-29 00:00:00 Completed [facility] HPV 2011-06-29 00:00:00 Completed [facility] Influenza Virus Vaccine 2011-06-29 00:00:00 Completed [facility] HPV 2011-06-29 00:00:00 Completed Influenza Virus Vaccine 2011-06-29 00:00:00 Completed TDAP 2010-10-01 00:00:00 Completed [facility] TDAP 2010-10-01 00:00:00 Completed [facility] TDAP 2010-10-01 00:00:00 Completed [facility] TDAP 2010-10-01 00:00:00 Completed [facility] TDAP 2010-10-01 00:00:00 Completed [facility] TDAP 2010-10-01 00:00:00 Completed [facility] TDAP 2010-10-01 00:00:00 Completed [facility] HPV 2010-07-22 00:00:00 Completed [facility] Influenza Virus Vaccine 2010-07-22 00:00:00 Completed [facility] HPV 2010-07-22 00:00:00 Completed [facility] Influenza Virus Vaccine 2010-07-22 00:00:00 Completed [facility] HPV 2010-07-22 00:00:00 Completed [facility] Influenza Virus Vaccine 2010-07-22 00:00:00 Completed [facility] HPV 2010-07-22 00:00:00 Completed [facility] Influenza Virus Vaccine 2010-07-22 00:00:00 Completed [facility] HPV 2010-07-22 00:00:00 Completed [facility] Influenza Virus Vaccine 2010-07-22 00:00:00 Completed [facility] HPV 2010-07-22 00:00:00 Completed [facility] Influenza Virus Vaccine 2010-07-22 00:00:00 Completed [facility] HPV 2010-07-22 00:00:00 Completed [facility] Influenza Virus Vaccine 2010-07-22 00:00:00 Completed [facility] HPV 2010-07-22 00:00:00 Completed Influenza Virus Vaccine 2010-07-22 00:00:00 Completed HPV 2009-09-13 00:00:00 Completed [facility] Influenza Virus Vaccine 2009-09-13 00:00:00 Completed [facility] HPV 2009-09-13 00:00:00 Completed [facility] Influenza Virus Vaccine 2009-09-13 00:00:00 Completed [facility] HPV 2009-09-13 00:00:00 Completed [facility] Influenza Virus Vaccine 2009-09-13 00:00:00 Completed [facility] HPV 2009-09-13 00:00:00 Completed [facility] Influenza Virus Vaccine 2009-09-13 00:00:00 Completed [facility] HPV 2009-09-13 00:00:00 Completed [facility] Influenza Virus Vaccine 2009-09-13 00:00:00 Completed [facility] HPV 2009-09-13 00:00:00 Completed [facility] Influenza Virus Vaccine 2009-09-13 00:00:00 Completed [facility] HPV 2009-09-13 00:00:00 Completed [facility] Influenza Virus Vaccine 2009-09-13 00:00:00 Completed [facility] Influenza Virus Vaccine 2009-09-13 00:00:00 Completed DTAP 2008-09-10 00:00:00 Completed [facility] HEPATITIS A 2008-09-10 00:00:00 Completed [facility] Meningococcal Polysaccharide (groups A, C, Y and W-135) conjugate vaccine (MCV4P) 2008-09-10 00:00:00 Completed [facility] DTAP 2008-09-10 00:00:00 Completed [facility] HEPATITIS A 2008-09-10 00:00:00 Completed [facility] Meningococcal Polysaccharide (groups A, C, Y and W-135) conjugate vaccine (MCV4P) 2008-09-10 00:00:00 Completed [facility] DTAP 2008-09-10 00:00:00 Completed [facility] HEPATITIS A 2008-09-10 00:00:00 Completed [facility] Meningococcal Polysaccharide (groups A, C, Y and W-135) conjugate vaccine (MCV4P) 2008-09-10 00:00:00 Completed [facility] DTAP 2008-09-10 00:00:00 Completed [facility] HEPATITIS A 2008-09-10 00:00:00 Completed [facility] Meningococcal Polysaccharide (groups A, C, Y and W-135) conjugate vaccine (MCV4P) 2008-09-10 00:00:00 Completed [facility] DTAP 2008-09-10 00:00:00 Completed [facility] HEPATITIS A 2008-09-10 00:00:00 Completed [facility] Meningococcal Polysaccharide (groups A, C, Y and W-135) conjugate vaccine (MCV4P) 2008-09-10 00:00:00 Completed [facility] DTAP 2008-09-10 00:00:00 Completed [facility] HEPATITIS A 2008-09-10 00:00:00 Completed [facility] Meningococcal Polysaccharide (groups A, C, Y and W-135) conjugate vaccine (MCV4P) 2008-09-10 00:00:00 Completed [facility] DTAP 2008-09-10 00:00:00 Completed [facility] HEPATITIS A 2008-09-10 00:00:00 Completed [facility] Meningococcal Polysaccharide (groups A, C, Y and W-135) conjugate vaccine (MCV4P) 2008-09-10 00:00:00 Completed [facility] DTAP 2008-09-10 00:00:00 Completed HEPATITIS A 2008-09-10 00:00:00 Completed HEPATITIS A 2007-08-28 00:00:00 Completed [facility] Influenza Virus Vaccine 2007-08-28 00:00:00 Completed [facility] Varicella (varivax)(chicken pox) 2007-08-28 00:00:00 Completed [facility] HEPATITIS A 2007-08-28 00:00:00 Completed [facility] Influenza Virus Vaccine 2007-08-28 00:00:00 Completed [facility] Varicella (varivax)(chicken pox) 2007-08-28 00:00:00 Completed [facility] HEPATITIS A 2007-08-28 00:00:00 Completed [facility] Influenza Virus Vaccine 2007-08-28 00:00:00 Completed [facility] Varicella (varivax)(chicken pox) 2007-08-28 00:00:00 Completed [facility] HEPATITIS A 2007-08-28 00:00:00 Completed [facility] Influenza Virus Vaccine 2007-08-28 00:00:00 Completed [facility] Varicella (varivax)(chicken pox) 2007-08-28 00:00:00 Completed [facility] HEPATITIS A 2007-08-28 00:00:00 Completed [facility] Influenza Virus Vaccine 2007-08-28 00:00:00 Completed [facility] Varicella (varivax)(chicken pox) 2007-08-28 00:00:00 Completed [facility] HEPATITIS A 2007-08-28 00:00:00 Completed [facility] Influenza Virus Vaccine 2007-08-28 00:00:00 Completed [facility] Varicella (varivax)(chicken pox) 2007-08-28 00:00:00 Completed [facility] HEPATITIS A 2007-08-28 00:00:00 Completed [facility] Influenza Virus Vaccine 2007-08-28 00:00:00 Completed [facility] Varicella (varivax)(chicken pox) 2007-08-28 00:00:00 Completed [facility] Varicella (varivax)(chicken pox) 2007-08-28 00:00:00 Completed DTAP 2001-08-31 00:00:00 Completed [facility] HIB 4 Dose Schedule 2001-08-31 00:00:00 Completed [facility] Polio (IPV/OPV) 2001-08-31 00:00:00 Completed [facility] DTAP 2001-08-31 00:00:00 Completed [facility] HIB 4 Dose Schedule 2001-08-31 00:00:00 Completed [facility] Polio (IPV/OPV) 2001-08-31 00:00:00 Completed [facility] DTAP 2001-08-31 00:00:00 Completed [facility] HIB 4 Dose Schedule 2001-08-31 00:00:00 Completed [facility] Polio (IPV/OPV) 2001-08-31 00:00:00 Completed [facility] DTAP 2001-08-31 00:00:00 Completed [facility] HIB 4 Dose Schedule 2001-08-31 00:00:00 Completed [facility] Polio (IPV/OPV) 2001-08-31 00:00:00 Completed [facility] DTAP 2001-08-31 00:00:00 Completed [facility] HIB 4 Dose Schedule 2001-08-31 00:00:00 Completed [facility] Polio (IPV/OPV) 2001-08-31 00:00:00 Completed [facility] DTAP 2001-08-31 00:00:00 Completed [facility] HIB 4 Dose Schedule 2001-08-31 00:00:00 Completed [facility] Polio (IPV/OPV) 2001-08-31 00:00:00 Completed [facility] DTAP 2001-08-31 00:00:00 Completed [facility] HIB 4 Dose Schedule 2001-08-31 00:00:00 Completed [facility] Polio (IPV/OPV) 2001-08-31 00:00:00 Completed [facility] DTAP 2001-08-31 00:00:00 Completed HIB 4 Dose Schedule 2001-08-31 00:00:00 Completed Polio (IPV/OPV) 2001-08-31 00:00:00 Completed DTAP 2001-04-23 00:00:00 Completed [facility] HIB 4 Dose Schedule 2001-04-23 00:00:00 Completed [facility] Polio (IPV/OPV) 2001-04-23 00:00:00 Completed [facility] DTAP 2001-04-23 00:00:00 Completed [facility] HIB 4 Dose Schedule 2001-04-23 00:00:00 Completed [facility] Polio (IPV/OPV) 2001-04-23 00:00:00 Completed [facility] DTAP 2001-04-23 00:00:00 Completed [facility] HIB 4 Dose Schedule 2001-04-23 00:00:00 Completed [facility] Polio (IPV/OPV) 2001-04-23 00:00:00 Completed [facility] DTAP 2001-04-23 00:00:00 Completed [facility] HIB 4 Dose Schedule 2001-04-23 00:00:00 Completed [facility] Polio (IPV/OPV) 2001-04-23 00:00:00 Completed [facility] DTAP 2001-04-23 00:00:00 Completed [facility] HIB 4 Dose Schedule 2001-04-23 00:00:00 Completed [facility] Polio (IPV/OPV) 2001-04-23 00:00:00 Completed [facility] DTAP 2001-04-23 00:00:00 Completed [facility] HIB 4 Dose Schedule 2001-04-23 00:00:00 Completed [facility] Polio (IPV/OPV) 2001-04-23 00:00:00 Completed [facility] DTAP 2001-04-23 00:00:00 Completed [facility] HIB 4 Dose Schedule 2001-04-23 00:00:00 Completed [facility] Polio (IPV/OPV) 2001-04-23 00:00:00 Completed [facility] DTAP 2001-04-23 00:00:00 Completed HIB 4 Dose Schedule 2001-04-23 00:00:00 Completed Polio (IPV/OPV) 2001-04-23 00:00:00 Completed MMR 1999-08-31 00:00:00 Completed [facility] MMR 1999-08-31 00:00:00 Completed [facility] MMR 1999-08-31 00:00:00 Completed [facility] MMR 1999-08-31 00:00:00 Completed [facility] MMR 1999-08-31 00:00:00 Completed [facility] MMR 1999-08-31 00:00:00 Completed [facility] MMR 1999-08-31 00:00:00 Completed [facility] MMR 1999-08-31 00:00:00 Completed HIB 4 Dose Schedule 1999-05-02 00:00:00 Completed [facility] Hep B, Adol or Pedi Dosage 1999-05-02 00:00:00 Completed [facility] Polio (IPV/OPV) 1999-05-02 00:00:00 Completed [facility] DTAP 1999-05-02 00:00:00 Completed [facility] HIB 4 Dose Schedule 1999-05-02 00:00:00 Completed [facility] Hep B, Adol or Pedi Dosage 1999-05-02 00:00:00 Completed [facility] Polio (IPV/OPV) 1999-05-02 00:00:00 Completed [facility] DTAP 1999-05-02 00:00:00 Completed [facility] HIB 4 Dose Schedule 1999-05-02 00:00:00 Completed [facility] Hep B, Adol or Pedi Dosage 1999-05-02 00:00:00 Completed [facility] Polio (IPV/OPV) 1999-05-02 00:00:00 Completed [facility] DTAP 1999-05-02 00:00:00 Completed [facility] HIB 4 Dose Schedule 1999-05-02 00:00:00 Completed [facility] Hep B, Adol or Pedi Dosage 1999-05-02 00:00:00 Completed [facility] Polio (IPV/OPV) 1999-05-02 00:00:00 Completed [facility] DTAP 1999-05-02 00:00:00 Completed HIB 4 Dose Schedule 1999-05-02 00:00:00 Completed Hep B, Adol or Pedi Dosage 1999-05-02 00:00:00 Completed Polio (IPV/OPV) 1999-05-02 00:00:00 Completed DTAP 1999-05-02 00:00:00 Completed [facility] HIB 4 Dose Schedule 1999-05-02 00:00:00 Completed [facility] Hep B, Adol or Pedi Dosage 1999-05-02 00:00:00 Completed [facility] Polio (IPV/OPV) 1999-05-02 00:00:00 Completed [facility] DTAP 1999-05-02 00:00:00 Completed [facility] HIB 4 Dose Schedule 1999-05-02 00:00:00 Completed [facility] Hep B, Adol or Pedi Dosage 1999-05-02 00:00:00 Completed [facility] Polio (IPV/OPV) 1999-05-02 00:00:00 Completed [facility] DTAP 1999-05-02 00:00:00 Completed [facility] HIB 4 Dose Schedule 1999-05-02 00:00:00 Completed [facility] Hep B, Adol or Pedi Dosage 1999-05-02 00:00:00 Completed [facility] Polio (IPV/OPV) 1999-05-02 00:00:00 Completed [facility] DTAP 1999-05-02 00:00:00 Completed [facility] DTAP 1998-12-15 00:00:00 Completed [facility] HIB 4 Dose Schedule 1998-12-15 00:00:00 Completed [facility] Hep B, Adol or Pedi Dosage 1998-12-15 00:00:00 Completed [facility] MMR 1998-12-15 00:00:00 Completed [facility] Polio (IPV/OPV) 1998-12-15 00:00:00 Completed [facility] Varicella (varivax)(chicken pox) 1998-12-15 00:00:00 Completed [facility] DTAP 1998-12-15 00:00:00 Completed [facility] HIB 4 Dose Schedule 1998-12-15 00:00:00 Completed [facility] Hep B, Adol or Pedi Dosage 1998-12-15 00:00:00 Completed [facility] MMR 1998-12-15 00:00:00 Completed [facility] Polio (IPV/OPV) 1998-12-15 00:00:00 Completed [facility] Varicella (varivax)(chicken pox) 1998-12-15 00:00:00 Completed [facility] DTAP 1998-12-15 00:00:00 Completed [facility] HIB 4 Dose Schedule 1998-12-15 00:00:00 Completed [facility] Hep B, Adol or Pedi Dosage 1998-12-15 00:00:00 Completed [facility] MMR 1998-12-15 00:00:00 Completed [facility] Polio (IPV/OPV) 1998-12-15 00:00:00 Completed [facility] Varicella (varivax)(chicken pox) 1998-12-15 00:00:00 Completed [facility] DTAP 1998-12-15 00:00:00 Completed [facility] HIB 4 Dose Schedule 1998-12-15 00:00:00 Completed [facility] Hep B, Adol or Pedi Dosage 1998-12-15 00:00:00 Completed [facility] MMR 1998-12-15 00:00:00 Completed [facility] Polio (IPV/OPV) 1998-12-15 00:00:00 Completed [facility] Varicella (varivax)(chicken pox) 1998-12-15 00:00:00 Completed [facility] DTAP 1998-12-15 00:00:00 Completed [facility] HIB 4 Dose Schedule 1998-12-15 00:00:00 Completed [facility] Hep B, Adol or Pedi Dosage 1998-12-15 00:00:00 Completed [facility] MMR 1998-12-15 00:00:00 Completed [facility] Polio (IPV/OPV) 1998-12-15 00:00:00 Completed [facility] Varicella (varivax)(chicken pox) 1998-12-15 00:00:00 Completed [facility] DTAP 1998-12-15 00:00:00 Completed [facility] HIB 4 Dose Schedule 1998-12-15 00:00:00 Completed [facility] Hep B, Adol or Pedi Dosage 1998-12-15 00:00:00 Completed [facility] MMR 1998-12-15 00:00:00 Completed [facility] Polio (IPV/OPV) 1998-12-15 00:00:00 Completed [facility] Varicella (varivax)(chicken pox) 1998-12-15 00:00:00 Completed [facility] DTAP 1998-12-15 00:00:00 Completed [facility] HIB 4 Dose Schedule 1998-12-15 00:00:00 Completed [facility] Hep B, Adol or Pedi Dosage 1998-12-15 00:00:00 Completed [facility] MMR 1998-12-15 00:00:00 Completed [facility] Polio (IPV/OPV) 1998-12-15 00:00:00 Completed [facility] Varicella (varivax)(chicken pox) 1998-12-15 00:00:00 Completed [facility] DTAP 1998-12-15 00:00:00 Completed Hep B, Adol or Pedi Dosage 1998-12-15 00:00:00 Completed Polio (IPV/OPV) 1998-12-15 00:00:00 Completed DTAP 1997 00:00:00 Completed [facility] Hep B, Adol or Pedi Dosage 1997 00:00:00 Completed [facility] Polio (IPV/OPV) 1997 00:00:00 Completed [facility] DTAP 1997 00:00:00 Completed [facility] Hep B, Adol or Pedi Dosage 1997 00:00:00 Completed [facility] Polio (IPV/OPV) 1997 00:00:00 Completed [facility] DTAP 1997 00:00:00 Completed [facility] Hep B, Adol or Pedi Dosage 1997 00:00:00 Completed [facility] Polio (IPV/OPV) 1997 00:00:00 Completed [facility] DTAP 1997 00:00:00 Completed [facility] Hep B, Adol or Pedi Dosage 1997 00:00:00 Completed [facility] Polio (IPV/OPV) 1997 00:00:00 Completed [facility] DTAP 1997 00:00:00 Completed [facility] Hep B, Adol or Pedi Dosage 1997 00:00:00 Completed [facility] Polio (IPV/OPV) 1997 00:00:00 Completed [facility] DTAP 1997 00:00:00 Completed [facility] Hep B, Adol or Pedi Dosage 1997 00:00:00 Completed [facility] Polio (IPV/OPV) 1997 00:00:00 Completed [facility] DTAP 1997 00:00:00 Completed [facility] Hep B, Adol or Pedi Dosage 1997 00:00:00 Completed [facility] Polio (IPV/OPV) 1997 00:00:00 Completed [facility] Hep B, Adol or Pedi Dosage 1997 00:00:00 Completed Hep B, Adol or Pedi Dosage 1997 00:00:00 Completed [facility] Hep B, Adol or Pedi Dosage 1997 00:00:00 Completed [facility] Hep B, Adol or Pedi Dosage 1997 00:00:00 Completed [facility] Hep B, Adol or Pedi Dosage 1997 00:00:00 Completed [facility] Hep B, Adol or Pedi Dosage 1997 00:00:00 Completed [facility] Hep B, Adol or Pedi Dosage 1997 00:00:00 Completed [facility] Hep B, Adol or Pedi Dosage 1997 00:00:00 Completed [facility] Vital Signs Vital Name Observation Time Observation Value Comments S ource Heart rate 2025-01-18 16:26:00 78 /min [facility] Oxygen saturation in Arterial blood by Pulse oximetry 2025-01-18 16:26:00 96 /min [facility] Respiratory rate 2025-01-18 16:19:00 15 /min [facility] Systolic blood pressure 2025-01-18 16:15:00 105 mm[Hg] [facility] Diastolic blood pressure 2025-01-18 16:15:00 61 mm[Hg] [facility] Body temperature 2025-01-18 15:52:00 36 Julieta [facility] Body height 2025-01-18 06:30:00 165.1 cm [facility] Body weight 2025-01-18 06:30:00 104.3 kg [facility] BMI 2025-01-18 06:30:00 38.26 kg/m2 [facility] Systolic blood pressure 2025-01-18 12:45:00 93 mm[Hg] [facility] Diastolic blood pressure 2025-01-18 12:45:00 50 mm[Hg] [facility] Heart rate 2025-01-18 12:45:00 71 /min [facility] Body temperature 2025-01-18 12:45:00 36.22 Julieta [facility] Respiratory rate 2025-01-18 12:45:00 16 /min [facility] Oxygen saturation in Arterial blood by Pulse oximetry 2025-01-18 12:45:00 96 /min [facility] Body height 2025-01-18 06:30:00 165.1 cm [facility] Body weight 2025-01-18 06:30:00 104.3 kg [facility] BMI 2025-01-18 06:30:00 38.26 kg/m2 [facility] Height 2024-12-17 18:49:[address] [facility] Weight 2024-12-17 18:49:[address] [facility] BMI (Body Mass Index) 2024-12-17 18:49:00 38.3 kg/m2 [facility] Systolic blood pressure 2024-03-29 22:25:00 125 mm[Hg] [facility] Diastolic blood pressure 2024-03-29 22:25:00 76 mm[Hg] [facility] Heart rate 2024-03-29 22:25:00 73 /min [facility] Body temperature 2024-03-29 22:25:00 37.17 Julieta [facility] Respiratory rate 2024-03-29 22:25:00 16 /min [facility] Oxygen saturation in Arterial blood by Pulse oximetry 2024-03-29 22:25:00 100 /min [facility] Body height 2024-03-29 19:17:00 165.1 cm [facility] Body weight 2024-03-29 19:17:00 104.327 kg [facility] BMI 2024-03-29 19:17:00 38.27 kg/m2 [facility] Systolic blood pressure 2023-09-03 16:05:00 114 mm[Hg] [facility] Diastolic blood pressure 2023-09-03 16:05:00 71 mm[Hg] [facility] Heart rate 2023-09-03 16:05:00 90 /min [facility] Body height 2023-09-03 16:05:00 165.1 cm [facility] Body weight 2023-09-03 16:05:00 116.121 kg [facility] BMI 2023-09-03 16:05:00 42.60 kg/m2 [facility] Oxygen saturation in Arterial blood by Pulse oximetry 2023-09-03 16:05:00 100 /min [facility] Systolic blood pressure 2023-06-22 20:32:00 121 mm[Hg] [facility] Diastolic blood pressure 2023-06-22 20:32:00 84 mm[Hg] [facility] Heart rate 2023-06-22 20:32:00 91 /min [facility] Body height 2023-06-22 20:32:00 165.1 cm [facility] Body weight 2023-06-22 20:32:00 108.364 kg [facility] BMI 2023-06-22 20:32:00 39.76 kg/m2 [facility] Oxygen saturation in Arterial blood by Pulse oximetry 2023-06-22 20:32:00 99 /min [facility] Systolic blood pressure 2022-05-18 12:47:00 131 mm[Hg] [facility] Diastolic blood pressure 2022-05-18 12:47:00 73 mm[Hg] [facility] Heart rate 2022-05-18 12:47:00 81 /min [facility] Body temperature 2022-05-18 12:47:00 36.11 Julieta [facility] Respiratory rate 2022-05-18 12:47:00 16 /min [facility] Oxygen saturation in Arterial blood by Pulse oximetry 2022-05-18 12:47:00 100 /min [facility] Body height 2022-05-16 09:53:00 167.6 cm [facility] Body weight 2022-05-16 09:53:00 114.397 kg [facility] BMI 2022-05-16 09:53:00 40.71 kg/m2 [facility] Height 2021-07-14 00:00:00 65 [in_i] Matag orda [facility] BMI (Body Mass Index) 2021-07-14 00:00:00 38.3 kg/m2 Lindsey [facility] Body Weight 2021-07-14 00:00:00 230 [lb_av] Sundeep ortega [facility] BP Diastolic 2019-11-11 00:00:00 87 mm[Hg] Sundeep ortega [facility] Height 2019-11-11 00:00:00 65 [in_i] Vincenzo villa [facility] BMI (Body Mass Index) 2019-11-11 00:00:00 30.8 kg/m2 Lindsey [facility] BP Systolic 2019-11-11 00:00:00 146 mm[Hg] Darshan macdonald [facility] Body Weight 2019-11-11 00:00:00 185 [lb_av] Sundeep ortega [facility] BP Systolic 2022-04-10 11:35:00 [...] Procedures Procedure Date / Time Performed Performing Clinician Source DILATION AND CURETTAGE 2025-01-18 14:21:00 Matias Arnold [facility] PELVIS COMPLETE WITH TRANSVAGINAL 2025-01-18 04:54:08 Jenna Canchola [facility] TOTAL BETA HCG ASSAY 2025-01-18 03:01:00 Teresa Quijano [facility] CBC WITH DIFF 2025-01-18 03:01:00 Gualberto Lopez [facility] HB ABO GROUPING 2025-01-18 03:01:00 Gualberto Lopez [facility] EXTRA TUBE LT. BLUE 2025-01-18 03:01:00 Mukesh Lopez [facility] EXTRA TUBE ORANGE 2025-01-18 03:01:00 Makayla Lopez [facility] TOTAL BETA HCG ASSAY 2025-01-18 03:01:00 Teresa Quijano [facility] CBC WITH DIFF 2025-01-18 03:01:00 Gualberto Lopez [facility] HB ABO GROUPING 2025-01-18 03:01:00 Gualberto Lopez [facility] EXTRA TUBE LT. BLUE 2025-01-18 03:01:00 Mukesh Lopez [facility] EXTRA TUBE ORANGE 2025-01-18 03:01:00 Makayla Lopez [facility] CT ANGIOGRAM ABDOMEN/PELVIS 2024-03-29 21:27:48 Elise Irby [facility] POCT TEST 2024-03-29 19:46:00 Silke Irby [facility] LIPASE 2024-03-29 19:44:00 Elise Irby [facility] COMP. METABOLIC PANEL ([id number]) 2024-03-29 19:44:00 Elise Irby [facility] CBC WITH DIFF 2024-03-29 19:44:00 Elise Irby [facility] URINALYSIS 2024-03-29 19:44:00 [facility] X[facility] SCOLIOSIS SURVEY 2 VW 2023-09-03 17:47:22 Lindy Gauthier [facility] CT HEAD WO CONTRAST 2023-06-29 14:33:00 Lindy Gauthier [facility] ASSIGNMENT OF BENEFITS 2023-06-22 20:24:02 Docto r Unassigned, [place] [facility] EXTERNAL PROVIDER RECORDS 2022-05-22 05:01:00 Doctor Unassigned, [place] [facility] CBC WITH DIFF 2022-05-17 09:41:00 Adum, [facility] EXTERNAL PROVIDER RECORDS 2022-05-17 05:01:00 Doctor Unassigned, [place] [facility] CENTRAL NEURAXIAL BLOCK 2022-05-16 22:11:38 Jessy Argueta [facility] CENTRAL NEURAXIAL BLOCK 2022-05-16 19:35:58 Bhupinder Pike [facility] CBC WITH DIFF 2022-05-16 10:27:00 Adum, [facility] RUBELLA SCREEN IGG 2022-05-16 10:27:00 Adum, Trinity Alvarez [facility] HEPATITIS B SURFACE ANTIGEN 2022-05-16 10:27:00 Adum, Trinity Alvarez [facility] ADC OR KAMILLA ONLY - RPR 2022-05-16 10:27:00 Adum, Trinity Alvarez [facility] HB ABO GROUPING 2022-05-16 10:20:00 Adum, Trinity Gauthier [facility] ADMISSION 2022-05-16 05:01:00 Doctor Un assigned, [place] [facility] Plan of Care Planned Activity Planned Date Details Comments Source Diagnostic Test Pending 2021-07-14 00:00:00 CMP, serum or plasma [code = CMP, serum or plasma] [facility] Program Diagnostic Test Pending 2021-07-14 00:00:00 CBC w/ auto diff [code = CBC w/ auto diff] [facility] Diagnostic Test Pending 2021-07-14 00:00:00 cytology report, thin prep, smear or scraping, cervical or vaginal [code = cytology report, thin prep, smear or scraping, cervical or vaginal] [facility] Diagnostic Test Pending 2021-07-14 00:00:00 HIV 1+2 AB + HIV 1 p24 Ag, qualitative immunoassay, serum [code = HIV 1+2 AB + HIV 1 p24 Ag, qualitative immunoassay, serum] [facility] Diagnostic Test Pending 2021-07-14 00:00:00 HBsAg (hepatitis B surface Ag), EIA, serum [code = HBsAg (hepatitis B surface Ag), EIA, serum] [facility] Diagnostic Test Pending 2021-07-14 00:00:00 RPR (rapid plasma reagin), serum [code = RPR (rapid plasma reagin), serum] [facility] Diagnostic Test Pending 2021-07-14 00:00:00 TSH + free T4, serum [code = TSH + free T4, serum] [facility] Diagnostic Test Pending 2021-07-14 00:00:00 lipid panel, serum [code = lipid panel, serum] [facility] Diagnostic Test Pending 2021-07-14 00:00:00 test, urine [code = test, urine] [facility] Goal Plan of Care Not e [code = 62943-8] Goal Plan of Care Not e [code = 09191-6] Goal Plan of Care Not e [code = 91663-5] Goal Plan of Care Not e [code = 05058-0] Goal Plan of Care Not e [code = 18484-1] Goal Plan of Care Not e [code = 61225-5] Goal Plan of Care Not e [code = 05609-8] Goal Plan of Care Not e [code = 91751-5] Goal Plan of Care Not e [code = 56354-4] Goal Plan of Care Not e [code = 10197-7] Goal Plan of Care Not e [code = 13249-5] Encounters Start Date/Time End Date/Time Encounter Type Admission Type Attending Clinicians Care Facility Care Department Encounter ID Source 2022-08-18 13:58:57 [id number] [facility] 2021-08-01 14:01:22 Outpatient MÓNICA HUNT [facility] [id number] [facility] 2021-08-01 13:27:01 Outpatient MÓNICA HUNT [facility] [id number] [facility] 2021-07-30 15:31:43 Emergency [facility] [id number] [facility] 2025-01-23 00:00:00 2025-01-23 13:02:02 Case Management Sushant Jenna [facility] ([place] 1.2.840.114 350.1.13.10 4.2.7.2.686 [id number] [facility] 2025-01-17 21:09:00 2025-01-18 13:31:00 Outpatient X TAY ARNOLD RYAN [facility] [id number] [facility] 2025-01-17 21:09:00 2025-01-18 13:31:00 Hospital Encounter X TAY ARNOLD RYAN [facility] [id number] [facility] 2025-01-18 09:00:00 2025-01-18 10:31:00 Surgery Tay Arnold [facility] ([place]) 1.2.840.114 350.1.13.10 4.2.7.2.686 [id number] [facility] 2024-12-18 18:12:00 2024-12-18 23:13:00 Emergency X ELISE IRBY DONNELL [facility] ERT [id number] [facility] 2024-12-17 18:35:00 2024-12-17 23:12:00 Emergency ER CIARA TOLENTINO [facility] [id number] [facility] 2024-12-17 18:35:00 2024-12-17 23:12:00 Departed Emergency Room [facility] [id number] [facility] 2024-03-29 14:14:00 2024-03-29 17:58:00 Emergency X ELISE IRBY DONNELL [facility] ERT [id number] [facility] 2024-03-29 14:14:00 2024-03-29 17:58:00 Emergency Elise Irby [facility] 1.2.840.114 350.1.13.10 4.2.7.2.686 [id number] [facility] 2023-10-11 10:00:00 2023-10-11 10:00:00 Outpatient LINDY ANDERS [facility] [id number] [facility] 2023-10-04 10:00:00 2023-10-04 10:00:00 [id number] 2023-09-03 11:06:01 2023-09-03 23:59:00 Hospital Encounter Frantz Gauthierssica [facility] 1.2.840.114 350.1.13.10 4.2.7.2.686 [id number] [facility] 2023-09-03 10:29:37 2023-09-03 11:05:00 Hospital Encounter [facility] FERNANDEZ?[facility] 1.2.840.114 350.1.13.10 4.2.7.2.686 [id number] [facility] 2023-09-03 10:24:36 2023-09-03 10:28:00 Outpatient R LINDY GAUTHIER [facility] [id number] [facility] 2023-09-03 10:24:36 2023-09-03 10:28:00 Hospital Encounter Abrahan [facility] FERNANDEZ?JUDITHTheresa [facility] 1.2.840.114 350.1.13.10 4.2.7.2.686 [id number] [facility] 2023-09-03 10:24:36 2023-09-03 10:28:00 Hospital Encounter [facility]antz [facility] hospital FERNANDEZ?[facility] 1.2.840.114 350.1.13.10 4.2.7.2.686 [id number] [facility] 2023-09-03 10:24:35 2023-09-03 10:28:00 Hospital Encounter Frantz [facility]Critical access hospital FERNANDEZ?[facility] 1.2.840.114 350.1.13.10 4.2.7.2.686 [id number] [facility] 2023-09-03 10:00:00 2023-09-03 10:23:38 [facility] 1.2.840.114 350.1.13.10 4.2.7.2.686 [id number] [facility] 2023-07-02 00:00:00 2023-07-02 00:00:00 Telephone Abrahan [facility] FERNANDEZ?[facility] 1.2.840.114 350.1.13.10 4.2.7.2.686 [id number] [facility] 2023-06-29 09:23:21 2023-06-29 23:59:00 Outpatient R ABRAHAN [facility] [id number] [facility] 2023-06-29 09:23:21 2023-06-29 23:59:00 Hospital Encounter Lindy Gauthier [facility] 1.2.840.114 350.1.13.10 4.2.7.2.686 [id number] [facility] 2023-06-25 14:30:00 2023-06-25 14:30:00 Outpatient R [facility] [id number] [facility] 2023-06-22 15:30:00 2023-06-22 16:30:00 Office Visit Abrahan [facility] FERNANDEZ?[facility] 1..840.114 350.1.13.10 4.2.7.2.686 [id number] [facility] 2023-06-22 15:30:00 2023-06-22 15:30:00 Outpatient LINDY ANDERS [facility] [id number] [facility] 2023-06-22 00:00:00 2023-06-22 00:00:00 Orders Only Doctor Unassigned, [place] [facility] 1..840.114 350.1.13.10 4.2.7.2.686 [id number] [facility] 2023-05-25 00:00:00 2023-05-25 00:00:00 Case Management Yasmine Stanley 1..840.114 350.1.13.10 4.2.7.2.686 [id number] [facility] 2023-05-01 10:56:45 2023-05-01 10:56:45 Outpatient [facility] [id number] Gualberto Uriostegui [place] 2023-04-16 15:56:20 2023-04-16 15:56:20 Outpatient [facility] [id number] Gualberto Uriostegui [place] 2022-11-06 09:47:54 2022-11-06 09:47:54 Outpatient [facility] [id number] Gualberto Uriostegui [place] 2022-09-12 13:01:07 2022-09-12 13:01:07 Outpatient SFA [facility] 13 Gualberto Uriostegui [place] 2022-08-19 08:52:10 2022-08-19 08:52:10 Outpatient SFA [facility] Gualberto Uriostegui [place] 2022-08-18 14:50:25 2022-08-18 14:50:25 Outpatient SFA [facility] Gualberto Uriostegui [place] 2022-08-18 00:00:00 2022-08-18 00:00:00 Outpatient Visit [id number] 2022-06-07 11:00:00 2022-06-07 11:00:00 Outpatient R TRINITY CRABTREE [facility] [id number] [facility] 2022-05-22 00:00:00 2022-05-22 00:00:00 Orders Only Doctor Unassigned, [place] [facility] 1.2840.114 350.1.13.10 4.2.7.2.686 [id number] [facility] 2022-05-16 04:19:00 2022-05-18 09:10:00 Inpatient P TRINITY CRABTREE [facility] [id number] [facility] 2022-05-16 04:19:00 2022-05-18 09:10:00 Hospital Encounter AdTrinity hastings [facility] 1.2840.114 350.1.13.10 4.2.7.2.686 [id number] [facility] 2022-05-17 07:38:37 2022-05-17 07:38:37 Anesthesia Event Filipe [facility] 1.2840.114 350.1.13.10 4.2.7.2.686 [id number] [facility] 2022-05-17 07:36:41 2022-05-17 07:36:41 Anesthesia Event Filipe [facility] 1.2840.114 350.1.13.10 4.2.7.2.686 [id number] [facility] 2022-05-16 13:05:00 2022-05-17 00:18:00 Anesthesia Event Stan Pike Stacey [facility] 1.2840.114 350.1.13.10 4.2.7.2.686 [id number] [facility] 2022-05-16 00:00:00 2022-05-16 00:00:00 Orders Only Doctor Unassigned, [place] [facility] 1.2840.114 350.1.13.10 4.2.7.2.686 [id number] [facility] 2022-05-15 15:15:00 2022-05-15 15:30:00 Laboratory Only Only, Adc Test Advenkata Trinity [facility] 1.0.114 350.1.13.10 4.2.7.2.686 [id number] [facility] 2022-05-15 15:15:00 2022-05-15 15:15:00 Outpatient R [facility] [id number] [facility] 2022-05-15 15:15:00 2022-05-15 15:15:00 Outpatient R ADUM [facility] [id number] [facility] 2022-05-15 00:00:00 2022-05-15 00:00:00 Orders Only Doctor Unassigned, [place] [facility] 1.2.114 350.1.13.10 4.2.7.2.686 [id number] [facility] 2022-05-10 09:45:00 2022-05-10 10:27:38 Outpatient R [facility]VENKATA [facility] [id number] [facility] 2022-05-10 09:45:00 2022-05-10 10:27:38 Routine Visit Leyda [facility] 1..114 350.1.13.10 4.2.7.2.686 [id number] [facility] 2022-05-10 09:45:00 2022-05-10 09:45:00 Outpatient R ADTRINITY HASTINGS [facility] [id number] [facility] 2022-05-09 09:45:00 2022-05-09 10:00:00 Prepress Proofer Visit 2, Adc Lab AdTrinity hastings [facility] 1.2840.114 350.1.13.10 4.2.7.2.686 [id number] [facility] 2022-05-09 09:45:00 2022-05-09 09:45:00 Outpatient R LEYDA [facility] [id number] [facility] 2022-05-09 09:15:00 2022-05-09 09:15:00 Outpatient R [facility] [id number] [facility] 2022-05-06 00:00:00 2022-05-06 00:00:00 [facility] 1..114 350.1.13.10 4.2.7.2.686 [id number] [facility] 2022-05-03 09:30:00 2022-05-03 10:04:02 Outpatient R HEATHER MOORE CHERYAL [facility] [id number] [facility] 2022-05-03 09:30:00 2022-05-03 10:04:02 Routine Visit SteveTrinity hastings Heather Norwood [facility] 1..114 350.1.13.10 4.2.7.2.686 [id number] [facility] 2022-04-27 00:00:00 2022-04-27 00:00:00 Case Management Brittany [facility] 1.0.114 350.1.13.10 4.2.7.2.686 [id number] [facility] 2022-04-26 15:30:00 2022-04-26 16:30:27 Outpatient R JOSE ALFREDOCHARI CURRYGISSELLE VELIZPATRICIOHEATHER [facility] [id number] [facility] 2022-04-26 15:30:00 2022-04-26 16:30:27 Routine Visit EdiernestinaHeather curry [facility] 1.840.114 350.1.13.10 4.2.7.2.686 [id number] [facility] 2022-04-26 11:00:00 2022-04-26 11:00:00 Outpatient TRINITY GONZALEZ [facility] [id number] [facility] 2022-04-26 00:00:00 2022-04-26 00:00:00 Orders Only Doctor Unassigned, [place] [facility] 1.840.114 350.1.13.10 4.2.7.2.686 [id number] [id number] [facility] 2022-04-26 00:00:00 2022-04-26 00:00:[address] [facility] 1.840.114 350.1.13.10 4.2.7.2.686 [id number] [facility] 2022-04-24 09:00:00 2022-04-24 09:15:00 Prepress Proofer Visit 2, Adc Lab Trinity Crabtree [facility] 1.840.114 350.1.13.10 4.2.7.2.686 [id number] [facility] 2022-04-24 09:00:00 2022-04-24 09:00:00 Outpatient TRINITY GONZALEZ [facility] [id number] [facility] 2022-04-24 00:00:00 2022-04-24 00:00:00 Telephone Trinity Crabtree [facility] 1.2.840.114 350.1.13.10 4.2.7.2.686 [id number] 134 [id number] [facility] 2022-04-21 13:00:00 2022-04-21 13:05:39 Outpatient Sam CRABTREE [facility] [id number] [facility] 2022-04-21 13:00:00 2022-04-21 13:05:39 Initial Visit Yin Morales Vivian L [facility] 1.2.840.114 350.1.13.10 4.2.7.2.686 [id number] [facility] 2022-04-21 13:00:00 2022-04-21 13:05:39 Outpatient R LEYDA [facility] [id number] [facility] 2022-04-21 00:00:00 2022-04-21 00:00:00 Telephone Yin Morales [facility] 1.2.840.114 350.1.13.10 4.2.7.2.686 [id number] [facility] 2021-12-08 09:30:00 2021-12-08 09:30:00 Outpatient ARMANDO GARCIA [facility] [id number] [facility] 2021-07-14 00:00:00 2021-07-14 00:00:00 Annamaria Woods, SLEEP LAB TECHNOLOGIST: [address], [place] [address] , Ph. [facility] - Lindsey Yarsanism HOP - [facility] ELECTRICIAN SUPERVISOR [id number] Re justin [facility] 2021-06-22 13:30:00 2021-06-22 13:30:00 Outpatient HI FONTAINE [facility] [id number] [facility] 2021-06-01 14:05:00 2021-06-01 23:59:00 Outpatient R MÓNICA MARQUEZ [facility] [id number] [facility] 2021-06-01 14:05:00 2021-06-01 23:59:00 Hospital Encounter [facility] 1.2.840.114 350.1.13.10 4.2.7.2.686 [id number] [facility] 2021-06-01 13:45:52 2021-06-01 14:00:52 Office Visit Hi Nunez Mónica Marquez [facility] 1.2.840.114 350.1.13.10 4.2.7.2.686 [id number] [facility] 2021-06-01 00:00:00 2021-06-01 00:00:00 Letter (Out) [facility]anchez [facility] 1.2.840.114 350.1.13.10 4.2.7.2.686 [id number] [facility] 2021-05-18 16:54:53 2021-05-18 23:59:00 Outpatient R HI NUNEZ [facility] [id number] [facility] 2021-05-18 00:00:00 2021-05-18 00:00:00 Telephone Mónica Marquez [facility] [place] 1.2.840.114 350.1.13.10 4.2.7.2.686 [id number] [facility] 2021-05-18 00:00:00 2021-05-18 00:00:00 Telephone Mónica Marquez [facility] [place] 1.2.840.114 350.1.13.10 4.2.7.2.686 [id number] [facility] 2021-05-12 00:00:00 2021-05-12 00:00:00 Orders Only Doctor Unassigned, [place] [facility] 1.2.840.114 350.1.13.10 4.2.7.2.686 [id number] [facility] 2021-05-11 00:00:00 2021-05-11 00:00:00 Telephone Mónica Marquez [facility] 1.2.840.114 350.1.13.10 4.2.7.2.686 [id number] [facility] 2021-05-11 00:00:00 2021-05-11 00:00:00 Letter (Out) Doctor Unassigned, [place] [facility] 1.2.840.114 350.1.13.10 4.2.7.2.686 [id number] [id number] [facility] 2021-05-11 00:00:00 2021-05-11 00:00:00 Letter (Out) Doctor Unassigned, [place] [facility] 1.2.840.114 350.1.13.10 4.2.7.2.686 [id number] [id number] [facility] 2021-05-09 09:02:00 2021-05-09 14:24:00 Hospital Encounter Mónica Marquez [facility] 1.2.840.114 350.1.13.10 4.2.7.2.686 [id number] [id number] [facility] 2021-05-09 11:15:00 2021-05-09 13:23:00 Surgery Mónica Marquez [facility] 1.2.840.114 350.1.13.10 4.2.7.2.686 [id number] [facility] 2021-05-06 14:54:34 2021-05-06 15:09:34 Laboratory Only Only, Adc Test Mónica Marquez [facility] 1.20.114 350.1.13.10 4.2.7.2.686 [id number] [facility] 2021-05-06 14:53:39 2021-05-06 15:08:39 Prepress Proofer Visit Pob, Adc Lab Main [facility] 1.2.114 350.1.13.10 4.2.7.2.686 [id number] [facility] 2021-05-06 11:45:00 2021-05-06 11:45:00 Outpatient R MÓNICA MARQUEZ [facility] [id number] [facility] 2021-05-06 00:00:00 2021-05-06 00:00:00 Orders Only Doctor Unassigned, [place] [facility] 1.284.114 350.1.13.10 4.2.7.2.686 [id number] [facility] 2021-05-05 00:00:00 2021-05-05 00:00:00 Telephone Hi Nunez [facility] cal[facility] [place] 1.284.114 350.1.13.10 4.2.7.2.686 [id number] [facility] 2021-05-04 14:39:38 2021-05-04 23:59:00 Outpatient R MÓNICA MARQUEZ [facility] [id number] [facility] 2021-05-04 14:39:38 2021-05-04 23:59:00 Hospital Encounter Mónica Marquez [facility] cal[facility] [place] 1.284.114 350.1.13.10 4.2.7.2.686 [id number] [facility] 2021-05-04 14:14:56 2021-05-04 15:19:21 Office Visit Mónica Marquez [facility] 1.2.840.114 350.1.13.10 4.2.7.2.686 [id number] [facility] 2021-05-04 00:00:00 2021-05-04 00:00:00 Prep For Surgery Mónica Marquez [facility] 1.2.840.114 350.1.13.10 4.2.7.2.686 [id number] [facility] 2021-04-28 00:00:00 2021-04-28 00:00:00 Orders Only Doctor Unassigned, [place] [facility] 1.2.840.114 350.1.13.10 4.2.7.2.686 [id number] [facility] 2020-10-06 16:25:00 2020-10-06 20:28:00 Emergency Ge Tolbert [facility] 1.2.840.114 350.1.13.10 4.2.7.2.686 [id number] 084 [id number] 2020-10-06 16:25:00 2020-10-06 20:28:00 Emergency Ge Tolbert [facility] 1.2.840.114 350.1.13.10 4.2.7.2.686 [id number] 084 [id number] [facility] 2020-10-06 00:00:00 2020-10-06 00:00:00 Orders Only Doctor Unassigned, [place] [facility] 1.2.840.114 350.1.13.10 4.2.7.2.686 [id number] 2020-10-06 00:00:00 2020-10-06 00:00:00 Orders Only Doctor Unassigned, [place] [facility] 1.2.840.114 350.1.13.10 4.2.7.2.686 [id number] [facility] 2019-11-11 00:00:00 2019-11-11 00:00:00 Annamaria Woods, SLEEP LAB TECHNOLOGIST: [address], [place] [address] , Ph[address] [facility] Yarsanism [facility] ELECTRICIAN SUPERVISOR [id number] [facility] 2019-04-17 00:00:00 2019-04-17 00:00:00 Orders Only Doctor Unassigned, [place] [facility] 1.2.840.114 350.1.13.10 4.2.7.2.686 [id number] [id number] 2019-04-17 00:00:00 2019-04-17 00:00:00 Orders Only Doctor Unassigned, [place] [facility] 1.2.840.114 350.1.13.10 4.2.7.2.686 [id number] [id number] [facility] Results Test Description Test Time Test Comments Results Result Comments Source US Pelvis complete with transvaginal 15:41:00 Interpretation of outside imaging, ?US PELVIS COMPLETE WITH TRANSVAGINALperformed at the [facility] on 01/17/2025 at 4:05 PM anduploaded to [facility] PACS Today's date 01/19/2025 8:54 AM HISTORY: Vaginal bleeding in COMPARISON: first trimester dated 12/18/2024 LMP = unknown FINDINGS: Uterus: The uterus measures 11.1 x 6.6 x 7.3 cm. The myometrium appears homogenous.No focal lesion is detected. The endometrium is enlarged with multiplecomplex cystic structures noted. [facility] HCG [id number] 05:51:21* Test Item Value Reference Range Interpretation Comme nts BETA HCG (test code = 5809148597) [id number] See_Comment [Automated [employer]] The system which generated this result transmitted reference range: Non- female and male patients: <5 mIU/mL. The reference range was not used to interpret this result as normal/abnormal. LISA (test code = LISA) Gestational Age ?Range (mIU/mL) 1-10 ?Weeks ?[id number] Weeks ?[id number] Weeks ?[id number] Weeks ?[id number] Biotin has been reported to cause a negative bias, interpret results relative to patient's use of biotin. [facility] [id number] 03:34:00 * Test Item Value Reference Range Interpretation Comme nts ABO & RH (test code = 20) A POSITIVE IAT (test code = 1185) Negative [facility] [id number] 03:34:00 * Test Item Value Reference Range Interpretation Comme nts ABO & RH (test code = 20) A POSITIVE IAT (test code = 1185) Negative [facility] [id number] 03:28:44* Test Item Value Reference Range Interpretation Comme nts WBC (test code = 6690-2) 9.9 4.30-11.10 RBC (test code = 789-8) 3.9 3.93-5.25 L HGB (test code = 718-7) 12 g/dL 11.6-15.0 HCT (test code = 4544-3) 34.9 % 35.7-45.2 L MCV (test code = 787-2) 89.5 fL 80.6-95.5 MCH (test code = 785-6) 30.8 pg 25.9-32.8 MCHC (test code = 786-4) 34.4 g/dL 31.6-35.1 RDW-SD (test code = 29843-5) 42.5 fL 39.0-49.9 RDW-CV (test code = 788-0) 12.9 % 12.0-15.5 PLT (test code = 777-3) 273 166-358 MPV (test code = 15977-4) 9.3 fL 9.5-12.9 L NRBC/100 WBC (test code = 5709318378) 0 0.0-10.0 NRBC x10^3 (test code = 4514522305) See_Comment [Automated messa ge] The system which generated this result transmitted reference range: 10*3/?L. The reference range was not used to interpret this result as normal/abnormal. GRAN MAT (NEUT) % (test code = 770-8) 60.7 % IMM GRAN % (test code = 1215219100) 0.5 % LYMPH % (test code = 736-9) 30.6 % MONO % (test code = 5905-5) 5.4 % EOS % (test code = 713-8) 2.5 % BASO % (test code = 706-2) 0.3 % GRAN MAT x10^3(ANC) (test code = 1186104451) 6.01 10*3/uL 1.88-7.09 IMM GRAN x10^3 (test code = 6904945071) 0.05 10*3/uL 0.00-0.06 LYMPH x10^3 (test code = 731-0) 3.03 10*3/uL 1.32-3.29 MONO x10^3 (test code = 742-7) 0.53 10*3/uL 0.33-0.92 EOS x10^3 (test code = 711-2) 0.25 10*3/uL 0.03-0.39 BASO x10^3 (test code = 704-7) 0.03 10*3/uL 0.01-0.07 Lab Interpretation (test code = 45802-6) Abnormal [facility] with [id number] 03:28:44* Test Item Value Reference Range Interpretation Comme nts WBC (test code = 6690-2) 9.9 4.30-11.10 RBC (test code = 789-8) 3.9 3.93-5.25 L HGB (test code = 718-7) 12 g/dL 11.6-15.0 HCT (test code = 4544-3) 34.9 % 35.7-45.2 L MCV (test code = 787-2) 89.5 fL 80.6-95.5 MCH (test code = 785-6) 30.8 pg 25.9-32.8 MCHC (test code = 786-4) 34.4 g/dL 31.6-35.1 RDW-SD (test code = 63363-3) 42.5 fL 39.0-49.9 RDW-CV (test code = 788-0) 12.9 % 12.0-15.5 PLT (test code = 777-3) 273 166-358 MPV (test code = 73374-7) 9.3 fL 9.5-12.9 L NRBC/100 WBC (test code = 4516515284) 0 0.0-10.0 NRBC x10^3 (test code = 5123488434) See_Comment [Automated messa ge] The system which generated this result transmitted reference range: 10*3/?L. The reference range was not used to interpret this result as normal/abnormal. GRAN MAT (NEUT) % (test code = 770-8) 60.7 % IMM GRAN % (test code = 3205811711) 0.5 % LYMPH % (test code = 736-9) 30.6 % MONO % (test code = 5905-5) 5.4 % EOS % (test code = 713-8) 2.5 % BASO % (test code = 706-2) 0.3 % GRAN MAT x10^3(ANC) (test code = 7355226559) 6.01 10*3/uL 1.88-7.09 IMM GRAN x10^3 (test code = 2100396269) 0.05 10*3/uL 0.00-0.06 LYMPH x10^3 (test code = 731-0) 3.03 10*3/uL 1.32-3.29 MONO x10^3 (test code = 742-7) 0.53 10*3/uL 0.33-0.92 EOS x10^3 (test code = 711-2) 0.25 10*3/uL 0.03-0.39 BASO x10^3 (test code = 704-7) 0.03 10*3/uL 0.01-0.07 Lab Interpretation (test code = 12590-7) [facility]normal [facility] KP1688-95-44 20:24:00* Test Item Value Reference Range Interpretation Comme nts Beta HCG, Quantitative (test code = XMK1976) 12485.0 [facility] CtrBilirubin crjga5603-60-89 19:40:00* Test Item Value Reference Range Interpretation Comme nts Total Bilirubin (test code = QXS9826) 0.3 [facility] CtrSerum or plasma urea nitrogen measurement (mass/volume)2024-12-17 19:40:00* Test Item Value Reference Range Interpretation Comme nts Blood Urea Nitrogen (test co de = 3094-0) 11 [facility] IytYXF2695-43-87 19:40:00* Test Item Value Reference Range Interpretation Comme nts Aspartate Amino Transf (AST/ SGOT) (test code = MKU7999) 48 [facility] CtrCreatinine qkqsg4564-11-18 19:40:00* Test Item Value Reference Range Interpretation Comme nts Creatinine (test code = 047611583) 0.82 [facility] CtrEstimated glomerular filtration rate (GFR) wjvcdchxrzoso3026-81-15 19:40:00* Test Item Value Reference Range Interpretation Comme [facility] Glomerular Filtration Rate C alc (test code = 377071350) > 60.00 [facility] CtrBUN/creatinine lncko7858-01-29 19:40:00* Test Item Value Reference Range Interpretation Comme nts BUN/Creatinine Ratio (test c ode = 05942387) 13.4 [facility] CtrBody fluid potassium jwurmdcfeep2180-67-29 19:40:00* Test Item Value Reference Range Interpretation Comme nts Potassium Level (test code = 2821-7) 4.1 [facility] JgaQB65419-75-76 19:40:00* Test Item Value Reference Range Interpretation Comme nts Carbon Dioxide Level (test c ode = 29911618) 23 [facility] CtrAnion gap vacpowasqbj3511-65-06 19:40:00* Test Item Value Reference Range Interpretation Comme nts Anion Gap (test code = 67717054) 16.1 [facility] CtrCalcium hrzey3270-42-52 19:40:00* Test Item Value Reference Range Interpretation Comme nts Calcium Level (test code = 09216237) 9.6 [facility] CtrGlobulin tcw8463-37-43 19:40:00* Test Item Value Reference Range Interpretation Comme nts Globulin (test code = 491392072) 3.3 [facility] CtrALT (SGPT) ser/ftyg3689-66-60 19:40:00* Test Item Value Reference Range Interpretation Comme nts Alanine Aminotransferase (AL T/SGPT) (test code = 1742-6) 99 [facility] GqbCzlxht4676-43-86 19:40:00* Test Item Value Reference Range Interpretation Comme nts Lipase (test code = 092323788) 52 [facility] CtrALP ser/hhcm6417-60-18 19:40:00* Test Item Value Reference Range Interpretation Comme nts Total Alkaline Phosphatase ( test code = 6768-6) 118 [facility] CtrUrine vzauuqq3741-41-59 19:36:00* Test Item Value Reference Range Interpretation Comme nts Urine Culture (test code = 630-4) SPECIMEN HAS BEEN RECEIVED IN LAB AND IS IN PROGRESS. [facility] CtrUrine leukocyte esterase rbbrurqam6847-34-89 19:35:00* Test Item Value Reference Range Interpretation Comme nts Urine Leukocyte Esterase (te st code = 279335-8) 2+ [facility] CtrRBC count ur wqvt2096-97-81 19:34:00* Test Item Value Reference Range Interpretation Comme nts Urine RBC (test code = 798-9) 51-100 [facility] CtrUrine examination for white blood cells (WBC) 2024-12-17 19:34:00* Test Item Value Reference Range Interpretation Comme nts Urine WBC (test code = 286286509) >100 [facility] CtrAutomated epithelial cells count in urine sediment (number/area)2024-12-17 19:34:00* Test Item Value Reference Range Interpretation Comme nts Urine Epithelial Cells (test code = 13080-4) 0-2 [facility] CtrBacteria detection in urine sediment by light prjywhexls8340-91-95 19:34:00* Test Item Value Reference Range Interpretation Comme nts Urine Bacteria (test code = 15344-6) Large [facility] CtrUrine casts detection by automated method 2024-12-17 19:34:00* Test Item Value Reference Range Interpretation Comme nts Urine Casts (test code = 50178-6) 0-2 [facility] CtrHCG ur XD5407-04-15 19:30:00* Test Item Value Reference Range Interpretation Comme nts Urine HCG, Qualitative (test code = 2106-3) POSITIVE [facility] CtrColor of Urine by Jvkw7511-35-99 19:29:00* Test Item Value Reference Range Interpretation Comme nts Urine Color (test code = 79921-2) Yellow [facility] CtrAppearance of Dtcse2253-70-01 19:29:00* Test Item Value Reference Range Interpretation Comme nts Urine Appearance (test code = 5767-9) Cloudy [facility] nkqugylhv2479-22-38 19:29:00* Test Item Value Reference Range Interpretation Comme [facility] Urine Glucose (UA) (test cod e = 2349-9) Negative [facility] CtrBilirubin hf7423-99-17 19:29:00* Test Item Value Reference Range Interpretation Comme [facility] Urine Bilirubin (test code = 303419993) Negative [facility] CtrKetones zu0751-35-01 19:29:00* Test Item Value Reference Range Interpretation Comme [facility] Urine Ketones (test code = 99944694) Negative [facility] of Urine by Automated test strip 2024-12-17 19:29:00* Test Item Value Reference Range Interpretation Comme nts Urine Specific [place] (test code = 35709-8) 1.020 [facility] CenterUrine blood zawaritrd8938-16-32 19:29:00* Test Item Value Reference Range Interpretation Comme nts Urine Blood (test code = 526520-5) 2+ (MODERATE) [facility] CtrpH oj5058-95-30 19:29:00* Test Item Value Reference Range Interpretation Comme nts Urine pH (test code = 2756-5) 6.500 [facility] CtrProtein cp0997-82-54 19:29:00* Test Item Value Reference Range Interpretation Comme nts Urine Protein (test code = 36360991) 2+ [facility] CtrUrobilinogen, urine, yw5009-92-97 19:29:00* Test Item Value Reference Range Interpretation Comme [facility] Urine Urobilinogen (test cod e = 968909777) 1.0 [facility] CtrUrine nitrate wvkaspgxp7029-88-92 19:29:00* Test Item Value Reference Range Interpretation Comme [facility] Urine Nitrate (test code = 46734-2) Positive [facility] CtrMCV (mean corpuscular volume) determination 2024-12-17 19:24:00* Test Item Value Reference Range Interpretation Comme [facility] Mean Corpuscular Volume (bandar t code = 51340-4) 90.7 [facility] CtrMean corpuscular hemoglobin (MCH) determination 2024-12-17 19:24:00* Test Item Value Reference Range Interpretation Comme [facility] Mean Corpuscular Hemoglobin (test code = 34888621) 30.3 [facility] CenterMean corpuscular hemoglobin concentration (MCHC) gfhhrumlmnchm9055-04-27 19:24:00* Test Item Value Reference Range Interpretation Comme [facility] Mean Corpuscular Hemoglobin Concent (test code = 06501033) 33.4 [facility] CtrRBC distribution width coefficient of variation 2024-12-17 19:24:00* Test Item Value Reference Range Interpretation Comme [facility] Red Cell Distribution Width (test code = 93175540) 13.8 [facility] CtrPlatelet beoel9455-86-88 19:24:00* Test Item Value Reference Range Interpretation Comme [facility] Platelet Count (test code = 05411191) 317 [facility] CtrMean platelet tdtxkj0883-66-22 19:24:00* Test Item Value Reference Range Interpretation Comme [facility] Mean Platelet Volume (test c ode = 68063238) 8.9 [facility] CtrNeutrophils seg % vrh9354-41-73 19:24:00* Test Item Value Reference Range Interpretation Comme [facility] Neutrophils (%) (Auto) (test code = 30108-8) 66.6 [facility] CtrAbsolute immature granulocyte letlk7864-52-85 19:24:00* Test Item Value Reference Range Interpretation Comme nts Absolute Immature Granulocyt e (auto (test code = 23246-1) 0.05 [facility] CtrBasophil % rlpwje4830-53-87 19:24:00* Test Item Value Reference Range Interpretation Comme nts Basophils (%) (Auto) (test c ode = 84547-4) 0.3 [facility] CtrBlood band neutrophils count (number/volume) 2024-12-17 19:24:00* Test Item Value Reference Range Interpretation Comme nts Neutrophils # (Auto) (test c ode = 36603-8) 6.88 [facility] CtrAbsolute lymphocyte cbjkw3906-51-13 19:24:00* Test Item Value Reference Range Interpretation Comme nts Lymphocytes # (Auto) (test c ode = 62764-3) 2.63 [facility] CtrAbsolute basophil wfmaa7489-05-32 19:24:00* Test Item Value Reference Range Interpretation Comme nts Basophils # (Auto) (test cod e = 22787359) 0.03 [facility] CtrAbsolute NRBC emjbk1868-78-37 19:24:00* Test Item Value Reference Range Interpretation Comme nts Nucleated Red Blood Cells # (test code = 139220433) 0 [facility] CtrAbsolute eosinophil acldw5274-20-51 19:24:00* Test Item Value Reference Range Interpretation Comme nts Eosinophils # (Auto) (test c ode = PKK5250) 0.20 [facility] CtrRBC ikmcr8681-86-17 19:24:00* Test Item Value Reference Range Interpretation Comme nts Red Blood Count (test code = 11761695) 4.19 [facility] BfzBykfzcwqrl5695-87-05 19:24:00* Test Item Value Reference Range Interpretation Comme nts Hematocrit (test code = 15783134) 38.0 [facility] CtrCT ANGIOGRAM ABDOMEN/FZHCGG8286-12-47 21:43:56CT ANGIOGRAM ABDOMEN/PELVIS 03/29/2024 3:58 PM HISTORY: [...] acute osseousabnormality. No concerning soft tissue abnormality. [facility]. METABOLIC PANEL (99546)2024-03-29 20:19:07* Test Item Value Reference Range Interpretation Comme nts NA (test code = 0644827957) 138 mmol/L 135-145 K (test code = 2156177582) 4.2 mmol/L 3.5-5.0 CL (test code = 2179612745) 104 mmol/L 98-108 CO2 TOTAL (test code = 2162473113) 24 mmol/L 23-31 AGAP (test code = 7346960863) 10 2-16 BUN (test code = 6442343800) 6 mg/dL 7-23 L GLUCOSE (test code = 7924007469) 99 mg/dL 70-110 CREATININE (test code = 2160-0) 0.70 mg/dL 0.50-1.04 TOTAL BILI (test code = 2332356892) 0.9 mg/dL 0.1-1.1 CALCIUM (test code = 7042533005) 9.8 mg/dL 8.6-10.6 T PROTEIN (test code = 4937286543) 7.4 g/dL 6.3-8.2 ALBUMIN (test code = 1580618746) 4.4 g/dL 3.5-5.0 ALK PHOS (test code = 2692936690) 109 U/L 34-122 ALTv (test code = 1742-6) 192 U/L 5-35 H AST(SGOT) (test code = 7914291089) 234 U/L 13-40 H eGFR (test code = 94737-0) 122.5 mL/min/1.73m2 CKD-EPI eGFR (2020). Assuming creatinine has been stable day-to-day for at least three months, the eGFR indicates Category G1 (>= 90 mL/min/1.73 m2) Lab Interpretation (test code = 08489-8) [facility]normal [facility]IPASE20[facility] 20:19:06* Test Item Value Reference Range Interpretation Comme nts LIPASE (test code = 5502961026) 139 U/L 0-220 Lab Interpretation (test cod e = 14095-7) Normal [facility] WITH RJUG4665-57-77 20:10:26* Test Item Value Reference Range Interpretation [...] 33.1 g/dL 31.6-35.1 RDW-SD (test code = 59637-3) 48.5 fL 39.0-49.9 RDW-CV (test code = 788-0) 13.6 % 12.0-15.5 PLT (test code = 777-3) 236 166-358 MPV (test code = 04576-9) 9.7 fL 9.5-12.9 NRBC/100 WBC (test code = 7594192290) 0.0 0.0-10.0 NRBC x10^3 (test code = 0556681833) See_Comment [Automated messa ge] The system which generated this result transmitted reference range: 10*3/?L. The reference range was not used to interpret this result as normal/abnormal. GRAN MAT (NEUT) % (test code = 770-8) 62.9 % IMM GRAN % (test code = 5340785639) 1.40 % LYMPH % (test code = 736-9) 27.1 % MONO % (test code = 5905-5) 5.8 % EOS % (test code = 713-8) 2.4 % BASO % (test code = 706-2) 0.4 % GRAN MAT x10^3(ANC) (test code = 5064498585) 5.06 10*3/uL 1.88-7.09 IMM GRAN x10^3 (test code = 9526131790) 0.11 10*3/uL 0.00-0.06 H LYMPH x10^3 (test code = 731-0) 2.18 10*3/uL 1.32-3.29 MONO x10^3 (test code = 742-7) 0.47 10*3/uL 0.33-0.92 EOS x10^3 (test code = 711-2) 0.19 10*3/uL 0.03-0.39 BASO x10^3 (test code = 704-7) 0.03 10*3/uL 0.01-0.07 Lab Interpretation (test code = 85533-8) [facility]normal [facility]POCT LTBV3457-12-12 19:46:00* Test Item Value Reference Range Interpretation Comme nts POCT PREG (test code = 1605) Negative On board controls acceptable with C Line (test code = 3574) Yes POCT PREG LOT # (test code = 3579) [id number] POCT PREG TEST DATE ( test code = 3576) 2025-07-05 Lab Interpretation (test cod e = 46117-9) Normal [facility]entonRubella Screen ([facility]) FdL2925-77-89 17:12:59 * Test Item Value Reference Range Interpretation Comme nts Rubella screen IgG (test code = 1387168288) Negative Negative LISA (test code = LISA) Positive - Indicat es the patient was exposed to Rubella through infection or vaccination.Negative - Indicates the patient could be susceptible to Rubella infection.Equivocal - A second specimen should be sent. [facility] with Faccwtwxfkhm6885-00-50 10:09:16* Test Item Value Reference Range Interpretation [...] 32.1 g/dL 31.6-35.1 RDW-SD (test code = 66202-7) 44.1 fL 39-49.9 RDW-CV (test code = 788-0) 13.9 % 12-15.5 PLT (test code = 777-3) See_Comment [Automated message] The system which generated this result transmitted reference range: 166 - 358 10*3/?L. The reference range was not used to interpret this result as normal/abnormal. MPV (test code = 04796-4) 9.6 fL 9.5-12.9 NRBC/100 WBC (test code = 7140536707) See_Comment [Automated message] The system which generated this result transmitted reference range: 0.0 - 10.0 /100 WBCs. The reference range was not used to interpret this result as normal/abnormal. NRBC x10^3 (test code = 3735246902) See_Comment [Automated message] The system which generated this result transmitted reference range: 10*3/?L. The reference range was not used to interpret this result as normal/abnormal. GRAN MAT (NEUT) % (test code = 770-8) 82.7 % IMM GRAN % (test code = 2181097819) 0.90 % LYMPH % (test code = 736-9) 10.6 % MONO % (test code = 5905-5) 5.4 % EOS % (test code = 713-8) 0.3 % BASO % (test code = 706-2) 0.1 % GRAN MAT x10^3(ANC) (test code = 0140871898) 12.50 10*3/uL 1.88-7.09 H IMM GRAN x10^3 (test code = 3739625769) 0.14 10*3/uL 0-0.06 H LYMPH x10^3 (test code = 731-0) 1.61 10*3/uL 1.32-3.29 MONO x10^3 (test code = 742-7) 0.81 10*3/uL 0.33-0.92 EOS x10^3 (test code = 711-2) 0.05 10*3/uL 0.03-0.39 BASO x10^3 (test code = 704-7) 0.01-0.07 Lab Interpretation (test code = 97226-2) [facility]normal [facility] - HDE2141-58-06 07:33:32* Test Item Value Reference Range Interpretation Comme nts RPR (Qualitative) (test code = 25273-8) Nonreactive Nonreactive Lab Interpretation (test cod e = 71754-8) Normal [facility]entonHepatitis B Surface Uwfmtlx3421-30-10 15:27:48 * Test Item Value Reference Range Interpretation Comme nts HBsAg Semi-Quantitative (bandar t code = 5195-3) Negative Negative [facility]entonType and Screen - ONCE BQHA5438-60-18 11:39:32 * Test Item Value Reference Range Interpretation Comme nts ABO & RH (test code = 20) A Positive Performed at [facility] B Laboratory Services - [facility] Blood [address] [place] [id number] Free: [phone] No. [id number] IAT (test code = 1185) Negative Performed at [facility] Laboratory Services - [facility] Blood [address] [place] [address]Qrzo Free: [phone] No. [id number] [facility]entonCBC with Wbdkmptzbwch5111-98-14 11:38:48* Test Item Value Reference Range Interpretation [...] 32.7 g/dL 31.6-35.1 RDW-SD (test code = 70289-5) 46.1 fL 39-49.9 RDW-CV (test code = 788-0) 14.4 % 12-15.5 PLT (test code = 777-3) See_Comment [Automated messa ge] The system which generated this result transmitted reference range: 166 - 358 10*3/?L. The reference range was not used to interpret this result as normal/abnormal. MPV (test code = 56192-5) 9.8 fL 9.5-12.9 NRBC/100 WBC (test code = 9940151880) See_Comment [Automated me ssage] The system which generated this result transmitted reference range: 0.0 - 10.0 /100 WBCs. The reference range was not used to interpret this result as normal/abnormal. NRBC x10^3 (test code = 4758420350) See_Comment [Automated messa ge] The system which generated this result transmitted reference range: 10*3/?L. The reference range was not used to interpret this result as normal/abnormal. GRAN MAT (NEUT) % (test code = 770-8) 71.0 % IMM GRAN % (test code = 0615432275) 1.90 % LYMPH % (test code = 736-9) 19.7 % MONO % (test code = 5905-5) 5.7 % EOS % (test code = 713-8) 1.5 % BASO % (test code = 706-2) 0.2 % GRAN MAT x10^3(ANC) (test code = 6525221817) 7.92 10*3/uL 1.88-7.09 H IMM GRAN x10^3 (test code = 9042303319) 0.21 10*3/uL 0-0.06 H LYMPH x10^3 (test code = 731-0) 2.19 10*3/uL 1.32-3.29 MONO x10^3 (test code = 742-7) 0.63 10*3/uL 0.33-0.92 EOS x10^3 (test code = 711-2) 0.17 10*3/uL 0.03-0.39 BASO x10^3 (test code = 704-7) 0.01-0.07 Lab Interpretation (test code = 25520-3) Abnormal [facility] W/AUTO DIFF WITH YVFIDWCHO9276-48-53 04:43:17* Test Item Value Reference Range Interpretation [...] H ABS NUCLEATED RBCS (test code = 78841) 0.00 K/UL 0.00-0.11 UNLESS OTHER MILLAN INDICATED, ALL TESTING PERFORMED [facility] [address] [place] [address] [employer] MANUFACTURING TECHNICIAN: BRIAN JAUREGUI M.D. CLIA NUMBER [id number] [facility] [place]. [id number] CBC W/AUTO [id number] 00:00:00* Test Item Value Reference Range Interpretation [...] ABS NUCLEATED RBCS (test cod e = 75235) 0.00 K/UL CULTURE, OIWJI6588-72-04 08:19:48SPECIMEN NUMBER: [id number] CULTURE, URINE SPECIMEN NUMBER: [id number] SPECIMEN COMMENT: URINE SOURCE: URINE REPORT STATUS: FINAL FINAL REPORT: 03/31/2022 50-100,000 CFU/ML UROGENITAL LINDSAY PRESENT NO C OMMON PATHOGENSCULTURE, [id number] 00:00:00* Test Item Value Reference Range Interpretation Comme nts CULTURE, URINE (test code = 95382) SPECIMEN NUMBER: [id number] CT/NG, NAAT, [id number] 18:50:49* Test Item Value Reference Range Interpretation Comme nts GONORRHEA, NAAT (test code = 65844) NEGATIVE NEGATIVE IMPORTANT NO DEDE: SEE ANNOUNCEMENT AT [email or web address] NewcosUrineKit Note: Assay methodology is nucleic acid amplification by water aerobics instructor mediated amplification (TMA) utilizing the Aptima Combo 2 Assay. CHLAMYDIA, NAAT (test code = 40994) NEGATIVE NEGATIVE IMPORTANT NO DEDE: SEE ANNOUNCEMENT AT [email or web address] heCobasUrineKit Note: Assay methodology is nucleic acid amplification by water aerobics instructor mediated amplification (TMA) utilizing the Aptima Combo 2 Assay. UNLESS OTHERWISE INDICATED, ALL TESTING PERFORMED [facility] [address] [place] [address] [employer] MANUFACTURING TECHNICIAN: BRIAN JAUREGUI M.D. CLIA NUMBER [id number] [facility] [place]. [id number] VARICELLA ZOSTER [id number] 17:05:21* Test Item Value Reference Range Interpretation Comme nts VARICELLA ZOSTER IgG (test code = 64467) 330 INDEX SEE BELOW INTERPRETATI ON VZV [...] . . INDEX >=165 OBSTETRIC PANEL + [id number] 03:07:18* Test Item Value Reference Range Interpretation [...] H ABS NUCLEATED RBCS (test code = 10336) 0.00 K/UL 0.00-0.11 BLOOD TYPE AND RH [...] >=10 RUBELLA IgG INTERP (test code = 89156) REACTIVE REACTIVE HEPATITIS B SURF AG (test code = 2739) NON-REACTIVE NON-REACTIVE RPR (test code = 80996) NON-REACTIVE NON-REACTIVE RPR TITER (test code = 3500) NOT INDIC. TITER NOT INDIC. HIV 1/2 4TH GEN, RFLX CONF (test code = 3514) NON-REACTIVE NON-REACTIVE HEPATITIS C REFLEX [id number] 03:07:18* Test Item Value Reference Range Interpretation Comme nts HEPATITIS C ANTIBODY (test c ode = 4675) NON-REACTIVE NON-REACTIVE [id number] 03:01:15* Test Item Value Reference Range Interpretation Comme nts RPR RESULT (test code = 3501) NON-REACTIVE NON-REACTIVE RPR TITER (test code = 3500) NOT INDIC. TITER NOT INDIC. OBSTETRIC PANEL + [id number] 00:00:00* Test Item Value Reference Range Interpretation [...] K/UL ABS NUCLEATED RBCS (test code = 75115) 0.00 K/UL BLOOD TYPE AND RH (test code = 3901) A POSITIVE ANTIBODY SCREEN (test code = 3902) NEGATIVE RUBELLA ANTIBODY SCREEN (test code = 4600) 13 IU/ML RUBELLA IgG INTERP (test code = 32692) REACTIVE HEPATITIS B SURF AG (test code = 2739) NON-REACTIVE RPR (test code = 45194) NON-REACTIVE RPR TITER (test code = 3500) NOT INDIC. TITER HIV 1/2 4TH GEN, RFLX CONF (test code = 3514) NON-REACTIVE HEPATITIS C REFLEX [id number] 00:00:00* Test Item Value Reference Range Interpretation Comme nts HEPATITIS C ANTIBODY (test c ode = 4675) NON-REACTIVE [id number] 00:00:00* Test Item Value Reference Range Interpretation Comme nts RPR RESULT (test code = 3501) NON-REACTIVE RPR TITER (test code = 3500) NOT INDIC. TITER VARICELLA ZOSTER [id number] 00:00:00* Test Item Value Reference Range Interpretation Comme nts VARICELLA ZOSTER IgG (test c ode = 74017) 330 INDEX GC AND CHLAMYDIA, AMPLIFIED, [id number] 00:00:00* Test Item Value Reference Range Interpretation Comme nts GONORRHEA, NAAT (test code = 25388) NEGATIVE CHLAMYDIA, NAAT (test code = 02865) NEGATIVE Free T4 and TSH panel - Serum or [id number] 00:00:00* Test Item Value Reference Range Interpretation Comme nts Thyrotropin [Units/volume] i n Serum or Plasma by Detection limit <= 0.005 mIU/L (test code = 10978-1) 3.180 uIU/mL 0.450-4.500 Thyroxine (T4) free [Mass/volume] in Serum or Plasma (test code = 3024-7) 1.15 NG/dL 0.82-1.77 [facility] Auto Differential panel - Blood 2021-07-15 [...] immature cells (test code = immature cells) inpatient pharmacist Neutrophils [#/volume] in Bl ood by Automated [...] Blood by Automated count (test code = 04215-8) 1 % not estab. Immature granulocytes [#/volume] in Blood by Automated count (test code = 15008-9) 0.0 x10e3/uL 0.0-0.1 Nucleated erythrocytes/100 leukocytes [Ratio] in Blood by Automated count (test code = 94232-6) inpatient pharmacist Morphology [Interpretation] in Blood Narrative (test code = 62709-3) inpatient pharmacist [facility] ProgramComprehensive metabolic 2000 panel - Serum or [id number] 00:00:00* Test Item Value Reference Range Interpretation [...] by Creatinine-based formula (CKD-EPI) (test code = 67402-7) 118 mL/min/1.73 >59 Glomerular filtration rate/1.73 sq M.predicted among blacks [Volume Rate/Area] in Serum, Plasma or Blood by Creatinine-based formula (CKD-EPI) (test code = 91898-6) 136 mL/min/1.73 >59 Urea nitrogen/Creatinine [Mass Ratio] in Serum or Plasma (test code = 3097-3) 14 9-23 Sodium [Moles/volume] in Serum or Plasma (test code = 2951-2) 140 mmol/L 134-144 Potassium [Moles/volume] in Serum or Plasma (test code = 2823-3) 4.3 mmol/L 3.5-5.2 Chloride [Moles/volume] in Serum or Plasma (test code = 2075-0) 105 mmol/L 96-106 Carbon dioxide, total [Moles/volume] in Serum or Plasma (test code = 2027-9) 21 mmol/L 20-29 Calcium [Mass/volume] in Serum or Plasma (test code = 70666-7) 9.5 mg/dL 8.7-10.2 Protein [Mass/volume] in Serum or Plasma (test code = 2885-2) 6.6 g/dL 6.0-8.5 Albumin [Mass/volume] in Serum or Plasma (test code = 1751-7) 4.5 g/dL 3.9-5.0 Globulin [Mass/volume] in Serum by calculation (test code = 48900-3) 2.1 g/dL 1.5-4.5 Albumin/Globulin [Mass Ratio ] [...] code = 1742-6) 264 IU/L 0-32 [facility] - Serum or Plasma 2021-07-15 [...] or Plasma by calculation (test code = 58829-1) 28 mg/dL 5-40 Cholesterol in LDL [Mass/vol ume] in Serum or Plasma by calculation (test code = 19458-5) 103 mg/dL 0-99 H Laboratory comment [Text] in Report Narrative (test code = 45517-6) inpatient pharmacist [facility] [Presence] in Serum by RPR 2021-07-15 00:00:00* Test Item Value Reference Range Interpretation Comme nts Reagin Ab [Presence] in Seru m by RPR (test code = 38339-0) non reactive non reactive [facility]+2 Ab+HIV1 p24 Ag [Presence] in Serum or Plasma by [id number] 00:00:00* Test Item Value Reference Range Interpretation Comme nts HIV 1+2 Ab+HIV1 p24 Ag [Presence] in Serum or Plasma by Immunoassay (test code = 76637-6) non reactive non reactive [facility]atitis [facility] virus surface Ag [Presence] in Serum or Plasma by [id number] 00:00:00* Test Item Value Reference Range Interpretation Comme nts Hepatitis B virus surface Ag [Presence] in Serum or Plasma by Immunoassay (test code = 5196-1) negative negative [facility], [id number] 00:00:00* Test Item Value Reference Range Interpretation Comme nts Interpretation and review of laboratory results (test code = 05785-0) note Report (test code = 28758-4) . [facility] Programpregnancy test, [id number] 15:04:00* Test Item Value Reference Range Interpretation Comme nts HCG (test code = HCG) negative [facility] History and Physical Notes Date/Time Note Provider Source 2025-01-17 21:42:41 GYNECOLOGY ADMISSION H&P 01/17/2025 9:42 PM CC: vaginal bleeding and abdominal pain in HPI: Aisha Tesfaye is a 29 year old at approximately 13w gestation by unsure LMP with history of depression who presents for vaginal bleeding and abdominal pain in . The patient states she has been having light vaginal spotting when wiping for the past 3-4 days with mild abdominal cramping. Earlier today she had and increase in abdominal pain and passage of a blood clot. She then began having heavier vaginal bleeding soaking through a pad in 30 minutes. Endorses mild dizziness and lightheadedness occasionally over the past few days. Of note, the patient has been seen at multiple EDs over the past few weeks for intermittent abdominal pain and told different things about her . She reports she did have a previous ultrasound that showed an intrauterine gestational sac. Denies nausea, vomiting, fever, chills, bladder or bowel symptoms, CP, SOB. LMP: 10/12/2024, unsure as periods are not regular. REVIEW OF SYSTEMS: Constitutional: negative Eyes: negative ENT/Mouth: negative Cardiovascular: negative Respiratory: negative Gastrointestinal:pain Genitourinary: vaginal bleeding Musculoskeletal: negative Skin/breast: negative Neurological: negative Psychiatric: negative Endocrine: negative Hemat/Lymph: negative Allergic/Immuno:none HISTORIES: Past Medical History: Diagnosis Date Abnormal maternal glucose tolerance, antepartum 04/29/2022 Abnormal uterine bleeding ADHD (attention deficit hyperactivity disorder) Anemia ongoing, not currently taking medication Anxiety ongoing, not currently taking medication, not seeing MD at this time. Bipolar disorder Bipolar disorder Depression ongoing, not currently taking medication Dysmenorrhea 10/08/2013 STD (sexually transmitted disease) 2018 trichomonas, treated Trichomonal vaginitis during in third trimester Past Surgical History: Procedure Laterality Date FINGER ORIF Left 05/09/2021 Surgeon: Mónica Marquez MD; Location: [facility] No Known Allergies No current facility-administered medications for this encounter. Current Outpatient Medications Medication Sig Dispense Refill ondansetron 4 mg disintegrating tablet Take 1 tablet by mouth every 4 (four) hours as needed for Nausea and Vomiting (N/V). 20 tablet 0 pantoprazole 40 mg EC tablet Take 1 tablet by mouth in the morning. 30 tablet 0 topiramate 100 mg tablet Take 1 tablet by mouth in the morning. 30 tablet 0 buPROPion XL (WELLBUTRIN XL) 150 mg 24 hr tablet Take 1 tablet by mouth in the morning. proMETHazine 25 mg tablet TAKE 1 TO 2 TABLETS BY MOUTH EVERY 6 HOURS NEEDED FOR NAUSEA AND VOMITING ibuprofen 600 mg tablet Take 1 tablet by mouth every 6 (six) hours as needed (Pain). Take with food or milk. 60 tablet 1 Family History Problem Relation Age of Onset Diabetes Maternal Uncle Arthritis Mother Arthritis Maternal Aunt Breast Cancer Maternal Grandmother Arthritis Maternal Grandmother Arthritis Maternal Grandfather Social History Socioeconomic History Marital status: Single Spouse name: Not on file Number of children: 0 Years of education: Not on file Highest education level: Not on file Occupational History Not on file Tobacco Use Smoking status: Never Smokeless tobacco: Never Vaping Use Vaping status: Never Used Substance and Sexual Activity Alcohol use: Not Currently Drug use: No Sexual activity: Yes Partners: Male control/protection: Contraceptive Patch Other Topics Concern Not on file Social History Narrative Episcopal preference is Adventism. Patient lives with boyfriend and child. Patient has puppies. Social Drivers of Health Financial Resource Strain: Not on file Food Insecurity: Not on file Transportation Needs: Not on file Physical Activity: Not on file Stress: Not on file Social Connections: Not on file Housing Stability: Not on file VITALS: BP 108/64 | Pulse 87 | Temp 36.4 ?C (97.6 ?F) (Oral) | Resp 18 | Ht 1.651 m (5' 5") | Wt 104.3 kg (230 lb) | SpO2 97% | BMI 38.27 kg/m? PHYSICAL EXAM: Gen: A&Ox3, in mild distress due to pain CV: Regular rate Pulm: Unlabored breathing Abd: Soft, moderately TTP of RLQ and LLQ, worst at midline, ND, no rebound or guarding Ext: No calf tenderness : Normal appearing external genitalia. Moderate amount of dark red blood and multiple small blood clots present in the vaginal vault. Cervix visually closed with mucous and blood clots at os. No active bleeding noted. LABS: [facility] 01/17/2025 [id number] 12/17/2024 [id number] IMAGING: [facility] 01/17/25: FINDINGS: UTERUS: No IUP identified. Complex cystic and solid contents present within the endometrial canal measuring approximately 2 cm and with areas of possible vascular flow. No free fluid is seen in the pelvis. RIGHT OVARY: Normal flow without focal mass. LEFT OVARY: Normal flow without focal mass. IMPRESSION: No IUP identified. Complex cystic and solid contents within the endometrial canal could reflect retained products of conception or molar . Per patient history, there was suspicion of a failed first trimester approximately 2 weeks prior. Recommend gynecologic consultation. ASSESSMENT/PLAN: Aisha Tesfaye is a 29 year old at approximately 13w gestation by unsure LMP with history of depression who presents for vaginal bleeding and abdominal pain in . Suspected incomplete spontaneous - Pt with 3 day history of vaginal spotting and abdominal cramping with passage of clot and increase in bleeding earlier today - 10/12/2024, unsure as periods are not regular. - [facility] 01/17 showing no identifiable IUP with complex cystic and solid contents within the endometrial canal that could reflect retained products of conception or molar - Rh positive, rhogam not indicated - bHCG 25,458 (12/17) -> 60,363 (01/17) - Hgb/hct 12.0/34.9 on admission - Vitals stable, non tachycardic, normotensive - pt denies dyspnea, chest pain, palpitations - Risks/benefits/alternatives discussed for surgical management of incomplete , pt agreeable to plan of care Plan: - Admit to gynecology service for observation and pain management overnight with plan for D&C in the AM - Consents signed for Dilation and Curettage paper copy in patient's chart and uploaded to GELI tab - [facility] from OSH submitted to radiology for read - [facility] Quij[facility] who d/w Dr. Clayton Canchola MD OBGYN PGY1 01/17/25 Cosigned by Tay Arnold DO at 01/18/2025 9:33 AM CDT Associated attestation - Tay Arnold DO - 01/18/2025 9:33 AM CDT Attending addendum: I was LIEUTENANT FIREFIGHTER Faculty on 01/17/2025 and personally evaluated and examined the patient with the resident staff. I agree with the plan as listed on the providers note. This is a 29 yo who is at approximately 13 weeks gestation by unsure LMP who presents as a transfer from OSH with findings of RPOC from missed AB (solid/ cystic components visualized intrauterine), adnexa appears unremarkable. Will add for for Suction D&C in AM with repeat AM labs (CBC, B-HCG). Prior [facility] [place] [facility] 25k. All questions answered. Tay Arnold DO Maternal Medicine/ OB-LIEUTENANT FIREFIGHTER PGY-5 OBSTETRICS & GYNECOLOGY [facility] Notes <thead> Date/Time Note Provider Source 2025-01-18 12:42:[address] Arnold, no molecular genetics testing to be done on Products of Conception specimen, so may be placed in formalin. Lizett High RN [facility] 2025-01-18 12:19:11 Problem: Falls, Risk of Goal: Absence of falls Outcome: Adequate for discharge Elian Knight RN [facility] 2025-01-18 10:16:14 DILATION AND CURETTAGE OPERATIVE REPORT Date: 01/18/2025 Preoperative Diagnosis: Incomplete Postoperative Diagnosis: Complete Procedure: Suction Dilation and Curettage Surgeon: Edita Busch MD Faculty Surgeon: Dr. Tay Arnold Anesthesia: General Specimens: Products of conception Findings: Uterus sounded to 13 cm, ultrasound revealed thickened endometrium lining with cystic structure, thin endometrial stripe at end of procedure. Cervix appeared normal without lesions or masses. Indication: This is a patient with a history of incomplete vs molar , so she was brought to the OR for D&C. The patient understood risks, benefits and alternatives to the procedure, and informed consent was signed for D&C. All questions were answered prior to the procedure. Patient received 600 mcg oral misoprostol in pre-op. She also received 200 mg IV doxycycline for antibiotic prophylaxis. Narrative: The patient was taken to the operating room and placed under general anesthesia. The patient was positioned, prepped,and draped in the normal sterile fashion in the dorsal lithotomy position using Yellow fins. Bladder was emptied with Red Rubber Catheter. Weighted speculum was placed into the posterior fornix and a curved Clifton was placed into the anterior fornix in order to visualize cervix. Tenaculum was placed on anterior lip of cervix and uterus was sounded to 13 cm. Cervix was then progressively dilated with Sonia Dilators to accommodate 12 polish curette. Suction curette was then introduced to the uterus {under ultrasound guidance. Curette was swept over entire uterine cavity in multiple passes to obtain products of conception, which was collected in the suction container and sent to pathology. Hemostasis noted after tenaculum was removed from cervix. All instruments removed form vagina. Bimanual exam performed and revealed a contracted uterus. All sponge, lap counts were correct x2. The patient tolerated the procedure well, was awakened and transferred to the recovery room. Patient was given IM Hemabate 0.25 mg post-op. Condition of Patient after Surgery: Good Estimated Blood Loss: 200 cc Urine Output: 300 cc Intravenous fluid 800 cc Lactated Ringers Complications: None Edita Busch MD 01/18/2025 11:04 AM Cosigned by Tay Arnold DO at 01/18/2025 11:22 AM CDT Associated attestation - Tay Arnold DO - 01/18/2025 11:22 AM CDT Attestation: Present and available for procedure. Suction D&C for missed AB with RPOC and suspicious for complete molar . Procedure was uncomplicated and performed under US guidance. Hemabate given prophylactically at completion. Uterus was firm on bimanual examination. Total EBL approximately 200 cc. Products of conception were sent to pathology. EMT measured 0.34 cm at completion of procedure. Sonographic image uploaded to media tab. No immediate complications. Tay Arnold DO Maternal Medicine Fellow/ OB-LIEUTENANT FIREFIGHTER PGY-5 01/18/25 11:18 AM [facility] 2025-01-18 00:46:29 Pt to 961 at this time via [facility] transport in stretcher. Respirations even and unlabored, AAOx4, NAD noted. Dennis Harris RN [facility] 2025-01-18 00:13:39 [facility], Report placed by [facility] Paz Pugh RN [facility] 2025-01-17 23:11:53 TERRELL HEADLEY x2 at bedside to perform pelvic exam. This RN chaperoning exam, patient tolerating. Patient walked through each step, verbalized understanding. [facility] 2025-01-17 22:00:00 OB @ bedside T [facility] 2025-01-17 21:45:00 Aisha Tesfaye is a 29 year old female presents to ER as a referral for D&C. Pt started spotting 3-4 days ago and today she passed several clots. Pt has lower abd pain and cramping. Pt denies PMH. Pt A&O x 4 GCS 15, side rails up x 2, bed locked, call light in reach, pt on vital sign machine pain 10/10. T [facility] 2025-01-17 21:13:29 [facility] advised of pt's arrival to ED. T [facility] 2025-01-17 21:10:48 [facility] paged @ [phone]. T [facility] 2025-01-17 21:08:00 Aisha Tesfaye is a 29 year old female here today as a REFERRAL for [facility] due to Molar . Pt arrived on stretcher awake A&Ox4. Pt reports "8/10" pain at this time. NAD noted. RR even/unlabored. Pt to room at this time. Martha Harmon RN [facility] [id number] 23:20:30 [facility] [id number] 23:20:30 Please follow up with [facility] information to be provided within 48 hours. [...] Patient Instructions <tbody> Subchorionic Hematoma Trichomonas Test [facility]2024-06-29 17:54:00 Pt discharged with diagnosis of hematemesis [...] [facility]2024-06-29 15:32:00 Report from Sana HEARD. [place] [id number] 14:13:45 Pt to ED CO vomiting blood and blood in her stool for 5 weeks. States she has also had burning lower abd pain. States multiple episodes per day. Reports bright red and also dark red blood in her emesis. Drinks 2-3 beers daily. Rebecca Barney [facility]
--- NOTE | 2025-05-23 16:37 | RAD REPORT ---
EXAMINATION: Head Brain Wo Cont CLINICAL INDICATION: Female, 29 years old.Headache;Trauma;Syncope TECHNIQUE: Axial CT images from the skull base to the vertex without intravenous contrast. Coronal an d sagittal reformatted images were created from the data set. One or more of the following dose reduction techniques were used: Automated exposure control, adjustment of the mA and/or kV according to patient size, and/or iterative reconstruction. Unless otherwise specified, incidental findings do not require dedicated imaging follow-up. [id number]. COMPARISON: No prior exams FINDINGS: INTRACRANIAL: No acute intracranial hemorrhage. No acute large vascular territory infarct. No hydroce phalus. No mass effect or midline shift. No significant white matter disease. VASCULATURE: No visualized abnormalities in the arteries or dural venous sinuses. SCALP/SKULL: No calvarial fracture identified. No acute soft tissue abnormality. SINUSES: The visualized paranasal sinuses are mostly clear. No significant mastoid fluid. IMPRESSION: No acute intracranial abnormality.
[2025-05-23] MEDS ORDERED: ACETAMINOPHEN 500 MG TAB ONE (16:46)
[2025-05-23] MEDS ORDERED: NA CHLORIDE 0.9% 1,000 ML ONE (16:46)
--- NOTE | 2025-05-23 17:06 | RAD REPORT ---
EXAM: Chest Single View HISTORY: 29 years Female DYSPNEA COMPARISON: No prior exams FINDINGS: LUNGS/PLEURA: The lungs are clear. No pleural effusions or pneumothorax. No pulmonary edema. CARDIAC/MEDIASTINUM: The cardiac silhouette is within normal limits. UPPER ABDOMEN: No significant abnormality. BONES: No acute abnormality. LINES/TUBES/OTHER: N/A IMPRESSION: No evidence of acute cardiopulmonary disease.
[2025-05-23 17:23] LABS: Absolute Lymphocytes (CBC) 2.3 K/uL (0.7-4.9); Hematocrit 31.2 % (36.0-45.0); Hemoglobin 11.0 g/dL (12.0-15.0); MCH 31.9 pg (27.0-35.0); MCHC 35.2 g/dL (32.0-36.0); MCV 90.6 fL (80-100); MPV 7.6 fL (7.6-11.3); Nucleated RBC Absolute Count 0.0 (0-0); Nucleated Red Blood Cells % 0.0 % (0-0); RBC Red Blood Cell Count 3.45 M/uL (3.86-4.86); White Blood Count 10.20 thou/uL (4.3-10.9)
[2025-05-23 17:41] LABS: PT Prothrombin Time 12.7 SECONDS (10-13.0); PTT, Activated Partial Thromb 28.4 SECONDS (27.2-37.4); Protime INR 1.13
[2025-05-23 17:42] LABS: ALT/SGPT 29 U/L (13-56); Albumin 3.1 g/dL (3.4-5.0); Albumin/Globulin Ratio 0.8 (1.1-1.8); Alkaline Phosphatase 82 U/L (45-117); Anion Gap 12.7 mEq/L (5.0-15.0); BUN Blood Urea Nitrogen 12 mg/dL (7-18); Bilirubin Indirect, Calculated 0.2 mg/dL (0.2-0.8); Globulin 3.7 g/dL (2.3-3.5); Glucose Level 92 mg/dL (74-106); Magnesium 1.7 mg/dL (1.6-2.4); Potassium 3.7 mEq/L (3.5-5.1)
[2025-05-23 17:55] LABS: AST/SGOT < 10 U/L (15-37); Troponin High Sensitivity < 3.0 pg/mL (<58.9)
[2025-05-23] MEDS ORDERED: ONDANSETRON 4 MG/2 ML VIAL ONE (18:00)
--- NOTE | 2025-05-23 18:05 | EDPHYS ---
Physician Documentation [facility] Name: Aisha Marie Age: 29 yrs Sex: Female : 1995 Arrival Date: 05/23/2025 Time: 15:46 Bed 2 Private MD: ED Physician Tad Shaffer HPI: 05/23 20:04 This 29 yrs old Female presents to ER via Ambulatory with complaints of Passed Out kb Prior To Arrival, Vomiting - BLOOD, Headache. 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 States she was standing, doing dishes and passed out. Came in because her boss told her to. Also reports ankle swelling intermittently for 5 months and blood in stool for 2+ years. . 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 - Infectious Disease History:: Denies. - Social history:: Smoking status: Patient reports the use of cigarette tobacco products, smokes one-half pack cigarettes per day. ROS: 20:00 Constitutional: As per HPI kb Exam: 17:07 ECG was reviewed by the Attending Physician. kb 20:00 Constitutional: This is a well developed, well nourished patient who is awake, alert, kb and in no acute distress. Head/Face: Normocephalic, atraumatic. ENT: Moist Mucous membranes Cardiovascular: Regular rate Respiratory: Respirations even and unlabored. No increased work of breathing. Talking in full sentences Abdomen/GI: Soft, non-tender. No distention Skin: Warm, dry with normal turgor. Normal color. MS/ Extremity: Pulses equal, no cyanosis. Neurovascular intact. Full, normal range of motion. Neuro: Awake and alert, GCS 15, oriented to person, place, time, and situation. Vital Signs: 16:01 BP 131 / 82; Pulse 90; Resp 18; Temp 98.3(O); Pulse Ox 100% on R/A; Weight 111.13 kg; iw Height 5 ft. 6 in. ; Pain 10/10; 17:12 BP 126 / 65; Pulse 83; Resp 18; Pulse Ox 100% on R/A; ph 18:16 BP 122 / 68; Pulse 80; Resp 16; Temp 98.5; Pulse Ox 100% on R/A; dd2 16:01 Body Mass Index 39.54 (111.13 kg, 167.64 cm) iw 16:01 Pain Scale: Adult iw MDM: 15:50 Medical Screening Exam initiated kb 20:01 Differential Diagnosis: cardiac arrhythmia, idiopathic syncope, vasovagal episode, kb anemia, gi bleed, ICH. Data reviewed: vital signs, nurses notes. Consideration of Admission/Observation Escalation of care including admission/observation considered. admission considered for GI bleed and syncope, but pt has no neuro deficits, ambulatory with steady gait, H\T\H reviewed. Blood in stool has been ongoing for years and pt has appt to follow up with GI for upper and lower GI scopes. Management of patient was discussed with the following: Dr Shaffer. Counseling: I had a detailed discussion with the patient and/or guardian regarding the historical points, exam findings, and any diagnostic results supporting the discharge/admit diagnosis, lab results, radiology results, the need for outpatient follow up, a family practitioner, to return to the emergency department if symptoms worsen or persist or if there are any questions or concerns that arise at home. 05/23 16:02 Order name: Basic Metabolic Panel; Complete Time: 18:01 kb 05/23 16:02 Order name: CBC with Diff; Complete Time: 17:43 kb 05/23 16:02 Order name: Hepatic Function; Complete Time: 18:01 kb 05/23 16:02 Order name: Magnesium; Complete Time: 18:01 kb 05/23 16:02 Order name: Protime (+inr); Complete Time: 17:43 kb 05/23 16:02 Order name: Ptt, Activated; Complete Time: 17:43 kb 05/23 16:02 Order name: Troponin High Sensitivity; Complete Time: 18:01 kb 05/23 16:02 Order name: CT Head Brain wo Cont; Complete Time: 16:38 kb 05/23 16:02 Order name: Chest Single View XRAY; Complete Time: 17:07 kb 05/23 16:02 Order name: Cardiac monitoring; Complete Time: 17:09 kb 05/23 16:02 Order name: EKG - Nurse/Tech; Complete Time: 17:09 kb 05/23 16:02 Order name: IV Saline Lock; Complete Time: 17:09 kb 05/23 16:02 Order name: Labs collected and sent; Complete Time: 17:09 kb 05/23 16:02 Order name: NPO; Complete Time: 16:44 kb 05/23 16:02 Order name: O2 Per Protocol; Complete Time: 16:44 kb 05/23 16:02 Order name: O2 Sat Monitoring; Complete Time: 16:44 kb EC:07 Rate is 87 beats/min. Rhythm is regular. QRS [place] is Normal. NC interval is normal at kb 136 msec. QRS interval is normal at 84 msec. QT interval is normal at 435 msec. Administered Medications: 17:09 Drug: Acetaminophen PO 1000 mg PO once Route: PO; ph 17:40 Follow up: Response: No adverse reaction dd2 17:09 Drug: NS 0.9% IV 1000 ml IV at 1000 ml once; to be given as a bolus over 60 minutes ph Route: IV; Rate: 1000 ml; Site: right antecubital; 18:09 Follow up: IV Status: Completed infusion dd2 18:02 Drug: Ondansetron IVP 4 mg IVP once; over 2 minutes Route: IVP; Site: right antecubital;dd2 18:20 Follow up: Response: No adverse reaction dd2 18:16 Drug: Ketorolac IVP 15 mg IVP once Route: IVP; Site: right antecubital; dd2 18:19 Follow up: Response: Medication administered at discharge. dd2 Disposition: 18:45 Co-signature as Attending Physician, Tad Shaffer MD I reviewed the patient's care rn provided by the Advanced Practice Provider and agree with the diagnosis and treatment plan. Disposition Summary: 05/23/25 18:04 Discharge Ordered Notes: Location: Home kb Condition: Stable kb Diagnosis - Syncope kb Followup: kb - With: Emergency Department - When: As needed - Reason: Worsening of condition Followup: kb - With: Private Physician - When: 2 - 3 days - Reason: Recheck today's complaints, Continuance of care, Re-evaluation by your physician Discharge Instructions: - Discharge Summary Sheet kb - Syncope, [id number] kb Forms: - Medication Reconciliation Form kb - Antibiotic Education kb - Prescription Opioid Use kb - Patient Portal Instructions kb - Leadership Thank You Letter kb - Work release form ph Signatures: Dispatcher [employer] EDMS Claudia Slaughter, MACHINE CLIPPER-C MACHINE CLIPPER-CkMeera Cool, RN RN iw Tad Shaffer MD MD rn Hall, Patricia, RN RN ph ZAY, BRYON, RN RN dd2 Corrections: (The following items were deleted from the chart) 16:03 16:03 BASIC METABOLIC PANEL+C.LAB.BRZ ordered. EDMS EDMS 16:03 16:03 CBC+H.LAB.BRZ ordered. EDMS EDMS 16:03 16:03 HEPATIC FUNCTION+C.LAB.BRZ ordered. EDMS EDMS 16:03 16:03 MAGNESIUM+C.LAB.BRZ ordered. EDMS EDMS 16:03 16:03 PROTIME (+INR)+COAG.LAB.BRZ ordered. EDMS EDMS 16:03 16:03 PTT, ACTIVATED+COAG.LAB.BRZ ordered. EDMS EDMS 16:03 16:03 Troponin High Sensitivity+C.LAB.BRZ ordered. EDMS EDMS 16:03 16:03 Head Brain Wo Cont+CT.RAD.BRZ ordered. EDMS EDMS 16:03 16:03 Chest Single View+RAD.RAD.BRZ ordered. EDMS EDMS
--- NOTE | 2025-05-23 18:05 | ER ---
Nurse's Notes [facility] Name: Aisha Marie Age: 29 yrs Sex: Female : 1995 Arrival Date: 05/23/2025 Time: 15:46 Bed 2 Private MD: Diagnosis: Syncope Presentation: 05/23 15:56 Chief complaint: Patient states: I fainted at work today, I vomited blood the other day iw and I had blood in my stool X a couple years, today I felt nauseated and had body aches , I have a horrible migraine. Coronavirus screen: At this time, the client does not indicate any symptoms associated with coronavirus-19. Ebola Screen: No symptoms or risks identified at this time. Initial Sepsis Screen: Does the patient meet any 2 criteria? No. Patient's initial sepsis screen is negative. Does the patient have a suspected source of infection? No. Patient's initial sepsis screen is negative. Risk Assessment: Do you want to hurt yourself or someone else? Patient reports no desire to harm self or others. 15:56 Acuity: CODY 3 iw 15:56 Method Of Arrival: Ambulatory iw 15:58 Onset of symptoms was May 23, 2025. 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 - Infectious Disease History:: Denies. - Social history:: Smoking status: Patient reports the use of cigarette tobacco products, smokes one-half pack cigarettes per day. Screenin:09 [facility] ED Fall Risk Assessment (Adult) History of falling in the last 3 months, ph including since admission Yes- physiologic fall (2 pts) Confusion or Disorientation No (0 pts) Intoxicated or Sedated No (0 pts) Impaired Gait No (0 pts) Mobility Assist Device Used No (0 pt) Altered Elimination No (0 pt) Score/Fall Risk Level 0 - 2 = Low Risk Oriented to surroundings, Maintained a safe environment, Hourly rounding (assess needs \\T\\ fall precautionary measures) done. Abuse screen: Denies threats or abuse. Denies injuries from another. Nutritional screening: No deficits noted. Tuberculosis screening: No symptoms or risk factors identified. Assessment: 17:10 General: Appears in no apparent distress. comfortable, Behavior is calm, cooperative. ph Pain: Complains of pain in headache and "pain all over". Neuro: Level of Consciousness is awake, alert, obeys commands, Oriented to person, place, time, situation. Cardiovascular: Capillary refill < 3 seconds in bilateral fingers Patient's skin is warm and dry. Cardiovascular: Reports fatigue, lightheadedness, syncope, Rhythm is sinus rhythm. Respiratory: Airway is patent Respiratory effort is even, unlabored, Respiratory pattern is regular, symmetrical. Respiratory: GI: Abdomen is round non-distended, Reports bloody stool, nausea, vomiting. Derm: Skin is pink, warm \\T\\ dry. Vital Signs: 16:01 BP 131 / 82; Pulse 90; Resp 18; Temp 98.3(O); Pulse Ox 100% on R/A; Weight 111.13 kg; iw Height 5 ft. 6 in. ; Pain 10/10; 17:12 BP 126 / 65; Pulse 83; Resp 18; Pulse Ox 100% on R/A; ph 18:16 BP 122 / 68; Pulse 80; Resp 16; Temp 98.5; Pulse Ox 100% on R/A; dd2 16:01 Body Mass Index 39.54 (111.13 kg, 167.64 cm) iw 16:01 Pain Scale: Adult iw ED Course: 15:49 Patient arrived in ED. [id number] 15:50 Claudia Slaughter, ASSISTANT PROFESSOR OF NURSING-C is [facility]. kb 15:50 Tad Shaffer MD is Attending Physician. kb 15:57 Triage completed. iw 16:02 Arm band placed on. iw 16:24 CT Head Brain wo Cont In Process Unspecified. EDMS 16:44 Barb Morley, RN is Primary Nurse. ph 16:55 Chest Single View XRAY In Process Unspecified. EDMS 17:09 Initial lab(s) drawn, by me, sent to lab. EKG done, by ED staff, reviewed by Claudia BRIONES-C. Inserted saline lock: 22 gauge in right antecubital area, using aseptic technique. Blood collected. Flushed with 10 mL NS. 18:16 Patient has correct armband on for positive identification. Bed in low position. Call dd2 light in reach. Provided Education on: D/C EDUCATION. Client placed on continuous cardiac and pulse oximetry monitoring. NIBP monitoring applied. 18:16 No provider procedures requiring assistance completed. IV discontinued, intact, dd2 bleeding controlled, No redness/swelling at site. Pressure dressing applied. Administered Medications: 17:09 Drug: Acetaminophen PO 1000 mg PO once Route: PO; ph 17:40 Follow up: Response: No adverse reaction dd2 17:09 Drug: NS 0.9% IV 1000 ml IV at 1000 ml once; to be given as a bolus over 60 minutes ph Route: IV; Rate: 1000 ml; Site: right antecubital; 18:09 Follow up: IV Status: Completed infusion dd2 18:02 Drug: Ondansetron IVP 4 mg IVP once; over 2 minutes Route: IVP; Site: right antecubital;dd2 18:20 Follow up: Response: No adverse reaction dd2 18:16 Drug: Ketorolac IVP 15 mg IVP once Route: IVP; Site: right antecubital; dd2 18:19 Follow up: Response: Medication administered at discharge. dd2 Medication: 18:16 VIS not applicable for this client. dd2 Outcome: 18:04 Discharge ordered by . kb 18:16 Discharged to home ambulatory, dd2 18:16 Condition: stable 18:16 Discharge instructions given to patient, Instructed on discharge instructions, follow up and referral plans. Demonstrated understanding of instructions, follow-up care, 18:20 Patient left the ED. dd2 Signatures: Dispatcher [employer] EDAR Claudia Slaughter, ASSISTANT PROFESSOR OF NURSING-C ASSISTANT PROFESSOR OF NURSING-Meera Farias RN RN Barb Morley RN RN BRYON COLLAZO RN RN dd2 Morena Quach [email or web address] Corrections: (The following items were deleted from the chart) [id number] 15:56 Chief complaint: Patient states: I fainted at work today, I vomited blood the iw other day and I had blood in my stool iw 15:59 15:56 Chief complaint: Patient states: I fainted at work today, I vomited blood the iw other day and I had blood in my stool X a couple years, today I felt nauseated and had body aches iw 16:02 16:01 BP 131 / 82; Pulse 90bpm; Resp 18bpm; Pulse Ox 100% RA; iw iw 16:03 16:01 BP 131 / 82; Pulse 90bpm; Resp 18bpm; Pulse Ox 100% RA; 111.13 kg; Height 5 ft. 6 iw in.; BMI: 39.5; Pain 10, Adult; iw
[2025-05-23] MEDS ORDERED: KETOROLAC 30 MG/ML INJ ONE (18:09)
[2025-05-23 19:19] VITALS: O2SAT 100
[2025-05-23 19:22] VITALS: BP 122/68; TEMP 98.5
== END 2025-05-23 18:20 | disposition home or self-care (01) ==
LOC: ER 15:46
DX: R55 Syncope and collapse (principal); F17.210 Nicotine dependence, cigarettes, uncomplicated
CPT/HCPCS: 36415; 70450; 71045; 80048; 80076; 83735; 84484; 85025; 85610; 85730; 93005; 96361; 96374; 96375; 99284; J2405; J7030